=== PATIENT | female | born 1995 ===

== ENCOUNTER 2021-01-05 08:29 | Outpatient (REF) | payer OTHER, SELFPAY ==
[2021-01-05 10:42] LABS: MANUAL DIFF FLAG NO
[2021-01-05 10:43] LABS: Basophils Percent Auto 0.4 % (0-2); Eosinophils Absolute Auto 0.1 X10*3/uL (0.0-0.4); Eosinophils Percent Auto 0.8 % (0-4); Hematocrit 40.5 % (37-47); Hemoglobin 13.1 g/dl (12.0-16.0); Imm Gran Abs Auto 0.03 X10*3/uL (0.00-0.03); Imm Gran Pct Auto 0.3 % (0.0-0.4); Lymphocytes Percent Auto 33.4 % (20-40); Mean Corpuscular HGB Conc 32.3 g/dl (31.0-35.0); Mean Corpuscular Hemoglobin 28.7 pg (27.0-33.0); Mean Corpuscular Volume 88.6 fL (80-98); Mean Platelet Volume 10.1 fL (9.4-12.3); Monocytes Absolute Auto 0.6 X10*3/uL (0.1-1.2); Monocytes Percent Auto 6.2 % (2-11); Neutrophils Absolute Auto 5.3 X10*3/uL (2.0-8.3); Neutrophils Percent Auto 58.9 % (45-73); Platelet Count 266 X10*3/uL (160-400); Red Blood Count 4.57 X10*6/uL (4.20-5.50); Red Cell Distribution Width 13.1 % (11.0-16.0)
[2021-01-05 10:58] LABS: Alanine Aminotransferase 20 U/L (0-31); Albumin Level 4.2 g/dL (3.5-5.0); Alkaline Phosphatase 63 U/L (39-117); Anion Gap 14 (12-20); Aspartate Amino Transferase 17 U/L (5-31); Bilirubin Total 0.5 mg/dL (0.0-1.0); Blood Urea Nitrogen 13 mg/dL (9-16); Calcium 8.8 mg/dL (8.4-10.2); Carbon Dioxide 21 mmol/L (22-29); Chloride 111 mmol/L (96-108); Cholesterol 234 mg/dL; Estimated Glomerular Filt Rate > 60; Glucose Fasting 110 mg/dL (60-99); HDL Cholesterol 40 mg/dL; Iron 54 mcg/dL (30-160); LDL Cholesterol Calculated 130 mg/dl; Percent Iron Saturation 17 % (15-50); Potassium 3.9 mmol/L (3.3-5.1); Sodium 142 mmol/L (135-145); Total Iron Binding Capacity 315 mcg/dL (228-428); Total Protein 6.8 g/dL (6.5-8.0); Triglycerides 322 mg/dL; Unsaturated Iron Binding 261 ug/dL
[2021-01-05 11:00] LABS: Appearance Urine HAZY; Color Urine YELLOW; Glucose Urine UA NEG (NEG); Leukocyte Esterase Urine NEG (NEG); Nitrite Urine NEG (NEG); Specific Gravity - Urine 1.025 (1.005-1.025); Urine Blood TRACE (NEG); Urine Ketones NEG (NEG); Urine Protein NEG (NEG-TRACE)
[2021-01-05 11:13] LABS: RBC Urine 0-2 /HPF (0); WBC Urine 0-2 /HPF (0-4)
[2021-01-05 11:14] LABS: Squamous Epithelial Cell Urine 2+ /LPF
[2021-01-05 11:18] LABS: Ferritin 114 ng/mL (10-122); TSH reflex Free T4 4.04 uIU/mL (0.32-4.0)
[2021-01-05 11:51] LABS: Folate 11.8 ng/mL (> or = 4.0); Vitamin B12 341 pg/mL (200-900)
[2021-01-05 11:53] LABS: Free T4 (Free Thyroxine) 0.81 ng/dL (0.71-1.85)
== END 2021-01-05 08:30 | disposition home or self-care (01) ==
LOC: HO.WFDLDS 08:29
PROVIDERS: Visit Provider Family Medicine
DX: Z00.00 Encounter for general adult medical examination without abnormal findings (principal); R53.83 Other fatigue; E53.8 Deficiency of other specified B group vitamins
CPT/HCPCS: 36415; 80053; 80061; 81001; 81003; 82607; 82728; 82746; 83540; 84439; 84443; 85025

== ENCOUNTER 2021-10-08 10:26 | Outpatient (REF) | payer OTHER, SELFPAY ==
[2021-10-08 10:45] LABS: MANUAL DIFF FLAG NO
[2021-10-08 10:56] LABS: Basophils Percent Auto 0.7 % (0-2); Eosinophils Percent Auto 0.9 % (0-4); Hematocrit 41.5 % (37.0-47.0); Hemoglobin 13.8 g/dl (12.0-16.0); Imm Gran Abs Auto 0.01 X10*3/uL (0.00-0.03); Imm Gran Pct Auto 0.2 % (0.0-0.4); Lymphocytes Absolute Auto 1.3 X10*3/uL (1.2-4.9); Lymphocytes Percent Auto 29.1 % (20-40); Mean Corpuscular HGB Conc 33.3 g/dl (31.0-35.0); Mean Corpuscular Hemoglobin 28.9 pg (27.0-33.0); Mean Platelet Volume 9.3 fL (9.4-12.3); Monocytes Absolute Auto 0.5 X10*3/uL (0.1-1.2); Monocytes Percent Auto 9.8 % (2-11); Neutrophils Absolute Auto 2.7 x10*3/uL (2.0-8.3); Neutrophils Percent Auto 59.3 % (45-73); Platelet Count 253 X10*3/uL (160-400); Red Blood Count 4.77 X10*6/uL (4.20-5.50); Red Cell Distribution Width 12.7 % (11.0-16.0); White Blood Count 4.6 X10*3/uL (4.8-10.8)
[2021-10-08 11:04] LABS: Estimated Average Glucose 126 mg/dL
[2021-10-08 11:30] LABS: Alanine Aminotransferase 34 U/L (0-31); Albumin Level 4.4 g/dL (3.5-5.0); Alkaline Phosphatase 74 U/L (39-117); Anion Gap 12 (12-20); Aspartate Amino Transferase 31 U/L (5-31); Bilirubin Total 0.6 mg/dL (0.0-1.0); Blood Urea Nitrogen 12 mg/dL (9-16); Calcium 9.2 mg/dL (8.4-10.2); Carbon Dioxide 22 mmol/L (22-29); Chloride 107 mmol/L (96-108); Cholesterol 262 mg/dL; Estimated Glomerular Filt Rate > 60; Glucose Fasting 120 mg/dL (60-99); HDL Cholesterol 43 mg/dL; LDL Cholesterol Calculated 164 mg/dl; Potassium 4.3 mmol/L (3.3-5.1); Sodium 137 mmol/L (135-145); Total Protein 7.3 g/dL (6.5-8.0); Triglycerides 278 mg/dL
[2021-10-08 11:45] LABS: TSH reflex Free T4 2.74 uIU/mL (0.32-4.0)
[2021-10-08 11:59] LABS: Free T4 (Free Thyroxine) 0.89 ng/dL (0.71-1.85); Thyroid Stimulating Hormone 2.83 uIU/mL (0.32-4.0); Vitamin D 25-OH Total 15.9 ng/mL (>30)
[2021-10-10 06:21] LABS: Triiodothyronine T3 Total 104 ng/dL (76-181)
== END 2021-10-08 10:27 | disposition home or self-care (01) ==
LOC: HO.LAB 10:26
PROVIDERS: PCP Family Medicine; Visit Provider Family Medicine
DX: Z00.00 Encounter for general adult medical examination without abnormal findings (principal); E03.9 Hypothyroidism, unspecified; R79.89 Other specified abnormal findings of blood chemistry; E78.1 Pure hyperglyceridemia; R73.01 Impaired fasting glucose; E55.9 Vitamin D deficiency, unspecified; R53.83 Other fatigue
CPT/HCPCS: 36415; 80053; 80061; 82306; 83036; 84439; 84443; 84480; 85025

== ENCOUNTER 2022-01-31 08:25 | Outpatient (REF) | payer OTHER, SELFPAY ==
[2022-01-31 09:51] LABS: Estimated Average Glucose 126 mg/dL
[2022-01-31 10:12] LABS: Alanine Aminotransferase 29 U/L (0-31); Albumin Level 4.3 g/dL (3.5-5.0); Alkaline Phosphatase 85 U/L (39-117); Anion Gap 17 (12-20); Aspartate Amino Transferase 19 U/L (5-31); Bilirubin Total 0.4 mg/dL (0.0-1.0); Blood Urea Nitrogen 10 mg/dL (9-16); Calcium 9.4 mg/dL (8.4-10.2); Carbon Dioxide 22 mmol/L (22-29); Chloride 105 mmol/L (96-108); Cholesterol 256 mg/dL; Estimated Glomerular Filt Rate > 60; Glucose Fasting 119 mg/dL (60-99); HDL Cholesterol 42 mg/dL; LDL Cholesterol Calculated 140 mg/dl; Potassium 4.3 mmol/L (3.3-5.1); Sodium 140 mmol/L (135-145); Total Protein 7.1 g/dL (6.5-8.0); Triglycerides 370 mg/dL
[2022-01-31 10:34] LABS: Vitamin D 25-OH Total 12.4 ng/mL (>30)
[2022-02-02 11:17] LABS: TS Negative Control Passed; TS Panel A 0; TS Panel B 0; TS Positive Control Passed; TSpotTB Negative (Negative)
== END 2022-01-31 08:26 | disposition home or self-care (01) ==
LOC: HO.LAB 08:25
PROVIDERS: PCP Family Medicine; Visit Provider Family Medicine
DX: Z00.00 Encounter for general adult medical examination without abnormal findings (principal); E55.9 Vitamin D deficiency, unspecified; R73.01 Impaired fasting glucose; Z71.85 Encounter for immunization safety counseling
CPT/HCPCS: 36415; 80053; 80061; 82306; 83036; 86481

== ENCOUNTER → 2022-07-25 09:36 | Outpatient (BNVA) | payer OTHER, SELFPAY | PROVIDERS: PCP Family Medicine; Visit Provider Internal Medicine Endocrinology, Diabetes & Metabolism | DX: E28.2 Polycystic ovarian syndrome (principal) | CPT/HCPCS: 99202 ==

== ENCOUNTER 2022-11-25 14:59 | Outpatient (AMB) | payer OTHER, SELFPAY ==
[2022-11-25 15:01] VITALS: BP 128/82; PULSE 75; RESP 13; TEMP 36.1; O2SAT 95; BMI 61.6
--- NOTE | 2022-11-25 15:01 | MHC.PC.OV ---
Vital Signs 11/25/22 15:01 Height 5 ft 1 in Weight 326 lb BMI 61.6 BP 128/82 Blood Pressure Location Rt brachial Position Sitting Respiration 13 Pulse 75 Pulse Source Pulse Oximeter Temp 96.9 F Temp Source Temporal Artery Scan Pulse Oximetry (%) 95 Oxygen Delivery Method Room Air Intake Visit Reasons: Difficulty Breathing Intake Note: Patient states she has has a worsening cough for ~14 days. Patient states she does not recall a history of asthma. Patient reports sore throat and vomiting accompanies the cough and difficulty breathing. Patient tested at home for covid with a negative result this morning. Patient reports tryingn nyquil, ricola cough drops, and an old inhaler and these things helped but only short term. Patient reports she does not have any more inhallations left on the inhaler. Patient reports needing refills on her medications. Pump Runner Required: No Accompanied by: Self / Same As Patient Allergies bee pollen [BEE STINGS] Allergy (Unknown, Verified 11/25/22 15:17) ANAPHYLAXIS bee sting Allergy (Unknown, Uncoded 11/25/22 15:17) anaphylaxis Medication List - Last Reconciled 11/25/22 by Bella Pepper CNP clonidine HCl 0.1 mg PO BEDTIME ibuprofen 600 mg PO Q8H 10 days sertraline 50 mg PO DAILY Tobacco use date assessed: 11/25/22 Dental Screening Dental Screen Date: 11/25/22 Did you have a dental visit in the last 12 months?: No Did you have a dental problem in the last 6 months where you did not have access to dental care?: No Was dental information given to patient?: Patient has dentist HPI HPI Comments History of Present Illness Details 27 y/o female presents with c/o nonproductive cough for the past 14 days. She reports associated difficulty breathing, headache, and sore throat. She notes she vomited pale green secretion this morning. She notes brief relief with OTC remedies and an old albuterol inhaler. She notes she had a negative home covid test this morning. Denies fever, chills, body aches, fatigue, or weakness. She notes history of asthma and states her last episode was a year ago. She reports history of smoking cigarette occasionally for 2 years. She has not smoked in the past 1 year. 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 Cognitive needs: No Hearing needs: No Vision needs: No Questionnaire Thrive Questionnaire Date Thrive assessed: 05/28/22 ALIA-7 AMB Questionnaire ALIA-7 Date ALIA - 7 assessed: 05/28/22 Source: Developed by Drs. Mauro Callaway, Justine Krishnan, Christiaon June and colleagues, with an educational emelia from [employer]. Review of Systems Const Details: Const Denies chills, Denies fatigue, Denies fever(s), Denies headache(s) and Denies weakness ENT Denies dizziness and Denies headache(s) Card Denies chest pain, Denies lightheadedness, Denies dyspnea and Denies other (Palpitations) Resp Denies cough, Denies dyspnea, Denies wheezing and Denies other ( shortness of breath) GI Denies abdominal pain, Denies melena, Denies hematochezia, Denies change in bowel habits, Denies dyspepsia and Denies nausea Denies hematuria and Denies dysuria Musc Denies abnormal gait, Denies myalgias, Denies arthralgias, Denies numbness and Denies tingling Skin/Breast Denies rash, Denies unusual bruising and Denies wounds Neuro Denies abnormal gait, Denies dizziness, Denies headache(s), Denies memory loss, Denies numbness, Denies Sensory deficit (Neuro), Denies tingling and Denies weakness Psych Denies anxiety, Denies depression, Denies memory loss Endo Denies cold intolerance, Denies fatigue, Denies heat intolerance, Denies polydipsia and Denies polyuria Aller/Immun Denies wheezing Physical exam (Primary Care) Vital Signs: Last Vital Signs Temp 96.9 F 11/25/22 15:01 Pulse 75 11/25/22 15:01 Resp 13 11/25/22 15:01 BP 128/82 11/25/22 15:01 Pulse Ox 95 11/25/22 15:01 Oxygen Delivery Method Room Air 11/25/22 15:01 BMI result Body Mass Index 61.6 Tobacco/Smoking Status: Tobacco use Status Tobacco use date assessed 11/25/22 11/25/22 15:13 Patient Tobacco Use Status Former Tobacco user 11/25/22 15:03 e-Cigarette/Vaping Use Never Used 11/25/22 15:03 Thrive Assessment: Date of Thrive Assessment Date Thrive assessed 05/28/22 11/25/22 15:03 Const Other: General: no acute distress and well developed Nutritional Appearance: well nourished Orientation/consciousness: patient oriented x3 HENMT Head is normocephalic Bilateral ear canal and TM are normal Nasal turbinates and oropharynx are pink and moist Sinuses are nontender with palpation No auricular or cervical lymphadenopathy Eyes General: appearance normal, both eyes and all related structures Pupils: Equal, round and reactive pupils present EOM: EOMs intact bilaterally Resp Effort & Inspection: normal respiratory effort Auscultation: clear to auscultation bilaterally Cardio Rate: regular rate Rhythm: regular rhythm Heart sounds: S1 normal heart sound present, S2 normal heart sound present, no gallops, no murmurs and no rubs GI Palpation (GI): No Abdominal aortic bruit present, Soft to palpation, nontender, No hepatosplenomegaly present and No Rebound tenderness present Auscultation: normal bowel sounds General: Yes no CVA tenderness Back/Spine/Pelvis Back: no CVA tenderness Cervical Spine: cervical ROM normal and No Cervical spine tenderness Thoracic/Lumbar Spine: thoraco-lumbar ROM normal, No pain with thoraco-lumbar ROM, No thoracic spinal tenderness and No lumbar spinal tenderness Extrem General: Yes normal to inspection, No edema and No calf tenderness Skin General: warm and dry. Normal skin color. Normal skin turgor Lesions: no lesions Rashes: no rashes Trauma: no lacerations or abrasions Wounds: no wounds Nails: normal Neuro General: patient oriented x3, gait normal and no focal neuro deficit Cranial nerves: Yes Equal, round and reactive pupils present Cognition (Neuro): normal cognition Gait exam (Neuro): Normal gait present Sensory Exam: No Sensory deficit (Neuro) Psych Appearance: grossly normal Affect: normal affect Attitude: cooperative Thought process: Normal thought process present Assessment and Plan Assessment & Plan (1) Cough: Code(s): R05.9 - Cough, unspecified Plan: 27 y/o female presents with c/o nonproductive cough for the past 14 days. She reports associated difficulty breathing, headache, and sore throat. She notes brief relief with OTC remedies and an old albuterol inhaler. Lungs sounds clear bilaterally Likely allergy, although possible viral Benzonatate and albuterol inhaler ordered. Take as prescribed May take Tylenol ibuprofen for pain or discomfort Chest x-ray ordered Adequate hydration encouraged Cannot rule out COVID-19/RSV/Flu infection Nasal swab acquired and will be sent to the lab Return with worsening or new symptoms Verbalized understanding and agreed with treatment plan (2) Sore throat: Code(s): J02.9 - Acute pharyngitis, unspecified Plan: As above (3) Headache: Code(s): R51.9 - Headache, unspecified Plan: As above (4) Difficulty breathing: Code(s): R06.89 - Other abnormalities of breathing Plan: As above Orders: Orders XR chest 2V Today R05.9 - Cough, unspecified SARS-CoV2/FLU/RSV Today R05.9 - Cough, unspecified Medications: New benzonatate 200 mg PO BID PRN 20 caps 0RF cough albuterol sulfate 90 mcg/actuation 2 puffs inhalation Q4-6H PRN 8.5 grams 3RF shortness of breath or wheezing Changed From ibuprofen 600 mg PO Q8H 10 days 30 tabs 0RF To ibuprofen 600 mg PO Q8H 30 tabs 0RF From sertraline 50 mg PO DAILY To sertraline 50 mg PO DAILY 30 tabs 0RF 30 days From clonidine HCl 0.1 mg PO BEDTIME To clonidine HCl 0.1 mg PO BEDTIME 30 tabs 0RF 30 days Coding Level of Care Code Est Pt Level 3 (45561) Diagnoses Cough R05.9 Sore throat J02.9 Headache R51.9 Difficulty breathing R06.89
== END 2022-11-25 15:36 | disposition home or self-care (01) ==
PROVIDERS: PCP Family Medicine; Visit Provider Nurse Practitioner Family
DX: R05.9 Cough, unspecified (principal); J02.9 Acute pharyngitis, unspecified; R51.9 Headache, unspecified; R06.89 Other abnormalities of breathing
CPT/HCPCS: 99213

== ENCOUNTER 2022-11-25 15:55 | Outpatient (REF) | payer OTHER, SELFPAY ==
[2022-11-26 14:48] LABS: Influenza A PCR NEGATIVE (Negative); Influenza B PCR NEGATIVE (Negative); Resp Syncy Virus RNA Qual PCR NEGATIVE (Negative); SARS COV2 PCR INHOUSE NEGATIVE (Negative)
== END 2022-11-25 15:56 | disposition home or self-care (01) ==
LOC: HO.LAB 15:55
PROVIDERS: Visit Provider Nurse Practitioner Family
DX: R05.9 Cough, unspecified (principal); Z20.822 Contact with and (suspected) exposure to COVID-19
CPT/HCPCS: 0241U

== ENCOUNTER 2022-11-25 16:12 | Outpatient (REF) | payer OTHER, SELFPAY ==
--- NOTE | ~2022-11-25 | XR_ITS ---
EXAMINATION: XR CHEST CLINICAL INFORMATION: Cough. COMPARISON: Chest radiograph 08/11/2019. TECHNIQUE: 2 views of the chest were obtained. FINDINGS: No significant abnormality is noted involving the heart, lungs, mediastinum, bony thorax or soft tissues. XR/XR chest 2V IMPRESSION: Unremarkable examination.
== END 2022-11-25 16:13 | disposition home or self-care (01) ==
LOC: HO.XRAY 16:12
PROVIDERS: PCP Family Medicine; Visit Provider Nurse Practitioner Family
DX: R05.9 Cough, unspecified (principal)
CPT/HCPCS: 71046

== ENCOUNTER 2022-12-19 14:38 | Outpatient (AMB) | payer OTHER, SELFPAY ==
[2022-12-19 14:48] VITALS: BP 120/84; BMI 60.3
--- NOTE | 2022-12-19 14:48 | MHC.OFFVIS ---
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 Annual Research And Development Tester Required: No Information Interpreted: non-clinical & clinical Sustainability Officer: Sustainability Officer Present (Gopiyn) Allergies bee pollen [BEE STINGS] Allergy (Unknown, Verified 12/19/22 14:51) ANAPHYLAXIS bee sting Allergy (Unknown, Uncoded 12/19/22 14:51) anaphylaxis Medication List - Last Reconciled 12/19/22 by Anna Salmon CNM albuterol sulfate 90 mcg/actuation 2 puffs inhalation Q4-6H PRN benzonatate 200 mg PO BID PRN clonidine HCl 0.1 mg PO BEDTIME 30 days ibuprofen 600 mg PO Q8H sertraline 50 mg PO DAILY 30 days Is last menstrual period known: No (2 yrs without menses) Post menopausal: No HPI SAW FILER Annual HPI Details 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 She does not remember much about it. She had sex once when she was 17 years old but not since. She remembers being given a medicine that tasted like metal after the last visit and exam. She reports that she has always been overweight and ever since she went through puberty at age 11 or 12 she has been diagnosed with PCOS. 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 She says the manager editorial told her he was not sure that because she just had pre diabetes that the medication to help with weight loss would be okay for her. She said that she has been referred to the weight management program and they did call her but she is always busy at work and can not call and then by the time she gets out of work their office is closed she thinks she has an appointment with her primary care provider next week on the . She lives in [place] she says she lives with her parents and they are big people as well as well as her grandfather she says pretty much everybody has diabetes. She would like to lose weight and is really kind of working on it and she thinks she is dropped from 375-319 and she is very happy about that she does know that they might be different scales that she is comparing. She said she was given the referral for the weight management program already. She says she is motivated to lose the weight at this time and is doing her best She says she has trouble driving at night because she can not see very well and she says the eye doctor that she saw on [place] told her that he was concerned that she had diabetes and it could be related to that. She uses either powder/baby powder or deodorant under her breast and pannus to prevent irritation and both work for her Depending on the site she says she can not tell if she has an odor or not but she says her mother says she does. Did ask her if she has trouble sleeping, enquiring as to whether not she had sleep apnea and she says that at night she has to the world and she would know if she had it or not. Though it is noted in her chart under problem lists. [facility] Medical History PCOS (polycystic ovarian syndrome) Surgical History No pertinent past surgical history Family History (Updated 12/19/22 @ 14:52 by OLIVIA Burnett) Mother Scarlet fever Maternal Uncle Substance use disorder Maternal Grandmother Ovarian cancer Other Diabetes Social History (Updated 12/19/22 @ 14:53 by OLIVIA Burnett) Housing: Apartment Alcohol intake: current Alcohol intake frequency: holidays/special occasions only Patient Tobacco Use Status: Former Tobacco user e-Cigarette/Vaping Use: Never Used Second Hand Smoke Exposure: No service: No Current occupational status: employed 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 Cognitive needs: No Hearing needs: No Vision needs: No Female Reproductive History Menstrual Age of Menarche: 9 Duration of menses: other (irregular) control method: none Total pregnancies: 0 Date of last pap smear: 01/07/19 (negative) History of abnormal pap smear: No Physical Exam Vital Signs: Last Vital Signs BP 120/84 12/19/22 14:48 BMI result Body Mass Index 60.3 Const Nutritional Appearance: obese Chest Breast/axilla inspection: normal inspection of the breasts and normal inspection of the axillae Breast/axilla palpation: normal palpation of the breasts and normal palpation of the axillae Speculum Exam - Vagina: normal appearance of the vagina and other Speculum Exam - Cervix: normal appearance of the cervix and Other cervical findings present (limited views) Bimanual exam- vagina & uterus: other (uterus difficult to assess 2' habitus) Bimanual Exam- Adnexa, other: Other (palpation of adnexae limited 2' habitus) Results Reviewed Results Reviewed: Name: Velma Ordonez Age/Sex: /F : 1995 Unit#: [id number] Attend Dr: Vazquez Montilla MD Re01/31/22 Status: DEP REF Location: [facility] Disch: SPEC : [id number] BEAU: 01/31/22 STATUS: COMP REQ : [id number] RECD: 01/31/[address]: Vazquez Montilla MD COMP: 01/31/22 ENTERED: 01/31/[address]: ORDERED: CMP Fast, Lipid Panel, Vitamin D 25-OH Test Result Flag Reference Site Sodium 140 135-145 mmol/L Potassium 4.3 3.3-5.1 mmol/L CL 105 96-108 mmol/L CO2 22 22-29 mmol/L Gap 17 12-20 BUN 10 9-16 mg/dL Creat 0.77 0.5-1.4 mg/dL EGFR > 60 NOTE: For -Micronesian individuals, multiply the result by 1.210. Chronic Kidney Disease: Estimated GFR < 60 mL/min/1.73m2 Severe Kidney Disease: Estimated GFR < 15 mL/min/1.73m2 FBS 119 H 60-99 mg/dL A fasting glucose from 100-125 mg/dl is considered impaired (pre-diabetes). CA 9.4 8.4-10.2 mg/dL Total Bili 0.4 0.0-1.0 mg/dL AST (GOT) 19 5-31 U/L ALT (GPT) 29 0-31 U/L Protein, Total 7.1 6.5-8.0 g/dL Alb 4.3 3.5-5.0 g/dL Triglyceride 370 mg/dL Desirable Triglyceride: less than 150 mg/dL Borderline High Triglyceride 150-199 mg/dL High Triglyceride: 200-499 mg/dL Very High Triglyceride: greater than or equal to 5OO mg/dL Chol 256 mg/dL Desirable Cholesterol: less than 200 mg/dL Borderline High Cholesterol: 200-239 mg/dL High Cholesterol: greater than 239 mg/dL LDL Calculated 140 mg/dl Desirable LDL: less than 100 mg/dL Near Optimal/Above Optimal LDL: 110-129 mg/dL Borderline High LDL: 130-159 mg/dL High LDL: 160-189 mg/dL Very High LDL: greater than or equal to 190 mg/dL HDL 42 mg/dL Desirable HDL: greater than 40 mg/dL Note: This HDL assay may give artificially low results in patients with liver disease. Alk Phos 85 39-117 U/L Vit D 25-OH Tot 12.4 >30 ng/mL Health Based Reference Values* < 20 ng/mL Deficient 20-30 ng/mL Insufficient > 30 ng/mL Sufficient *Enoch MARROQUIN. N Engl J Med. 2007;357:266-280 Care must be taken in interpreting Vitamin D results from different laboratories and methodologies. Published data demonstrated that results from patients undergoing hemodialysis may show a negative bias when tested with various automated 25-OH vitamin D assays when compared to LC-MS/MS. When testing samples from patients whose predominant form of Vitamin D is Vitamin D2, such as patients receiving Vitamin D2 supplementation, results that are subtherapeutic should be confirmed with another method such as LC-MS/MS. Assessment & Plan Assessment & Plan (1) Pap smear for cervical cancer screening: Code(s): Z12.4 - Encounter for screening for malignant neoplasm of cervix (2) Pre-diabetes: Code(s): R73.03 - Prediabetes (3) PCOS (polycystic ovarian syndrome): Code(s): E28.2 - Polycystic ovarian syndrome (4) Morbid obesity with BMI of 60.0-69.9, adult: Code(s): E66.01 - Morbid (severe) obesity due to excess calories; Z68.44 - Body mass index [BMI] 60.0-69.9, adult (5) Anovulatory amenorrhea: Comment: Discussed concerns for hyperplasia etc. may very well need endometrial biopsy. Discussed possible EMB and future Mirena use for endometrial protection. Also possibly physically challenging it was who is difficult to fully visualize her cervix today. 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 She does not remember much about it. She had sex once when she was 17 years old but not since. She remembers being given a medicine that tasted like metal after the last visit and exam. She reports that she has always been overweight and ever since she went through puberty at age 11 or 12 she has been diagnosed with PCOS. 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 She says the manager editorial told her he was not sure that because she just had pre diabetes that the medication to help with weight loss would be okay for her. She said that she has been referred to the weight management program and they did call her but she is always busy at work and can not call and then by the time she gets out of work their office is closed she thinks she has an appointment with her primary care provider next week on the . She lives in [place] she says she lives with her parents and they are big people as well as well as her grandfather she says pretty much everybody has diabetes. She would like to lose weight and is really kind of working on it and she thinks she is dropped from 375-319 and she is very happy about that she does know that they might be different scales that she is comparing. She said she was given the referral for the weight management program already. She says she is motivated to lose the weight at this time and is doing her best She says she has trouble driving at night because she can not see very well and she says the eye doctor that she saw on [place] told her that he was concerned that she had diabetes and it could be related to that. She uses either powder/baby powder or deodorant under her breast and pannus to prevent irritation and both work for her Depending on the site she says she can not tell if she has an odor or not but she says her mother says she does. Did ask her if she has trouble sleeping, enquiring as to whether not she had sleep apnea and she says that at night she has to the world and she would know if she had it or not. Though it is noted in her chart under problem lists. Discussed her long-term history of her PCOS and the obesity and also now many years with no periods when she was getting periods they would be heavy for about 3 days or if they were light they might last five or 6 days-- she honestly can not remember how long it has been since she is had one. Discussed that aside from the weight and the PCOS that just the fact of the amenorrhea alone is a challenge and worries some because there can be buildup of abnormal cells in the lining of her uterus and this can lead to cancer and would need to be investigated as well. I also discussed that there were some long-term methods of control that her often used if somebody is actually considering bariatric surgery though if she is not sexually active she might not need them. However the Nexplanon has with it the side effect of weight gain increased appetite and so it is not necessarily the 1st choice either. Additionally placement of a Mirena would be physically very challenging as I could not guarantee that I actually was able to even visualize her cervix today Pap smear may would been done on Pap a cervix or a round protrusion of vaginal wall tissue appearing to be cervix. We she will have to wait and see how the results is. If she loses the weight we would be able to investigate further and she might very well need to have an endometrial biopsy in order to make sure that she does not have any cancerous or precancerous cells growing inside. For now we will start with a pelvic ultrasound to see if the lining of the uterus has thickened up we will have a visit after that. In addition I encouraged her to really work at making her health her priority because now is the time to try to lose weight because pre diabetes only heads in 1 direction if the factors that contribute to it do not change. She is planning on keeping her primary care appointment next week and I encouraged her to do so and I also encouraged her to consider calling the bariatric program now since she is not working today and the office might still be open. Since were talking about it and she is motivated this might be a good time. She says she has been encouraged by her father in mother showing some will power to so they are all helping each other out.(I also discussed that at a certain point when the obesity becomes so overwhelming and there is PCOS and prediabetes there are also chemical factors that make it even harder to lose weight despite what one does but still she should continue her best efforts) Orders: Orders CT NG by PCR Today Z01.419 - Encounter for gynecological examination (general) (routine) without abnormal findings Bacterial Vaginosis Panel Today Z01.419 - Encounter for gynecological examination (general) (routine) without abnormal findings Pap Smear Today Z01.419 - Encounter for gynecological examination (general) (routine) without abnormal findings US pelvic and transvaginal Today E28.2 - Polycystic ovarian syndrome, E66.01 - Morbid (severe) obesity due to excess calories, L68.0 - Hirsutism, N91.2 - Amenorrhea, unspecified, R73.03 - Prediabetes, Z12.4 - Encounter for screening for malignant neoplasm of cervix, Z68.44 - Body mass index [BMI] 60.0-69.9, adult Coding Level of Care Code New Pt Prev Care 18-39yr(45238 Diagnoses Pap smear for cervical cancer screening Z12.4 Pre-diabetes R73.03 PCOS (polycystic ovarian syndrome) E28.2 Morbid obesity with BMI of 60.0-69.9, adult E66.01; Z68.44 Anovulatory amenorrhea N91.2 Hirsutism L68.0
== END 2022-12-19 16:01 | disposition home or self-care (01) ==
PROVIDERS: PCP Family Medicine; Visit Provider Advanced Practice Midwife
DX: Z01.419 Encounter for gynecological examination (general) (routine) without abnormal findings (principal); E28.2 Polycystic ovarian syndrome; L68.0 Hirsutism; R73.03 Prediabetes; E66.01 Morbid (severe) obesity due to excess calories; Z68.44 Body mass index [BMI] 60.0-69.9, adult; N91.2 Amenorrhea, unspecified
CPT/HCPCS: 99385

== ENCOUNTER 2022-12-19 14:38 | Outpatient (REF) | payer OTHER, SELFPAY ==
[2022-12-19 18:36] LABS: CT PCR NOT DETECTED (Not Detect.); NG PCR NOT DETECTED (Not Detect.)
[2022-12-20 14:16] LABS: BV Int Neg Control Negative (Negative); BV Int Pos Control Positive (Positive)
[2022-12-24 21:08] LABS: HPV mRNA E6/E7 rflx Not Detected (Not Detected)
== END 2022-12-19 14:39 | disposition home or self-care (01) ==
LOC: HO.LNP 14:38
PROVIDERS: PCP Family Medicine; Visit Provider Advanced Practice Midwife
DX: Z01.419 Encounter for gynecological examination (general) (routine) without abnormal findings (principal); E65 Localized adiposity; R73.03 Prediabetes; E28.2 Polycystic ovarian syndrome; E66.01 Morbid (severe) obesity due to excess calories; L68.0 Hirsutism; Z68.44 Body mass index [BMI] 60.0-69.9, adult; Z79.899 Other long term (current) drug therapy
CPT/HCPCS: 0353U; 87480; 87510; 87624; 87660; 88142; 99385

== ENCOUNTER 2022-12-25 13:38 | Outpatient (AMB) | payer OTHER, SELFPAY ==
[2022-12-25 13:44] VITALS: BP 118/76; PULSE 102; BMI 60.8
--- NOTE | 2022-12-25 13:44 | MHC.OFFVIS ---
Intake Vital Signs 12/25/22 13:44 Height 5 ft 1 in Weight 321 lb 13.998 oz BMI 60.8 BP 118/76 Blood Pressure Location Lt brachial Position Sitting Pulse 102 H Pulse Source Pulse Oximeter Intake Visit Reasons: f/u PCOS/Confirmed Intake Note: Patient present for PCOS follow up visit. Director Strategic Account Management Required: No Accompanied by: Self / Same As Patient Allergies bee pollen [BEE STINGS] Allergy (Unknown, Verified 12/25/22 13:48) ANAPHYLAXIS bee sting Allergy (Unknown, Uncoded 12/19/22 14:51) anaphylaxis HPI HPI Comments History of Present Illness Details 26 YO Female with PMHx PCOS who is seen in consultation at the request of her PCP for PCOS. Dxed at age 12. Menarche was age 10. Menses have been irregula since age 12 . Has 1 menses /yr. Took BCP for 1 yr age13 off 7 yrs OCP use: as above . Seeing signal tester September 06 Metformin use: cannot tolerate due to GI Weight gain: No . but difficulty losing wt Hirsutism/hyperandrogenism: under chin -shaves has acne on face Not Trying to conceive/ No - does not have children Ovarian U/S: yes T2DM or acanthosis: No Lipids: [] BP: [] Labs: Prior workup showed normal testosterone, DHEA-S, 17 hydroxy progesterone Could not tolerate metformin PFSH Medical History PCOS (polycystic ovarian syndrome) Surgical History No pertinent past surgical history Family History Mother Scarlet fever Maternal Uncle Substance use disorder Maternal Grandmother Ovarian cancer Other Diabetes Social History Housing: Apartment Alcohol intake: current Alcohol intake frequency: holidays/special occasions only Patient Tobacco Use Status: Former Tobacco user e-Cigarette/Vaping Use: Never Used Second Hand Smoke Exposure: No service: No Current occupational status: employed 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 Cognitive needs: No Hearing needs: No Vision needs: No Female Reproductive History Menstrual Age of Menarche: 9 Physical Exam Vital Signs: Last Vital Signs Pulse 102 H 12/25/22 13:44 BP 118/76 12/25/22 13:44 BMI result Body Mass Index 60.8 Assessment & Plan Assessment & Plan (1) PCOS (polycystic ovarian syndrome): Code(s): E28.2 - Polycystic ovarian syndrome Plan: This is a 27-year-old female with history of PCOS. An adrenal and ovarian tumor have been ruled out as have been congenital adrenal hyperplasia. Plan is to continue weight loss attempts. Stressed the patient to make appointment with dedicated driver. She also has a follow-up with oven unloader. Also told her to get a sleep study to rule out sleep apnea. Will also start Ozempic for type 2 diabetes (2) Type 2 diabetes mellitus: Code(s): E11.9 - Type 2 diabetes mellitus without complications Plan: Will start Ozempic 0.25 mg Qwkly and titrate as tolerated . Went over side effects of Ozempic including but not limited to nausea, vomiting and rare risk of pancreatitis Ozempic 0.25 mg samples given the patient. Lot number [id number] expiration 04/30/2024 Medications: New semaglutide (Ozempic) 0.5 mg (0.736 mL) subcut QWEEK 3 mL 0RF Coding Level of Care Code Est Pt Level 3 (85270) Diagnoses PCOS (polycystic ovarian syndrome) E28.2 Type 2 diabetes mellitus E11.9
--- NOTE | 2022-12-25 14:15 | AM.OFFVISNUR ---
Intake Vital Signs 12/25/22 13:44 Height 5 ft 1 in Weight 321 lb 13.998 oz BMI 60.8 BP 118/76 Blood Pressure Location Lt brachial Position Sitting Pulse 102 H Pulse Source Pulse Oximeter Intake Visit Reasons: f/u PCOS/Confirmed Allergies bee pollen [BEE STINGS] Allergy (Unknown, Verified 12/25/22 13:48) ANAPHYLAXIS bee sting Allergy (Unknown, Uncoded 12/19/22 14:51) anaphylaxis Nursing Note Provided patient teaching for the use of Ozempic pen injections. We discussed cleansing of the skin and proper injection technique. We also discussed proper disposal of pen needles in a sharps container or puncture proof container. Patient provided verbal teach-back and agrees to call with further questions. Coding Diagnoses PCOS (polycystic ovarian syndrome) E28.2 Type 2 diabetes mellitus E11.9 Assessment & Plan Assessment & Plan (1) PCOS (polycystic ovarian syndrome): Code(s): E28.2 - Polycystic ovarian syndrome (2) Type 2 diabetes mellitus: Code(s): E11.9 - Type 2 diabetes mellitus without complications Medications: New semaglutide (Ozempic) 0.5 mg (0.736 mL) subcut QWEEK 3 mL 0RF
== END 2022-12-25 14:15 | disposition home or self-care (01) ==
PROVIDERS: PCP Family Medicine; Visit Provider Internal Medicine Endocrinology, Diabetes & Metabolism
DX: E28.2 Polycystic ovarian syndrome (principal); E11.9 Type 2 diabetes mellitus without complications
CPT/HCPCS: 99213

== ENCOUNTER → 2022-12-25 13:38 | Outpatient (BNVA) | payer OTHER, SELFPAY | PROVIDERS: Visit Provider Internal Medicine Endocrinology, Diabetes & Metabolism | DX: E28.2 Polycystic ovarian syndrome (principal); E11.9 Type 2 diabetes mellitus without complications | CPT/HCPCS: 99212 ==

== ENCOUNTER 2023-01-09 15:55 | Outpatient (REF) | payer OTHER, SELFPAY ==
--- NOTE | ~2023-01-09 | US_ITS ---
EXAMINATION: US PELVIS CLINICAL INFORMATION: Encounter for screening for malignant neoplasm of cervix. Unknown last menstrual period. COMPARISON: 02/01/2019 TECHNIQUE: Ultrasound of the pelvis was performed using both transabdominal and transvaginal transducers along with Doppler. Transvaginal imaging was performed due to inadequate visualization transabdominally. FINDINGS: The uterus is anteverted, heterogeneous and measures 8.0 x 3.2 x 3.8 cm. No discrete fibroids identified. Limited visualization of endometrium. Imaged segment of endometrium with thickness of 0.5 cm. Multiple cystic areas in the cervix are characteristic of nabothian cysts. There is no significant free fluid. Right ovary measures 2.8 x 2.7 x 1.7 cm, volume 6.7 mL and left ovary 1.8 x 2.2 x 1.8 cm, volume 3.7 mL. Both ovaries are grossly unremarkable; however, visualization limited due to bowel gas. US/US pelvic and transvaginal IMPRESSION: 1. No discrete fibroids. 2. Limited visualization of endometrium. Imaged segment of endometrium with thickness of 0.5 cm. 3. Bilateral ovaries are grossly unremarkable; however, limited visualization.
== END 2023-01-09 15:56 | disposition home or self-care (01) ==
LOC: HO.US 15:55
PROVIDERS: PCP Family Medicine; Visit Provider Advanced Practice Midwife
DX: E28.2 Polycystic ovarian syndrome (principal); E66.01 Morbid (severe) obesity due to excess calories; Z68.44 Body mass index [BMI] 60.0-69.9, adult; L68.0 Hirsutism
CPT/HCPCS: 76830; 76856

== ENCOUNTER 2023-04-28 15:30 | Outpatient (AMB) | payer OTHER, SELFPAY ==
--- NOTE | 2023-04-28 15:34 | MHC.OFFVIS ---
Intake Vital Signs 04/28/23 15:35 Height 5 ft 1 in Weight 324 lb 11.854 oz BMI 61.4 BP 118/90 H Blood Pressure Location Lt brachial Position Sitting Pulse 112 H Pulse Source Pulse Oximeter Intake Visit Reasons: PCOS-confirmed Intake Note: Patient presents today for PCOS follow up visit. Medical Lab Director Required: No Accompanied by: Self / Same As Patient Allergies bee pollen [BEE STINGS] Allergy (Unknown, Verified 04/28/23 15:41) ANAPHYLAXIS bee sting Allergy (Unknown, Uncoded 12/19/22 14:51) anaphylaxis HPI HPI Comments History of Present Illness Details 27 YO Female with PMHx PCOS who is seen in consultation at the request of her PCP for PCOS. Dxed at age 12. Menarche was age 10. Menses have been irregula since age 12 . Has 1 menses /yr. Took BCP for 1 yr age13 off 7 yrs OCP use: as above . Seeing wood cutter September 06 Metformin use: cannot tolerate due to GI Weight gain: No . but difficulty losing wt Hirsutism/hyperandrogenism: under chin -shaves has acne on face Not Trying to conceive/ No - does not have children Ovarian U/S: yes T2DM or acanthosis: No Lipids: [] BP: [] Labs: Prior workup showed normal testosterone, DHEA-S, 17 hydroxy progesterone Could not tolerate metformin . On Trulicity 0.75 mg Q weekly. 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 Cognitive needs: No Hearing needs: No Vision needs: No Female Reproductive History Menstrual Age of Menarche: 9 Physical Exam Vital Signs: Last Vital Signs Pulse 112 H 04/28/23 15:35 BP 118/90 H 04/28/23 15:35 BMI result Body Mass Index 61.4 Assessment & Plan Assessment & Plan (1) PCOS (polycystic ovarian syndrome): Code(s): E28.2 - Polycystic ovarian syndrome Plan: This is a 27-year-old female with history of PCOS. An adrenal and ovarian tumor have been ruled out as have been congenital adrenal hyperplasia. Plan is to continue weight loss attempts. She also has a follow-up with brick pitcher to discuss possible control or Mirena . Also told her to get a sleep study to rule out sleep apnea. Continue Trulicity. May consider use of spironolactone in future once control started (2) Type 2 diabetes mellitus: Code(s): E11.9 - Type 2 diabetes mellitus without complications Plan: Continue Trulicity Coding Level of Care Code Est Pt Level 3 (19481) Diagnoses PCOS (polycystic ovarian syndrome) E28.2 Type 2 diabetes mellitus E11.9
[2023-04-28 15:35] VITALS: BP 118/90; PULSE 112; BMI 61.4
== END 2023-04-28 15:53 | disposition home or self-care (01) ==
PROVIDERS: PCP Family Medicine; Visit Provider Internal Medicine Endocrinology, Diabetes & Metabolism
DX: E28.2 Polycystic ovarian syndrome (principal); E11.9 Type 2 diabetes mellitus without complications
CPT/HCPCS: 99213

== ENCOUNTER → 2023-04-28 15:30 | Outpatient (BNVA) | payer OTHER, SELFPAY | PROVIDERS: PCP Family Medicine; Visit Provider Internal Medicine Endocrinology, Diabetes & Metabolism | DX: E28.2 Polycystic ovarian syndrome (principal); E11.9 Type 2 diabetes mellitus without complications | CPT/HCPCS: 99212 ==

== ENCOUNTER 2023-05-09 13:05 | Outpatient (AMB) | payer OTHER, SELFPAY ==
[2023-05-09 13:13] VITALS: BP 120/80; BMI 56.3
--- NOTE | 2023-05-09 13:13 | MHC.OFFVIS ---
Intake Vital Signs 05/09/23 13:13 Height 5 ft 4 in Weight 328 lb BMI 56.3 BP 120/80 Intake Visit Reasons: Ultrasound results Manager Sap Required: No Allergies bee pollen [BEE STINGS] Allergy (Unknown, Verified 05/09/23 13:16) ANAPHYLAXIS bee sting Allergy (Unknown, Uncoded 05/09/23 13:16) anaphylaxis Medication List - Last Reconciled 05/09/23 by Anna Salmon CNM albuterol sulfate 90 mcg/actuation 2 puffs inhalation Q4-6H PRN benzonatate 200 mg PO BID PRN clonidine HCl 0.1 mg PO BEDTIME 30 days cyclobenzaprine 10 mg PO BEDTIME dulaglutide (Trulicity) 0.75 mg (0.5 mL) subcut QWEEK ibuprofen 600 mg PO Q8H sertraline 50 mg PO DAILY 30 days Is last menstrual period known: No Post menopausal: No HPI Ultrasound results HPI Details Patient is scheduled today for ultrasound results she has PCOS type 1 versus type 2 diabetes. She has started on Trulicity which she thinks is helping her though in terms of diet recall she told me she had pizza for dinner both of the last 2 days. She does feel it is helping suppress her appetite. She works in [place] and her primary doctors in [place] she lives in [place] so traveling to appointments is challenging she has been out of work because of a lower back issue for the last 2 weeks so she will be returning to work next week. She has not had a period in 2 years the ultrasound was done to be part of that evaluation. She said she does have a referral to bariatric surgery but has been very busy and has not been able to call them back but plans to I encouraged her to make that call right after leaving this office. I reviewed her essentially normal ultrasound though it was somewhat limited by limited visualization secondary to overlying bowel gas. Discussed all of the issues involved with her medical history as previously discussed in terms of the PCOS amenorrhea and management thereof. I am prescribing a course of Provera for her for to have a withdrawal bleed and I warned her of what to expect with a very heavy.. Additionally she wants to be on control to have more regular periods she did have a high blood pressure 2 weeks ago at her endocrinology visit but her blood pressure today is within normal range. I will trial her on control pills to start as the withdrawal bleed begins to wane, and we will see her in 3 months and reassess and reassess her blood pressure I told her that if she is seen by any provider where she has a elevated blood pressure that we may need to have her stop the control pills. Additionally discussed that at this point in time it may be a difficult thing to consider insertion of a Mirena IU S which might be more protective of the endometrial lining long-term for her but that at her pelvic exam at the last visit it was extremely difficult to even visualize her cervix so at this moment of time it might be a challenging thing to undertake but it can be considered in the future. We will see her in 3 months. 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 Cognitive needs: No Hearing needs: No Vision needs: No Female Reproductive History Menstrual Age of Menarche: 9 control method: none Physical Exam Vital Signs: Last Vital Signs BP 120/80 05/09/23 13:13 BMI result Body Mass Index 56.3 Results Reviewed Results Reviewed: Patient: Velma Ordonez MR#: [id number] : 1995 Acct:[id number] Age/Sex: 27 / F ADM Date: 01/09/23 Loc: HO.US Attending Dr: Anna Salmon CNM Ordering Physician: Anna Salmon CNM Date of Service: 01/09/23 Procedure(s): US pelvic and transvaginal Accession Number(s): [id number] cc: Vazquez Montilla MD; Anna Salmon~ EXAMINATION: US PELVIS CLINICAL INFORMATION: Encounter for screening for malignant neoplasm of cervix. Unknown last menstrual period. COMPARISON: 02/01/2019 TECHNIQUE: Ultrasound of the pelvis was performed using both transabdominal and transvaginal transducers along with Doppler. Transvaginal imaging was performed due to inadequate visualization transabdominally. FINDINGS: The uterus is anteverted, heterogeneous and measures 8.0 x 3.2 x 3.8 cm. No discrete fibroids identified. Limited visualization of endometrium. Imaged segment of endometrium with thickness of 0.5 cm. Multiple cystic areas in the cervix are characteristic of nabothian cysts. There is no significant free fluid. Right ovary measures 2.8 x 2.7 x 1.7 cm, volume 6.7 mL and left ovary 1.8 x 2.2 x 1.8 cm, volume 3.7 mL. Both ovaries are grossly unremarkable; however, visualization limited due to bowel gas. US/US pelvic and transvaginal IMPRESSION: 1. No discrete fibroids. 2. Limited visualization of endometrium. Imaged segment of endometrium with thickness of 0.5 cm. 3. Bilateral ovaries are grossly unremarkable; however, limited visualization. Dictated By: Juana Chapman MD Signed By: <Electronically signed by Juana Chapman MD in OV> 01/13/23 1350 DD/ 1611 Assessment & Plan Assessment & Plan (1) Anovulatory amenorrhea: Comment: Discussed concerns for hyperplasia etc. may very well need endometrial biopsy. Discussed possible EMB and future Mirena use for endometrial protection. Also possibly physically challenging it was who is difficult to fully visualize her cervix today. 05/09/2023 see note... Code(s): N91.2 - Amenorrhea, unspecified (2) Morbid obesity with BMI of 60.0-69.9, adult: Code(s): E66.01 - Morbid (severe) obesity due to excess calories; Z68.44 - Body mass index [BMI] 60.0-69.9, adult (3) Hirsutism: Code(s): L68.0 - Hirsutism Plan Patient is scheduled today for ultrasound results she has PCOS type 1 versus type 2 diabetes. She has started on Trulicity which she thinks is helping her though in terms of diet recall she told me she had pizza for dinner both of the last 2 days. She does feel it is helping suppress her appetite. She works in [place] and her primary doctors in [place] she lives in [place] so traveling to appointments is challenging she has been out of work because of a lower back issue for the last 2 weeks so she will be returning to work next week. She has not had a period in 2 years the ultrasound was done to be part of that evaluation. She said she does have a referral to bariatric surgery but has been very busy and has not been able to call them back but plans to I encouraged her to make that call right after leaving this office. I reviewed her essentially normal ultrasound though it was somewhat limited by limited visualization secondary to overlying bowel gas. Discussed all of the issues involved with her medical history as previously discussed in terms of the PCOS amenorrhea and management thereof. I am prescribing a course of Provera for her for to have a withdrawal bleed and I warned her of what to expect with a very heavy.. Additionally she wants to be on control to have more regular periods she did have a high blood pressure 2 weeks ago at her endocrinology visit but her blood pressure today is within normal range. I will trial her on control pills to start as the withdrawal bleed begins to wane, and we will see her in 3 months and reassess and reassess her blood pressure I told her that if she is seen by any provider where she has a elevated blood pressure that we may need to have her stop the control pills. Additionally discussed that at this point in time it may be a difficult thing to consider insertion of a Mirena IU S which might be more protective of the endometrial lining long-term for her but that at her pelvic exam at the last visit it was extremely difficult to even visualize her cervix so at this moment of time it might be a challenging thing to undertake but it can be considered in the future. We will see her in 3 months. Medications: New medroxyprogesterone (Provera) 10 mg PO DAILY 10 tabs 0RF desog-e.estradiol/e.estradiol 0.15-0.02 mgx21 /0.01 mg x 5 start when withdrawal bleed from provera is slowing down 1 tab PO DAILY 84 tabs 1RF Coding Level of Care Code Est Pt Level 3 (90047) Diagnoses Anovulatory amenorrhea N91.2 Morbid obesity with BMI of 60.0-69.9, adult E66.01; Z68.44 Hirsutism L68.0
== END 2023-05-09 14:43 | disposition home or self-care (01) ==
LOC: HO.HWSM 13:05
PROVIDERS: PCP Family Medicine; Visit Provider Advanced Practice Midwife
DX: N91.2 Amenorrhea, unspecified (principal); E66.01 Morbid (severe) obesity due to excess calories; Z68.44 Body mass index [BMI] 60.0-69.9, adult; L68.0 Hirsutism
CPT/HCPCS: 99213

== ENCOUNTER → 2023-05-09 13:05 | Outpatient (BNVA) | payer OTHER, SELFPAY | PROVIDERS: PCP Family Medicine; Visit Provider Advanced Practice Midwife | DX: N91.2 Amenorrhea, unspecified (principal); L68.0 Hirsutism; E66.01 Morbid (severe) obesity due to excess calories; Z68.43 Body mass index [BMI] 50.0-59.9, adult | CPT/HCPCS: 99212 ==

== ENCOUNTER 2023-06-19 09:28 | Outpatient (AMB) | payer OTHER, SELFPAY ==
--- NOTE | 2023-06-19 09:07 | MHC.PC.OV ---
Vital Signs 06/19/23 09:38 06/19/23 09:59 Height 5 ft 4 in Weight 328 lb BMI 56.3 BP 138/91 H 140/90 H Blood Pressure Location Lt radial Lt radial Position Sitting Sitting Respiration 13 Pulse 106 H 88 Pulse Source Pulse Oximeter Pulse Oximeter Temp 97.7 F Temp Source Temporal Artery Scan Pulse Oximetry (%) 99 Oxygen Delivery Method Room Air Intake Visit Reasons: headache near taoism Intake Note: Patient is here for a headache near her left taoism. Patient denies any other symptoms. Patient recalls she needs to get back on Sertraline. 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: No Accompanied by: Self / Same As Patient Allergies bee pollen [BEE STINGS] Allergy (Unknown, Verified 06/19/23 09:54) ANAPHYLAXIS bee sting Allergy (Unknown, Uncoded 06/19/23 09:44) anaphylaxis Medication List - Last Reconciled 06/19/23 by Carmen Clement, [facility]- albuterol sulfate 90 mcg/actuation 2 puffs inhalation Q4-6H PRN desog-e.estradiol/e.estradiol 0.15-0.02 mgx21 /0.01 mg x 5 1 tab PO DAILY dulaglutide (Trulicity) 0.75 mg (0.5 mL) subcut QWEEK ibuprofen 600 mg PO Q8H sertraline 50 mg PO DAILY 30 days Tobacco use date assessed: 06/19/23 Dental Screening Dental Screen Date: 06/19/23 Did you have a dental visit in the last 12 months?: No Did you have a dental problem in the last 6 months where you did not have access to dental care?: No Was dental information given to patient?: Patient has dentist HPI HPI Comments History of Present Illness Details Here today w/ headache. Reports hx of headaches, not active w/ neuro. Headache started 2 days ago while she was at home lying on her belly doing homework. She went to get up and strained and felt extreme pressure in her head mainly in the left temporal area and lost vision in the left eye for 1-2 minutes. Reports her taoism was sore to touch. Her vision returned to normal after the 1-2 minutes. The soreness to her taoism remained for the last 2 days. She did take ibuprofen 800 mg to help. She denies a thunderclap sensation. Further denies fever, chills, trauma to the head. Her blood pressure is elevated today. Reports that she has not on medications and is not seeing a long distance billing operator. Elevated again on recheck She is on oral contraceptives. Reports she has been on these for years. [facility] Medical History PCOS (polycystic ovarian syndrome) Surgical History No pertinent past surgical history Family History Mother Scarlet fever Maternal Uncle Substance use disorder Maternal Grandmother Ovarian cancer Other Diabetes Social History (Updated 06/19/23 @ 09:46 by Jailene Frye CMA) Household Members: Family Both parents involved: Yes Caregiver staying overnight: No Housing: Apartment Are you a primary career law clerk to a significant other at home: No Do you presently have visiting nurse or other home services: No 75 years or older and lives alone: No Alcohol intake: current Alcohol intake frequency: holidays/special occasions only Patient Tobacco Use Status: Former Tobacco user e-Cigarette/Vaping Use: Never Used Second Hand Smoke Exposure: No Use of substances other than those prescribed or required for medical reasons: No Have you been hit, kicked, punched, or otherwise hurt by someone within the past year? 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 Cognitive needs: No Hearing needs: No Vision needs: No Female Reproductive History Menstrual Age of Menarche: 9 Questionnaire PHQ-9 Over the last 2 weeks, how often have you been bothered by any of the following problems? 1. Little interest or pleasure in doing things: more than half the days 2. Feeling down, depressed, or hopeless: several days 3. Trouble falling or staying asleep, or sleeping too much: several days 4. Feeling tired or having little energy: several days 5. Poor appetite or overeating: several days 6. Feeling bad about yourself - or that you are a failure or have let yourself or your family down: not at all 7. Trouble concentrating on things, such as reading the newspaper or watching television: not at all 8. Moving or speaking so slowly that other people could have noticed. Or the opposite - being so fidgety or restless that you have been moving around a lot more than usual: not at all 9. Thoughts that you would be better off or of hurting yourself in some way: not at all Total score: 6 Depression Screening Interpretation: Positive Depression Screening Done: Yes 41248 - PHQ-9 Billing: Yes Source: Developed by Drs. Mauro Callaway, Justine Krishnan, Christiano June and colleagues, with an educational emelia from [employer]. Thrive Questionnaire Date Thrive assessed: 06/19/23 I am a: Patient What is your living situation today?: I have a steady place to live Within the past 12 months, did the food you bought not last and you didn't have the money to get more?: Never true Within the past 12 months, did you worry whether your food would run out before you got money to buy more?: Never true Do you have trouble paying for medicines?: No Do you have trouble getting transportation to medical appointments?: No Do you have trouble paying your heating and electricity bill?: No Do you have trouble taking care of your child, family member or friend?: No Do you have trouble with day-to-day activities such as bathing, preparing meals, shopping, managing finances, etc.?: No Are you currently unemployed and looking for a job?: No Are you interested in more education?: No Currently or been in a relationship where the following occur: no concerns reported THRIVE Score: 0 AUDIT C Alcohol Use Questionnaire (AUDIT-C) 1. How often do you have a drink containing alcohol?: Monthly or less 3. How often do you have six or more drinks on one occasion?: Never Total Score: 1 ALIA-7 AMB Questionnaire ALIA-7 Date ALIA - 7 assessed: 06/19/23 Feeling nervous, anxious, or on edge: 3 = Nearly every day Not being able to stop or control worryin = Several days Worrying too much about different things: 1 = Several days Trouble relaxin = Not at all Being so restless that it is hard to sit still: 1 = Several days Becoming easily annoyed or irritable: 2 = More than half the days Feeling afraid as if something awful might happen: 3 = Nearly every day Total ALIA-7 score (0-4 normal; 5-9 mild; 10-14 moderate; 15-21 severe): 11 Source: Developed by Drs. Mauro Callaway, Justine Krishnan, Christiano June and colleagues, with an educational emelia from [employer]. ALIA-7 Assessment Billing ALIA-7 Assessment Tool: ALIA-7 Assessment 33866 Review of Systems Const All systems reviewed & are unremarkable except as noted in HPI and below Physical exam (Primary Care) Vital Signs: Last Vital Signs Temp 97.7 F 06/19/23 09:38 Pulse 106 H 06/19/23 09:38 Resp 13 06/19/23 09:38 BP 138/91 H 06/19/23 09:38 Pulse Ox 99 06/19/23 09:38 Oxygen Delivery Method Room Air 06/19/23 09:38 BMI result Body Mass Index 56.3 BMI Assessment/Plan discussion: High BMI High, discussed plan: lifestyle Tobacco/Smoking Status: Tobacco use Status Tobacco use date assessed 06/19/23 06/19/23 09:48 Patient Tobacco Use Status Former Tobacco user 06/19/23 09:46 e-Cigarette/Vaping Use Never Used 06/19/23 09:46 PHQ-9: PHQ-9 Score PHQ-9: Total score 6 06/19/23 09:55 Depression Screening Interpretation: Positive Thrive Assessment: Date of Thrive Assessment Date Thrive assessed 06/19/23 06/19/23 09:48 Currently or been in a relationship where the following occur: no concerns reported Const Other: Awake alert oriented no acute distress Head is atraumatic, normocephalic No pain over temporal area today PERRLA, EOMI Neck full range of motion Regular rate and rhythm Lung sounds clear to auscultation bilat Moves all extremities x4 No focal neuro deficits noted on exam Assessment and Plan Assessment & Plan (1) Sudden visual loss of left eye: Code(s): H53.132 - Sudden visual loss, left eye (2) Headache: Code(s): R51.9 - Headache, unspecified (3) Elevated blood pressure reading in office without diagnosis of hypertension: Code(s): R03.0 - Elevated blood-pressure reading, without diagnosis of hypertension Plan Seen today with concerning symptoms of a headache with sudden visual loss affecting the left eye. Unfortunately she is not currently active with an eye doctor. I have ordered a stat ophthalmology evaluation. She is aware that this may take some time as she has not active with a group at the current time and her insurance does limit some of her access unfortunately. I will order a stat CT scan with and without contrast and check some labs. I have also ordered a stat referral to Neurology for further evaluation and treatment. In regards to her blood pressure is elevated today. Trending looks like her diastolic is usually in the 90s and the systolic blood pressure is variable. She is also on an oral contraceptive which contains estrogen. She may benefit from being on a another contraceptive product given her history. We will have her come back in 1 week to follow up on the testing and consultation reports as well as the labs. And for a recheck of her blood pressure. I do recommend her to follow up with her primary care for these things as this is more of a chronic complaint. Although I will be happy to see her back in 1 week. I did advise her that should she experience see same symptoms again before any of her consultations or CT scan she should immediately report to the emergency room for further evaluation and treatment. Total time spent caring for the patient today was 45 minutes. This includes time spent before the visit reviewing the chart, time spent during the visit, and time spent after the visit on documentation This note is constructed using voice recognition software. While every effort has been made to ensure accuracy in rerolling machine operator, still errors may have been included Sometimes, these errors may affect the content or meaning of the given sentence . Orders: Orders CT head/brain wo/w IV con Today H53.132 - Sudden visual loss, left eye, R51.9 - Headache, unspecified Erythrocyte Sedimentation Rate Today H53.132 - Sudden visual loss, left eye, R51.9 - Headache, unspecified CRP High Sensitivity Today H53.132 - Sudden visual loss, left eye, R51.9 - Headache, unspecified Basic Metabolic Panel Today H53.132 - Sudden visual loss, left eye, R51.9 - Headache, unspecified Referrals Ophthalmology Referral H53.132 - Sudden visual loss, left eye, R51.9 - Headache, unspecified Neurology Referral H53.132 - Sudden visual loss, left eye, R51.9 - Headache, unspecified Coding Level of Care Code Est Pt Level 5 (12956) Diagnoses Sudden visual loss of left eye H53.132 Headache R51.9 Elevated blood pressure reading in office without diagnosis of hypertension R03.0 Additional Codes ALIA-7 Assessment Billing - ALIA-7 Assessment Tool: ALIA-7 Assessment 57665 ([id number])
[2023-06-19 09:38] VITALS: BP 138/91; PULSE 106; RESP 13; TEMP 36.5; O2SAT 99; BMI 56.3
[2023-06-19 09:59] VITALS: BP 140/90; PULSE 88
== END 2023-06-19 10:13 | disposition home or self-care (01) ==
PROVIDERS: PCP Family Medicine; Visit Provider Nurse Practitioner Family
DX: H53.132 Sudden visual loss, left eye (principal); R51.9 Headache, unspecified; R03.0 Elevated blood-pressure reading, without diagnosis of hypertension
CPT/HCPCS: 99215

== ENCOUNTER 2023-06-19 10:25 | Outpatient (REF) | payer OTHER, SELFPAY ==
[2023-06-19 12:15] LABS: Estimated Average Glucose 143 mg/dL; Hemoglobin A1c % 6.6 % (<6.0)
[2023-06-19 12:30] LABS: Anion Gap 14 (12-20); Blood Urea Nitrogen 11 mg/dL (9-16); Calcium 9.3 mg/dL (8.4-10.2); Carbon Dioxide 22 mmol/L (22-29); Chloride 107 mmol/L (96-108); Estimated Glomerular Filt Rate > 60; Glucose Random 128 mg/dL (60-115); Sodium 139 mmol/L (135-145)
[2023-06-19 13:21] LABS: Erythrocyte Sedimentation Rate 14 MM/HR (0-20)
[2023-06-20 13:48] LABS: CRP High Sensitivity >10.0 mg/L
== END 2023-06-19 10:26 | disposition home or self-care (01) ==
LOC: HO.WFDLDS 10:25
PROVIDERS: Referring Provider Internal Medicine Endocrinology, Diabetes & Metabolism; Visit Provider Nurse Practitioner Family
DX: E11.9 Type 2 diabetes mellitus without complications (principal); H53.132 Sudden visual loss, left eye; R51.9 Headache, unspecified
CPT/HCPCS: 36415; 80048; 83036; 85652; 86141

== ENCOUNTER 2023-07-11 15:40 | Outpatient (REF) | payer OTHER, SELFPAY ==
--- NOTE | ~2023-07-11 | CT_ITS ---
EXAMINATION: CT head/brain wo IV con CLINICAL INFORMATION: Reason for Exam H54.62 - Unqualified visual loss, left eye, normal vision right eye COMPARISON: MR brain 02/04/2019 TECHNIQUE: Contiguous axial imaging was performed from the skull base to vertex without intravenous contrast. Sagittal and coronal reformatted images were obtained. This CT examination was performed using dose optimization techniques as appropriate, variously including the following: * Automated exposure control * Adjustment of mA and/or kV according to patient size (this includes techniques or standardized protocols for targeted exams where dose is matched to indication/reason for exam; i.e. extremities or head) Use of iterative reconstruction technique DLP: 856.11 mGy-cm mGy-cm FINDINGS: There is no evidence of acute intracranial hemorrhage. No mass-effect or ventricular shift is noted. No acute, territorial loss of coello-white differentiation. Empty sella turcica. The ventricles and sulci are appropriate in size and configuration for the patient's stated age. No depressed calvarial fracture. Left maxillary sinus mucus retention cyst/polyp with additional trace scattered paranasal sinus mucosal thickening. The mastoid air cells are clear. CT/CT head/brain wo IV con IMPRESSION: No acute intracranial hemorrhage or territorial loss of coello-white differentiation. Empty sella turcica. Clinical correlation for signs of idiopathic intracranial hypertension is suggested.
== END 2023-07-11 15:41 | disposition home or self-care (01) ==
LOC: HO.CT 15:40
PROVIDERS: PCP Family Medicine; Visit Provider Nurse Practitioner Family
DX: H54.62 Unqualified visual loss, left eye, normal vision right eye (principal); H53.132 Sudden visual loss, left eye; R51.9 Headache, unspecified
CPT/HCPCS: 70450

== ENCOUNTER 2023-08-07 11:25 | Outpatient (AMB) | payer OTHER, SELFPAY ==
--- NOTE | 2023-08-07 11:31 | A.OFFPC_ITS ---
Vital Signs 08/07/23 11:33 Height 5 ft 1 in Weight 323 lb BMI 61.0 BP 120/60 Blood Pressure Location Rt radial Position Sitting Pulse 89 Pulse Source Pulse Oximeter Pulse Oximetry (%) 98 Oxygen Delivery Method Room Air Intake Visit Reasons: discuss CT of head findings Allergies bee pollen [BEE STINGS] Allergy (Unknown, Verified 08/07/23 11:36) ANAPHYLAXIS bee sting Allergy (Unknown, Uncoded 06/19/23 09:44) anaphylaxis Medication List - Last Reconciled 08/07/23 by Carmen Clement, [facility]- albuterol sulfate 90 mcg/actuation 2 puffs inhalation Q4-6H PRN desog-e.estradiol/e.estradiol 0.15-0.02 mgx21 /0.01 mg x 5 1 tab PO DAILY dulaglutide (Trulicity) 0.75 mg (0.5 mL) subcut QWEEK ibuprofen 600 mg PO Q8H sertraline 50 mg PO DAILY 30 days Tobacco use date assessed: 06/19/23 Dental Screening Dental Screen Date: 06/19/23 HPI HPI Comments History of Present Illness Details At previous visit: Here today w/ he adache. Reports hx of headaches, not active w/ neuro. Headache started 2 days ago while margy benítez was at home rosita dede on her belly doi ng homework. She went to get up and strained and felt extreme pressure in her head mainly in the left tempo ral area and lost vision in the left eye for 1-2 minut es. Reports her t emple was sore to touch. Her vision returned to major l after the 1-2 mi nutes. The sorene ss to her caodaism r emained for the la st 2 days. She di d take ibuprofen 8 00 mg to help. She denies a thunderc lap sensation. Fu rther denies fever , chills, trauma t o the head. Her b lood pressure is e levated today. 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 Elevated again on recheck She is o n oral contracepti ves. Reports she has been on these for years. Here today to fu on res ults: CT scan shoaib ws No acute intrac ranial hemorrhage or territorial los s of coello-white di fferentiation. E mpty sella turcica . Clinical correla tion for signs of idiopathic intracr anial hypertension is suggested. Sh e cont to have donn lly bad, pounding headaches, unrelie domenica with medicatio ns. No visual los s this time. Was not able to get ap pt w/ the eye doct or. Insurance iss ues. Will refer t o NN to help acces s care. has brandi t scheduled w/ [facility] y[facility] to discuss OCP. [facility] Medical History PCOS (polycystic ovarian syndrome) Surgical History No pertinent past surgical history Family History Mother Scarlet fever Maternal Uncle Substance use disorder Maternal Grandmother Ovarian cancer Other Diabetes Social History (Updated 06/19/23 @ 09:46 by Jailene Frye CMA) Household Members: Family Both parents involved: Yes Caregiver staying overnight: No Housing: Apartment Are you a primary skin care therapist to a significant other at home: No Do you presently have visiting nurse or other home services: No 75 years or older and lives alone: No Alcohol intake: current Alcohol intake frequency: holidays/special occasions only Patient Tobacco Use Status: Former Tobacco user e-Cigarette/Vaping Use: Never Used Second Hand Smoke Exposure: No service: No Current occupational status: employed 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 Cognitive needs: No Hearing needs: No Vision needs: No Female Reproductive History Menstrual Age of Menarche: 9 Questionnaire Thrive Questionnaire Date Thrive assessed: 06/19/23 ALIA-7 AMB Questionnaire ALIA-7 Date ALIA - 7 assessed: 06/19/23 Source: Developed by Drs. Mauro Callaway, Justine Krishnan, Christiano June and colleagues, with an educational emelia from [employer]. Review of Systems Const All systems reviewed & are unremarkable except as noted in HPI and below Physical exam (Primary Care) BMI Assessment/Plan discussion: High BMI High, discussed plan: lifestyle Tobacco/Smoking Status: Tobacco use Status Tobacco use date assessed 06/19/23 06/19/23 09:48 Patient Tobacco Use Status Former Tobacco user 06/19/23 09:46 e-Cigarette/Vaping Use Never Used 06/19/23 09:46 Thrive Assessment: Date of Thrive Assessment Date Thrive assessed 06/19/23 06/19/23 09:48 Const Other: Awake alert oriented no acute distress Head is atraumatic, normocephalic No pain over temporal area today PERRLA, EOMI Neck full range of motion Regular rate and rhythm Lung sounds clear to auscultation bilat Moves all extremities x4 No focal neuro deficits noted on exam Assessment and Plan Assessment & Plan (1) Encounter for screening involving social determinants of health (SDoH): Comment: Referral placed to nurse navigation team to help her access resources to an backpackers manager who works with her health insurance. Code(s): Z13.9 - Encounter for screening, unspecified (2) Empty sella turcica: Comment: CT SCAN 06/2023 Empty sella turcica. Clinical correlation for signs of idiopathic intracranial hypertension is suggested. Referred to [facility] Code(s): E23.6 - Other disorders of pituitary gland (3) Elevated blood pressure reading in office without diagnosis of hypertension: Comment: Blood pressure today is within normal limits. No further treatment is necessary. Code(s): R03.0 - Elevated blood-pressure reading, without diagnosis of hypertension Plan This note is constructed using voice recognition software. While every effort has been made to ensure accuracy in sign erector and repairer, still errors may have been included Sometimes, these errors may affect the content or meaning of the given sentence . Total time spent caring for the patient today was 30 minutes. This includes time spent before the visit reviewing the chart, time spent during the visit, and time spent after the visit on documentation Orders: Referrals Nurse Navigator Referral Z13.9 - Encounter for screening, unspecified Medications: New epinephrine (EpiPen) 0.3 mg (0.3 mL) IM Q4H PRN 2 ea 0RF anaphylaxis Patient Instructions: Return to office in 6 weeks to follow up on your consults and treatment plan. Sooner if you need something. Coding Level of Care Code Est Pt Level 4 (45765) Diagnoses Encounter for screening involving social determinants of health (SDoH) Z13.9 Empty sella turcica E23.6 Elevated blood pressure reading in office without diagnosis of hypertension R03.0
[2023-08-07 11:33] VITALS: BP 120/60; PULSE 89; O2SAT 98; BMI 61.0
== END 2023-08-07 11:58 | disposition home or self-care (01) ==
PROVIDERS: PCP Family Medicine; Visit Provider Nurse Practitioner Family
DX: E23.6 Other disorders of pituitary gland (principal); R03.0 Elevated blood-pressure reading, without diagnosis of hypertension
CPT/HCPCS: 99214

== ENCOUNTER 2023-08-12 13:36 | Outpatient (AMB) | payer OTHER, SELFPAY ==
--- NOTE | 2023-08-12 14:45 | A.OFFVIS_ITS ---
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 Present Allergies bee pollen [BEE STINGS] Allergy (Unknown, Verified 08/12/23 14:49) ANAPHYLAXIS bee sting Allergy (Unknown, Uncoded 08/12/23 14:49) anaphylaxis Medication List - Last Reconciled 08/12/23 by Anna Salmon CNM albuterol sulfate 90 mcg/actuation 2 puffs inhalation Q4-6H PRN desog-e.estradiol/e.estradiol 0.15-0.02 mgx21 /0.01 mg x 5 1 tab PO DAILY dulaglutide (Trulicity) 0.75 mg (0.5 mL) subcut QWEEK epinephrine (EpiPen) 0.3 mg (0.3 mL) IM Q4H PRN ibuprofen 600 mg PO Q8H sertraline 50 mg PO DAILY 30 days Is last menstrual period known: Yes Last menstrual period: 07/21/23 Do you need a note to return to daycare/school/sports/work: No HPI HPI 3 month follow up abnormal bleeding: Details: Patient is here for follow-up of her abnormal bleeding pattern and use of control pill. She got her period after the Provera and felt much better. She started the pills just as the bleeding was slowing down and has been getting a period regulary and on time, and has been right on target with her pills. She has been doing her very best to try and lose weight and watch carbs and eat more salads and she has appointment coming up with endocrinology and primary care follow-up as well and she was just recently seen there as well. Of note in her history it appeared that she had lost 5 lb recently but had a resultant elevated BMI from 56-61 and it is noted that previously her height had been noted as 5 ft 4 where as today and last 2 visits was 5 1, I did measure the patient and confirmed her gary today which is 5ft 2 inches giving her a BMI of 59. She denies any negative side effects from the OCPs. [facility] Medical History PCOS (polycystic ovarian syndrome) Surgical History No pertinent past surgical history Family History Mother Scarlet fever Maternal Uncle Substance use disorder Maternal Grandmother Ovarian cancer Other Diabetes Social History Household Members: Family Both parents involved: Yes Caregiver staying overnight: No Housing: Apartment Are you a primary lawn care professional to a significant other at home: No Do you presently have visiting nurse or other home services: No 75 years or older and lives alone: No Alcohol intake: current Alcohol intake frequency: holidays/special occasions only Patient Tobacco Use Status: Former Tobacco user e-Cigarette/Vaping Use: Never Used Second Hand Smoke Exposure: No service: No Current occupational status: employed 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 Cognitive needs: No Hearing needs: No Vision needs: No Female Reproductive History Menstrual Age of Menarche: 9 Duration of menses: 3-5 days Date of last menstrual period: 07/21/23 control method: pills Total pregnancies: 0 Date of last pap smear: 12/20/22 (negative,previous pap ,2019 ,wnl) History of abnormal pap smear: No Physical Exam Vital Signs: Last Vital Signs BP 122/74 08/12/23 14:50 BMI result Body Mass Index 61.0 Results Reviewed Results Reviewed: Name: Velma Ordonez Age/Sex: 27/F Attending: Anna Salmon CNM : 1995 Submitted by: Anna Salmon CNM Copies to: Vazquez Montilla MD MR #: [id number] Status: DEP REF Collected: 12/19/22 Location: [facility] Received: 12/20/22 Interpretation Satisfactory for evaluation. Mild inflammation. Negative for intraepithelial lesion or malignancy. HPV mRNA E6/E7: NOT DETECTED This assay detects E6/E7 viral messenger RNA (mRNA) from 14 high-risk HPV types (16, 18, 31, 33, 35, 39, 45, 51, 52, 56, 58, 59, 66, 68) HPV testing performed by [facility], [place], [place]. See reference laboratory pion of the EMR for entire report. Clinical Information LMP: 2 years ago Previous PAP test: 2019, WNL Material Received ThinPrep-Cervical Copies To Vazquez Montilla MD [address] [facility]. [place], [place] [id number] Anna Salmon [address] Lee [address] [place] [address] [phone] Electronically Signed By: APPLE Blankenship (ASCP) 12/30/22 1333 The Pap Test is a screening procedure with the inherent possibility of both false negative and false positive results. Results should be interpreted in the context of historic and current clinical findings. Reliability of the Pap Test is enhanced by performing the test on a regular repetitive basis. Patient: Velma Ordonez Age/Sex: 27/F MR#: [id number] Page 1 of 1 Assessment & Plan Assessment & Plan (1) Type 2 diabetes mellitus: Code(s): E11.9 - Type 2 diabetes mellitus without complications Category: Medical (2) Hirsutism: Code(s): L68.0 - Hirsutism Category: Medical (3) Anovulatory amenorrhea: Comment: Discussed concerns for hyperplasia etc. may very well need endometrial biopsy. Discussed possible EMB and future Mirena use for endometrial protection. Also possibly physically challenging it was who is difficult to fully visualize her cervix today. 05/09/2023 see note... Code(s): N91.2 - Amenorrhea, unspecified Category: Medical (4) Pap smear for cervical cancer screening: Comment: 12/19/2022 Pap is negative with negative HPV. Code(s): Z12.4 - Encounter for screening for malignant neoplasm of cervix Category: Medical (5) PCOS (polycystic ovarian syndrome): Code(s): E28.2 - Polycystic ovarian syndrome Category: Medical Plan Addressed all of the previous issues and how she is doing with her health overall addressed the OCPs. She is happy and feeling good getting her. On a regular basis and well the Provera bleed was long and heavy and lasted 2 weeks she now feels better getting a regula period, And wants to continue on the OCPs and as she has not getting any negative side effects we will continue them for now she did have some elevated blood pressures recently but she is within normal limits today here so we will continue I did tell her that at any point if she continued with high blood pressure that would be reason to discontinue the pills and another plan would need to be considered. She is happy that she lost the 5 lb that she did lose of interest she appeared to have gained from 56-61 in BMI of note her height had been changed from 5 ft 4 ,to -5 foot 1 in the chart. I remeasured the patient today to ascertain where she is and height so as to better calculate her BMI she is infact 5 ft 2, yielding a BMI of 59. 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 In the meantime she does have appointments coming up with endocrinology and she is right on top of that as well as primary care appointments. I applauded her for all of her efforts and did review dietary challenges that can negate her good efforts and encouraged her as much as possible to focus on protein and vegetables and avoid carbs when possible she is still working on improving all of these but is feeling good about her progress she said she has not had soda in a month. Encouraged her to be open to bariatric surgery as sometimes when the weight becomes this much it can be a challenge to use it without extra methodologies in the meantime she is really working on her own program proud of it. At the end of the visit she did show me a rash that was under her pannus that she is seen improvements with and she is managing it with keeping it very clean and dry and using deodorant there as well. I am continuing her OCP prescription for the next year. I did tell her that any time a high blood pressure would be noted that might be an indication to stop the control pills and other methodologies might need to be considered. RTC 1 year. Medications: Changed From desog-e.estradiol/e.estradiol 0.15-0.02 mgx21 /0.01 mg x 5 start when withdrawal bleed from provera is slowing down 1 tab PO DAILY 84 tabs 1RF To desog-e.estradiol/e.estradiol 0.15-0.02 mgx21 /0.01 mg x 5 1 tab PO DAILY 84 tabs 3RF Coding Level of Care Code Est Pt Level 3 (56057) Diagnoses Type 2 diabetes mellitus E11.9 Hirsutism L68.0 Anovulatory amenorrhea N91.2 Pap smear for cervical cancer screening Z12.4 PCOS (polycystic ovarian syndrome) E28.2
[2023-08-12 14:50] VITALS: BMI 59.1
== END 2023-08-12 15:45 | disposition home or self-care (01) ==
PROVIDERS: PCP Family Medicine; Visit Provider Advanced Practice Midwife
DX: N91.2 Amenorrhea, unspecified (principal); L68.0 Hirsutism; E28.2 Polycystic ovarian syndrome; E11.9 Type 2 diabetes mellitus without complications
CPT/HCPCS: 99213

== ENCOUNTER → 2023-08-12 13:36 | Outpatient (BNVA) | payer OTHER, SELFPAY | PROVIDERS: PCP Family Medicine; Visit Provider Advanced Practice Midwife | DX: N91.2 Amenorrhea, unspecified (principal); L68.0 Hirsutism; E28.2 Polycystic ovarian syndrome; E11.9 Type 2 diabetes mellitus without complications | CPT/HCPCS: 99212 ==

== ENCOUNTER 2023-08-19 14:16 | Outpatient (AMB) | payer OTHER, SELFPAY ==
--- NOTE | 2023-08-19 14:17 | A.OFFVIS_ITS ---
Vital Signs 08/19/23 14:22 Height 5 ft 2 in Weight 324 lb 8.327 oz BMI 59.3 BP 102/80 Blood Pressure Location Lt brachial Position Sitting Pulse 62 Pulse Source Pulse Oximeter Intake Visit Reasons: Other disorders of pituitary gland-lvm Intake Note: Patient present today for disorders of pituitary gland follow up visit Drying Room Supervisor Required: No Accompanied by: Self / Same As Patient Allergies bee pollen [BEE STINGS] Allergy (Unknown, Verified 08/19/23 14:24) ANAPHYLAXIS bee sting Allergy (Unknown, Uncoded 08/19/23 14:24) anaphylaxis Medication List - Last Reconciled 08/19/23 by Mauro Champion MD albuterol sulfate 90 mcg/actuation 2 puffs inhalation Q4-6H PRN desog-e.estradiol/e.estradiol 0.15-0.02 mgx21 /0.01 mg x 5 1 tab PO DAILY dulaglutide (Trulicity) 0.75 mg (0.5 mL) subcut QWEEK epinephrine (EpiPen) 0.3 mg (0.3 mL) IM Q4H PRN ibuprofen 600 mg PO Q8H sertraline 50 mg PO DAILY 30 days HPI Comments Details: 27 YO Female with PMHx PCOS who is seen in consultation at the request of her PCP for PCOS. Dxed at age 12. Menarche was age 10. Menses have been irregula since age 12 . Has 1 menses /yr. Took BCP for 1 yr age13 off 7 yrs OCP use: as above . Seeing transport aircrewman September 06 Metformin use: cannot tolerate due to GI Weight gain: No . but difficulty losing wt Hirsutism/hyperandrogenism: under chin -shaves has acne on face Not Trying to conceive/ No - does not have children Ovarian U/S: yes T2DM or acanthosis: No Lipids: [] BP: [] Labs: Prior workup showed normal testosterone, DHEA-S, 17 hydroxy progesterone Could not tolerate metformin . On Trulicity 0.75 mg Q weekly. More recently found to have empty sella syndrome on CT scan of the head. Menses are nl on BCP PFSH Medical History PCOS (polycystic ovarian syndrome) Surgical History No pertinent past surgical history Family History Mother Scarlet fever Maternal Uncle Substance use disorder Maternal Grandmother Ovarian cancer Other Diabetes Social History Household Members: Family Both parents involved: Yes Caregiver staying overnight: No Housing: Apartment Are you a primary date night caregiver to a significant other at home: No Do you presently have visiting nurse or other home services: No 75 years or older and lives alone: No Alcohol intake: current Alcohol intake frequency: holidays/special occasions on ly Patient Tobacco Use Status: Former Tobacco user e-Cigarette/Vaping Use: Never Used Second Hand Smoke Exposure: No service: No Current occupational status: employed Current occupation: [employer] at [employer]. Cognitive needs: No Hearing needs: No Vision needs: No Female Reproductive History Menstrual Age of Menarche: 9 Assessment & Plan Assessment & Plan (1) Empty sella turcica: Comment: CT SCAN 06/2023 Empty sella turcica. Clinical correlation for signs of idiopathic intracranial hypertension is suggested. Referred to [facility] [place]o Code(s): E23.6 - Other disorders of pituitary gland Category: Medical Plan: This is a 27-year-old female with a history of polycystic ovarian syndrome found to have empty sella syndrome on CT scan. Most cases of empty sella syndrome are incidental findings without any biochemically significance. Rule out adrenal insufficiency and hypothyroidism as well as hyperprolactinemia Will check a.m. cortisol, TSH, free T4 and prolactin as well as IGF-1 a basic metabolic panel. Will also obtain MRI of the pituitary with dedicated look at the pituitary to rule out pituitary mass. (2) PCOS (polycystic ovarian syndrome): Code(s): E28.2 - Polycystic ovarian syndrome Category: Medical Plan: Currently on control pill and having normal menses but hirsutism still bothersome Will start spironolactone 75 mg q.d. and recheck basic metabolic panel in 10 days' time. Patient was told to take the spironolactone with food until not to get on the spironolactone and dangers to the fetus of getting on the spironolactone Orders: Orders Prolactin 10 Days E23.6 - Other disorders of pituitary gland Basic Metabolic Panel 10 Days E23.6 - Other disorders of pituitary gland MR head/brain wo/w con Today E23.6 - Other disorders of pituitary gland Cortisol Random 10 Days E23.6 - Other disorders of pituitary gland Free T4 (Free Thyroxine) 10 Days E23.6 - Other disorders of pituitary gland Thyroid Stimulating Hormone 10 Days E23.6 - Other disorders of pituitary gland IGF-1 (Somatomedin C) 10 Days E23.6 - Other disorders of pituitary gland Medications: New spironolactone (Aldactone) 75 mg (1.5 x 50 mg) PO QAM 45 tabs 5RF Refilled dulaglutide (Trulicity) 0.75 mg (0.5 mL) subcut QWEEK 2 mL 4RF Coding Level of Care Code Est Pt Level 3 (98136) Diagnoses Empty sella turcica E23.6 PCOS (polycystic ovarian syndrome) E28.2
[2023-08-19 14:22] VITALS: BP 102/80; PULSE 62; BMI 59.3
== END 2023-08-19 14:42 | disposition home or self-care (01) ==
PROVIDERS: PCP Family Medicine; Visit Provider Internal Medicine Endocrinology, Diabetes & Metabolism
DX: E23.6 Other disorders of pituitary gland (principal); E28.2 Polycystic ovarian syndrome
CPT/HCPCS: 99213

== ENCOUNTER → 2023-08-19 14:16 | Outpatient (BNVA) | payer OTHER, SELFPAY | PROVIDERS: PCP Family Medicine; Visit Provider Internal Medicine Endocrinology, Diabetes & Metabolism | DX: E23.6 Other disorders of pituitary gland (principal); E28.2 Polycystic ovarian syndrome | CPT/HCPCS: 99212 ==

== ENCOUNTER 2023-11-03 16:44 | Outpatient (AMB) | payer OTHER, SELFPAY ==
--- NOTE | 2023-11-03 16:45 | A.OFFVIS_ITS ---
Vital Signs 11/03/23 16:46 Height 5 ft 2 in Weight 319 lb 10.724 oz BMI 58.5 BP 122/84 Blood Pressure Location Rt brachial Position Sitting Pulse 109 H Pulse Source Pulse Oximeter Intake Visit Reasons: PCOS-no answer Intake Note: Patient present today for PCOS follow up visit. Allergies bee pollen [BEE STINGS] Allergy (Unknown, Verified 08/19/23 14:24) ANAPHYLAXIS bee sting Allergy (Unknown, Uncoded 08/19/23 14:24) anaphylaxis Medication List - Last Reconciled 11/03/23 by Mauro Champion MD albuterol sulfate 90 mcg/actuation 2 puffs inhalation Q4-6H PRN desog-e.estradiol/e.estradiol 0.15-0.02 mgx21 /0.01 mg x 5 1 tab PO DAILY dulaglutide (Trulicity) 0.75 mg (0.5 mL) subcut QWEEK epinephrine (EpiPen) 0.3 mg (0.3 mL) IM Q4H PRN ibuprofen 600 mg PO Q8H sertraline 50 mg PO DAILY 30 days spironolactone (Aldactone) 75 mg (1.5 x 50 mg) PO QAM HPI Comments Details: 27 YO Female with PMHx PCOS who is seen in consultation at the request of her PCP for PCOS. Dxed at age 12. Menarche was age 10. Menses have been irregula since age 12 . Has 1 menses /yr. Took BCP for 1 yr age13 off 7 yrs OCP use: as above . Seeing reinspector September 06 Metformin use: cannot tolerate due to GI Weight gain: No . but difficulty losing wt Hirsutism/hyperandrogenism: under chin -shaves has acne on face Not Trying to conceive/ No - does not have children Ovarian U/S: yes T2DM or acanthosis: No Lipids: [] BP: [] Labs: Prior workup showed normal testosterone, DHEA-S, 17 hydroxy progesterone Could not tolerate metformin . On Trulicity 0.75 mg Q weekly. More recently found to have empty sella syndrome on CT scan of the head. Menses are nl on BCP PFSH Medical History PCOS (polycystic ovarian syndrome) Surgical History No pertinent past surgical history Family History Mother Scarlet fever Maternal Uncle Substance use disorder Maternal Grandmother Ovarian cancer Other Diabetes Social History Household Members: Family Both parents involved: Yes Caregiver staying overnight: No Housing: Apartment Are you a primary skin care instructor to a significant other at home: No Do you presently have visiting nurse or other home services: No 75 years or older and lives alone: No Alcohol intake: current Alcohol intake frequency: holidays/special occasions only Patient Tobacco Use Status: Former Tobacco user e-Cigarette/Vaping Use: Never Used Second Hand Smoke Exposure: No service: No Current occupational status: employed 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 Cognitive needs: No Hearing needs: No Vision needs: No Female Reproductive History Menstrual Age of Menarche: 9 Physical Exam Vital Signs: Last Vital Signs Pulse 109 H 11/03/23 16:46 BP 122/84 11/03/23 16:46 BMI result Body Mass Index 58.5 Assessment & Plan Assessment & Plan (1) Empty sella turcica: Comment: CT SCAN 06/2023 Empty sella turcica. Clinical correlation for signs of idiopathic intracranial hypertension is suggested. Referred to [facility] [place] Endo Code(s): E23.6 - Other disorders of pituitary gland Category: Medical Plan: This is a 27-year-old female with a history of polycystic ovarian syndrome found to have empty sella syndrome on CT scan. Most cases of empty sella syndrome are incidental findings without any biochemically significance. Rule out adrenal insufficiency and hypothyroidism as well as hyperprolactinemia. Lab orders were placed with patient did not do blood work as of yet Will check a.m. cortisol, TSH, free T4 and prolactin as well as IGF-1 a basic metabolic panel. Will also obtain MRI of the pituitary report with dedicated look at the pituitary to rule out pituitary mass done at [facility] . (2) PCOS (polycystic ovarian syndrome): Code(s): E28.2 - Polycystic ovarian syndrome Category: Medical Plan: Currently on control pill and having normal menses but hirsutism much better Will continue spironolactone 75 mg q.d. and recheck basic metabolic panel Patient was told to take the spironolactone with food until not to get on the spironolactone and dangers to the fetus of getting on the spironolactone Coding Level of Care Code Est Pt Level 3 (34302) Diagnoses Empty sella turcica E23.6 PCOS (polycystic ovarian syndrome) E28.2
[2023-11-03 16:46] VITALS: BP 122/84; PULSE 109; BMI 58.5
== END 2023-11-03 17:02 | disposition home or self-care (01) ==
PROVIDERS: PCP Family Medicine; Visit Provider Internal Medicine Endocrinology, Diabetes & Metabolism
DX: E23.6 Other disorders of pituitary gland (principal); E28.2 Polycystic ovarian syndrome
CPT/HCPCS: 99213

== ENCOUNTER → 2023-11-03 16:44 | Outpatient (BNVA) | payer OTHER, SELFPAY | PROVIDERS: PCP Family Medicine; Visit Provider Internal Medicine Endocrinology, Diabetes & Metabolism | DX: E23.6 Other disorders of pituitary gland (principal); E28.2 Polycystic ovarian syndrome | CPT/HCPCS: 99212 ==

== ENCOUNTER 2023-12-25 09:02 | Outpatient (REF) | payer OTHER, SELFPAY ==
[2023-12-25 13:56] LABS: Anion Gap 14 (12-20); Blood Urea Nitrogen 9 mg/dL (9-16); Calcium 9.3 mg/dL (8.4-10.2); Carbon Dioxide 18 mmol/L (22-29); Chloride 107 mmol/L (96-108); Estimated Glomerular Filt Rate > 60; Glucose Random 340 mg/dL (60-115); Sodium 135 mmol/L (135-145)
[2023-12-25 14:01] LABS: Free T4 (Free Thyroxine) 0.88 ng/dL (0.71-1.85); Thyroid Stimulating Hormone 1.23 uIU/mL (0.32-4.0)
[2023-12-25 14:03] LABS: Cortisol Random 11.7 ug/dL
[2023-12-28 05:39] LABS: TS Negative Control Passed; TS Panel A 0; TS Panel B 0; TS Positive Control Passed; TSpotTB Negative (Negative)
[2023-12-30 15:24] LABS: IGF-1 (Somatomedin C) 76 ng/mL (63-373); IGF-1 Z Score (Female) -1.5 SD (-2.0 - +2.0)
== END 2023-12-25 09:03 | disposition home or self-care (01) ==
LOC: HO.HMGCLDS 09:02
PROVIDERS: Internal Medicine Endocrinology, Diabetes & Metabolism; PCP Family Medicine; Visit Provider Family Medicine
DX: E23.6 Other disorders of pituitary gland (principal); Z11.1 Encounter for screening for respiratory tuberculosis
CPT/HCPCS: 36415; 80048; 82533; 84146; 84305; 84439; 84443; 86481

== ENCOUNTER 2024-01-13 16:13 | Outpatient (AMB) | payer OTHER, SELFPAY ==
--- NOTE | 2024-01-13 16:14 | A.OFFVIS_ITS ---
Vital Signs 01/13/24 16:17 Height 5 ft 2 in Weight 317 lb 7.45 oz BMI 58.1 BP 110/70 Blood Pressure Location Rt brachial Position Sitting Pulse 119 H Pulse Source Pulse Oximeter Intake Visit Reasons: PCOS-lvm Intake Note: Patient present today for PCOS follow up visit. Consulting It Architect Required: No Accompanied by: Self / Same As Patient Allergies bee pollen [BEE STINGS] Allergy (Unknown, Verified 01/13/24 16:15) ANAPHYLAXIS bee sting Allergy (Unknown, Uncoded 01/13/24 16:15) anaphylaxis Medication List - Last Reconciled 01/13/24 by Mauro Champion MD albuterol sulfate 90 mcg/actuation 2 puffs inhalation Q4-6H PRN desog-e.estradiol/e.estradiol 0.15-0.02 mgx21 /0.01 mg x 5 1 tab PO DAILY dulaglutide (Trulicity) 0.75 mg (0.5 mL) subcut QWEEK epinephrine (EpiPen) 0.3 mg (0.3 mL) IM Q4H PRN ibuprofen 600 mg PO Q8H sertraline 50 mg PO DAILY 30 days spironolactone (Aldactone) 75 mg (1.5 x 50 mg) PO QAM HPI Comments Details: 27 YO Female with PMHx PCOS who is seen in consultation at the request of her PCP for PCOS. Dxed at age 12. Menarche was age 10. Menses have been irregula since age 12 . Has 1 menses /yr. Took BCP for 1 yr age13 off 7 yrs OCP use: as above . Seeing cell room supervisor September 06 Metformin use: cannot tolerate due to GI Weight gain: No . but difficulty losing wt Hirsutism/hyperandrogenism: under chin -shaves has acne on face Not Trying to conceive/ No - does not have children Ovarian U/S: yes T2DM or acanthosis: No Lipids: [] BP: [] Labs: Prior workup showed normal testosterone, DHEA-S, 17 hydroxy progesterone Could not tolerate metformin . On Trulicity 0.75 mg Q weekly. More recently found to have empty sella syndrome on CT scan of the head. Menses are nl on BCP . Workup was negative for pituitary abnormalities. No plans for PFSH Medical History PCOS (polycystic ovarian syndrome) Surgical History No pertinent past surgical history Family History Mother Scarlet fever Maternal Uncle Substance use disorder Maternal Grandmother Ovarian cancer Other Diabetes Social History Household Members: Family Both parents involved: Yes Caregiver staying overnight: No Housing: Apartment Are you a primary direct care specialist to a significant other at home: No Do you presently have visiting nurse or other home services: No 75 years or older and lives alone: No Alcohol intake: current Alcohol intake frequency: holidays/special occasions only Patient Tobacco Use Status: Former Tobacco user e-Cigarette/Vaping Use: Never Used Second Hand Smoke Exposure: No service: No Current occupational status: employed 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 Cognitive needs: No Hearing needs: No Vision needs: No Female Reproductive History Menstrual Age of Menarche: 9 Physical Exam Vital Signs: Last Vital Signs Pulse 119 H 01/13/24 16:17 BP 110/70 01/13/24 16:17 BMI result Body Mass Index 58.1 Assessment & Plan Assessment & Plan (1) Empty sella turcica: Comment: CT SCAN 06/2023 Empty sella turcica. Clinical correlation for signs of idiopathic intracranial hypertension is suggested. [place] [facility] [place] Code(s): E23.6 - Other disorders of pituitary gland Category: Medical Plan: This is a 27-year-old female with a history of polycystic ovarian syndrome found to have empty sella syndrome on CT scan. Most cases of empty sella syndrome are incidental findings without any biochemically significance. No pituitary will hormonal abnormalities were found There is no need for any further endocrine workup regarding the empty sella. Patient returned to the care of her primary care provider (2) PCOS (polycystic ovarian syndrome): Code(s): E28.2 - Polycystic ovarian syndrome Category: Medical Plan: Currently on control pill and having normal menses but hirsutism much better Will continue spironolactone 75 mg q.d. and recheck basic metabolic panel Patient was told to take the spironolactone with food until not to get on the spironolactone and dangers to the fetus of getting on the spironolactone. At this point, patient returned to the care of her primary care provider and back to endocrinology as needed Coding Level of Care Code Est Pt Level 3 (73758) Diagnoses Empty sella turcica E23.6 PCOS (polycystic ovarian syndrome) E28.2
[2024-01-13 16:17] VITALS: BP 110/70; PULSE 119; BMI 58.1
== END 2024-01-13 16:30 | disposition home or self-care (01) ==
PROVIDERS: PCP Family Medicine; Visit Provider Internal Medicine Endocrinology, Diabetes & Metabolism
DX: E23.6 Other disorders of pituitary gland (principal); E28.2 Polycystic ovarian syndrome
CPT/HCPCS: 99213

== ENCOUNTER → 2024-01-13 16:13 | Outpatient (BNVA) | payer OTHER, SELFPAY | PROVIDERS: PCP Family Medicine; Visit Provider Internal Medicine Endocrinology, Diabetes & Metabolism | DX: E23.6 Other disorders of pituitary gland (principal); E28.2 Polycystic ovarian syndrome | CPT/HCPCS: 99212 ==

== ENCOUNTER 2024-02-05 14:26 | Outpatient (AMB) | payer OTHER, SELFPAY ==
[2024-02-05 14:47] VITALS: BP 130/80; PULSE 105; RESP 16; TEMP 37; O2SAT 98; BMI 58.6
--- NOTE | 2024-02-05 14:47 | A.OFFPC_ITS ---
Vital Signs 02/05/24 14:47 Height 5 ft 2 in Weight 320 lb 8 oz BMI 58.6 BP 130/80 Blood Pressure Location Rt brachial Position Sitting Respiration 16 Pulse 105 H Pulse Source Pulse Oximeter Temp 98.6 F Temp Source Oral Pulse Oximetry (%) 98 Oxygen Delivery Method Room Air Intake Visit Reasons: Constant headaches follow up Intake Note: abd rash and odor Allergies bee pollen [BEE STINGS] Allergy (Unknown, Verified 02/05/24 14:53) ANAPHYLAXIS bee sting Allergy (Unknown, Uncoded 01/13/24 16:15) anaphylaxis Tobacco use date assessed: 06/19/23 Dental Screening Dental Screen Date: 06/19/23 HPI Constant headaches follow up HPI Details 28 y/o female presents to f/u chronic co nditions. Has complaints of an ongoing headache. MRI?acquired?but?not?read?yet. Patient?has?complaint?of?rash?on?abdomen Also?followed?by?endocrinology?and?they?have?started?her?on?Trulicity. BS was greater than 300 when she checked last [facility] Medical History PCOS (polycystic ovarian syndrome) Surgical History No pertinent past surgical history Family History Mother Scarlet fever Maternal Uncle Substance use disorder Maternal Grandmother Ovarian cancer Other Diabetes Social History Household Members: Family Both parents involved: Yes Caregiver staying overnight: No Housing: Apartment Are you a primary home health care case manager to a significant other at home: No Do you presently have visiting nurse or other home services: No 75 years or older and lives alone: No Alcohol intake: current Alcohol intake frequency: holidays/special occasions only Patient Tobacco Use Status: Former Tobacco user e-Cigarette/Vaping Use: Never Used Second Hand Smoke Exposure: No service: No Current occupational status: employed 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 Cognitive needs: No Hearing needs: No Vision needs: No Female Reproductive History Menstrual Age of Menarche: 9 Questionnaire PHQ-9 Over the last 2 weeks, how often have you been bothered by any of the following problems? 1. Little interest or pleasure in doing things: more than half the days 2. Feeling down, depressed, or hopeless: not at all 3. Trouble falling or staying asleep, or sleeping too much: more than half the days 4. Feeling tired or having little energy: more than half the days 5. Poor appetite or overeating: several days 6. Feeling bad about yourself - or that you are a failure or have let yourself or your family down: not at all 7. Trouble concentrating on things, such as reading the newspaper or watching television: not at all 8. Moving or speaking so slowly that other people could have noticed. Or the opposite - being so fidgety or restless that you have been moving around a lot more than usual: not at all 9. Thoughts that you would be better off or of hurting yourself in some way: not at all Total score: 7 Source: Developed by Drs. Mauro Callaway, Justine Krishnan, Christiano June and colleagues, with an educational emelia from [employer]. Thrive Questionnaire Date Thrive assessed: 06/19/23 I am a: Patient What is your living situation today?: I have a steady place to live Within the past 12 months, did the food you bought not last and you didn't have the money to get more?: I choose not to answer this question Within the past 12 months, did you worry whether your food would run out before you got money to buy more?: I choose not to answer this question Do you have trouble paying for medicines?: I choose not to answer this question Do you have trouble getting transportation to medical appointments?: No Do you have trouble paying your heating and electricity bill?: I choose not to answer this question Do you have trouble taking care of your child, family member or friend?: No Do you have trouble with day-to-day activities such as bathing, preparing meals, shopping, managing finances, etc.?: No Are you currently unemployed and looking for a job?: Yes Are you interested in more education?: No Please select the resources that you would like help with: None Currently or been in a relationship where the following occur: No concerns reported THRIVE Score: 0 AUDIT C Alcohol Use Questionnaire (AUDIT-C) 1. How often do you have a drink containing alcohol?: Never Total Score: 0 ALIA-7 AMB Questionnaire ALIA-7 Date ALIA - 7 assessed: 06/19/23 Feeling nervous, anxious, or on edge: 1 = Several days Not being able to stop or control worryin = Not at all Worrying too much about different things: 0 = Not at all Trouble relaxin = Several days Being so restless that it is hard to sit still: 1 = Several days Becoming easily annoyed or irritable: 1 = Several days Feeling afraid as if something awful might happen: 0 = Not at all Total ALIA-7 score (0-4 normal; 5-9 mild; 10-14 moderate; 15-21 severe): 4 Source: Developed by Drs. Mauro Callaway, Justine Krishnan, Christiano June and colleagues, with an educational emelia from [employer]. Review of Systems Const Denies chills, Denies fatigue, Denies fever(s), Denies headache(s) and Denies weakness ENT Denies dizziness and Denies headache(s) Card Denies dyspnea Resp Denies cough, Denies dyspnea, Denies wheezing and Denies other (shortness of breath) Musc Denies numbness and Denies tingling Skin/Breast Reports rash Neuro Denies dizziness, Denies headache(s), Denies numbness, Denies tingling and Denies weakness Psych Denies anxiety and Denies depression Endo Denies fatigue Aller/Immun Denies wheezing Physical exam (Primary Care) Vital Signs: Last Vital Signs Temp 98.6 F 02/05/24 14:47 Pulse 105 H 02/05/24 14:47 Resp 16 02/05/24 14:47 BP 130/80 02/05/24 14:47 Pulse Ox 98 02/05/24 14:47 Oxygen Delivery Method Room Air 02/05/24 14:47 BMI result Body Mass Index 58.6 Tobacco/Smoking Status: Tobacco use Status Tobacco use date assessed 06/19/23 02/05/24 14:53 Patient Tobacco Use Status Former Tobacco user 02/05/24 14:53 e-Cigarette/Vaping Use Never Used 02/05/24 14:53 PHQ-9: PHQ-9 Score PHQ-9: Total score 7 02/05/24 14:53 Thrive Assessment: Date of Thrive Assessment Date Thrive assessed 06/19/23 02/05/24 14:53 Currently or been in a relationship where the following occur: No concerns reported Const General: well developed; No acute distress Nutritional Appearance: well nourished Orientation/consciousness: patient oriented x3 HENCT Head: Yes normocephalic and Yes atraumatic Eyes General: appearance normal, both eyes and all related structures Pupils: Equal, round and reactive pupils present EOM: EOMs intact bilaterally Resp Effort & Inspection: normal respiratory effort Neuro General: patient oriented x3 and gait normal Cranial nerves: Yes Equal, round and reactive pupils present Psych Affect: normal affect Coding Level of Care Code Est Pt Level 3 (38550) Diagnoses Headache R51.9 Rash R21 Assessment & Plan Assessment & Plan (1) Headache: Code(s): R51.9 - Headache, unspecified Category: Medical Plan: MRI?is?still?pending.??Asked?office?to?check?on?status?and?expedite?reading Will?follow-up?on?this?in?about?3?weeks?or?sooner?if?indicated?by?results Patient?notes?however?that?headaches?have?improved?and?are?less?frequent. (2) Rash: Code(s): R21 - Rash and other nonspecific skin eruption Category: Medical Plan: Patient?has?a?yeast?infection?under?pannus?of?abdomen Advise?she?avoid?excess?moisture?and?wash?and?change?clothes?twice?a?day Will?give?her?a?script?for?clotrimazole?cream Also?increasing?dulaglutide?to?help?improve?her?blood?sugars?which?are?still?hig h. Medications: New clotrimazole 1% 1 appl topical BID 2 weeks 60 grams 1RF Changed From dulaglutide (Trulicity) 0.75 mg (0.5 mL) subcut QWEEK 2 mL 4RF To dulaglutide 1.5 mg (0.5 mL) subcut QWEEK 28 days 2 mL 4RF From spironolactone (Aldactone) 75 mg (1.5 x 50 mg) PO QAM 45 tabs 5RF To spironolactone (Aldactone) 75 mg (1.5 x 50 mg) PO QAM 30 days 45 tabs 5RF
== END 2024-02-05 15:04 | disposition home or self-care (01) ==
LOC: HO.HMCFM 14:26
PROVIDERS: PCP Family Medicine; Visit Provider Family Medicine
DX: R51.9 Headache, unspecified (principal); R21 Rash and other nonspecific skin eruption

== ENCOUNTER → 2024-02-05 14:26 | Outpatient (BNVA) | payer OTHER, SELFPAY | PROVIDERS: PCP Family Medicine; Visit Provider Family Medicine | DX: R51.9 Headache, unspecified (principal); R21 Rash and other nonspecific skin eruption | CPT/HCPCS: 99212 ==

== ENCOUNTER → 2024-02-20 11:05 | Outpatient (AMB) | payer OTHER, SELFPAY ==
--- NOTE | 2024-02-20 11:02 | MHC.PC.OV ---
Intake Visit Reasons: f/u headache Allergies bee pollen [BEE STINGS] Allergy (Unknown, Verified 02/20/24 11:02) ANAPHYLAXIS bee sting Allergy (Unknown, Uncoded 01/13/24 16:15) anaphylaxis Tobacco use date assessed: 06/19/23 Dental Screening Dental Screen Date: 06/19/23 HPI f/u headache HPI Details 28 y/o female presents to f/u headaches. Following up on MRI. CT scan showed empty sella turcica. MRI showed no tumor, but pt did note vision changes L eye. She had lost her vision for a minute or two but had gotten back to normal. Has not happened since. She notes her mother had an aneurysm a couple weeks ago. [facility] Medical History PCOS (polycystic ovarian syndrome) Surgical History No pertinent past surgical history Family History Mother Scarlet fever Maternal Uncle Substance use disorder Maternal Grandmother Ovarian cancer Other Diabetes Social History Household Members: Family Both parents involved: Yes Caregiver staying overnight: No Housing: Apartment Are you a primary hospice care consultant to a significant other at home: No Do you presently have visiting nurse or other home services: No 75 years or older and lives alone: No Alcohol intake: current Alcohol intake frequency: holidays/special occasions only Patient Tobacco Use Status: Former Tobacco user e-Cigarette/Vaping Use: Never Used Second Hand Smoke Exposure: No service: No Current occupational status: employed 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 Cognitive needs: No Hearing needs: No Vision needs: No Female Reproductive History Menstrual Age of Menarche: 9 Questionnaire Thrive Questionnaire Date Thrive assessed: 02/05/24 I am a: Patient What is your living situation today?: I have a steady place to live Within the past 12 months, did the food you bought not last and you didn't have the money to get more?: I choose not to answer this question Within the past 12 months, did you worry whether your food would run out before you got money to buy more?: I choose not to answer this question Do you have trouble paying for medicines?: I choose not to answer this question Do you have trouble getting transportation to medical appointments?: No Do you have trouble paying your heating and electricity bill?: I choose not to answer this question Do you have trouble taking care of your child, family member or friend?: No Do you have trouble with day-to-day activities such as bathing, preparing meals, shopping, managing finances, etc.?: No Are you currently unemployed and looking for a job?: Yes Are you interested in more education?: No Please select the resources that you would like help with: None Currently or been in a relationship where the following occur: No concerns reported THRIVE Score: 0 ALIA-7 AMB Questionnaire ALIA-7 Date ALIA - 7 assessed: 06/19/23 Source: Developed by Drs. Mauro Callaway, Justine Krishnan, Christiano June and colleagues, with an educational emelia from [employer]. Review of Systems Const Denies chills, Denies fatigue, Denies fever(s), Denies headache(s) and Denies weakness ENT Denies dizziness and Denies headache(s) Card Denies dyspnea Resp Denies cough, Denies dyspnea, Denies wheezing and Denies other (shortness of breath) Musc Denies numbness and Denies tingling Neuro Denies dizziness, Denies headache(s), Denies numbness, Denies tingling and Denies weakness Psych Denies anxiety and Denies depression Endo Denies fatigue Aller/Immun Denies wheezing Physical exam (Primary Care) Tobacco/Smoking Status: Tobacco use Status Tobacco use date assessed 06/19/23 02/20/24 11:04 Patient Tobacco Use Status Former Tobacco user 02/20/24 11:04 e-Cigarette/Vaping Use Never Used 02/20/24 11:04 Thrive Assessment: Date of Thrive Assessment Date Thrive assessed 02/05/24 02/20/24 11:04 Currently or been in a relationship where the following occur: No concerns reported Telehealth Telehealth Telehealth Platform: Telephone Location of provider rendering services: practice address Location of patient: address on file Patient Identification confirmed using: Name, : Yes Telehealth method: voice only Patient verbally consented to treatment: Yes Patient verbally consented to billing insurance company: Yes Patient informed of any privacy concerns related to visit: Yes Minutes spent on Phone/Video with Pt.: 6 Coding Level of Care Code Tele Est Pt Level 2 (19307) Diagnoses Empty sella turcica E23.6 Headache R51.9 Vision changes H53.9 Assessment & Plan Assessment & Plan (1) Empty sella turcica: Comment: CT SCAN 06/2023 Empty sella turcica. Clinical correlation for signs of idiopathic intracranial hypertension is suggested. Referred to [facility] Endo Code(s): E23.6 - Other disorders of pituitary gland Category: Medical Plan: MRI?shows?partially?empty?sella?turcica Patient?has?also?headaches?and?vision?changes Concern?for?increased?intracranial?pressure?and?pseudotumor?cerebri Referred?to?neurology Referred?to?ophthalmology (2) Headache: Code(s): R51.9 - Headache, unspecified Category: Medical Plan: As?above (3) Vision changes: Code(s): H53.9 - Unspecified visual disturbance Category: Medical Plan: Patient?had?ophthalmology?appointment?after?her?CT?scan?in?June?but?she?does?not?recall?when.??Will?request?most?recent?note Referring?her?back?Neurology Orders: Referrals Neurology Referral E23.6 - Other disorders of pituitary gland, H53.9 - Unspecified visual disturbance, R51.9 - Headache, unspecified Ophthalmology Referral E23.6 - Other disorders of pituitary gland, H53.9 - Unspecified visual disturbance, R51.9 - Headache, unspecified
== END ==
LOC: HO.HMCFM 11:05
PROVIDERS: PCP Family Medicine; Visit Provider Family Medicine
DX: E23.6 Other disorders of pituitary gland (principal); R51.9 Headache, unspecified; H53.9 Unspecified visual disturbance

== ENCOUNTER 2024-05-10 09:04 | Outpatient (AMB) | payer OTHER, SELFPAY ==
[2024-05-10 09:31] VITALS: BP 126/80; PULSE 112; TEMP 37; O2SAT 98
--- NOTE | 2024-05-10 09:31 | MHC.OFFWIV ---
Intake Vital Signs 05/10/24 09:31 Weight 307 lb BP 126/80 Blood Pressure Location Lt brachial Position Sitting Pulse 112 H Pulse Source Pulse Oximeter Temp 98.6 F Temp Source Oral Pulse Oximetry (%) 98 Oxygen Delivery Method Room Air Intake Visit Reasons: EP cough, vomiting, sore throat, chest pain, SOB Intake Note: Patient here for cough, vomiting, chest tightness and SOB that has been present for 4 days. Patient Tobacco Use Status: Former Tobacco user Allergies bee pollen [BEE STINGS] Allergy (Unknown, Verified 05/10/24 09:32) ANAPHYLAXIS bee sting Allergy (Unknown, Uncoded 05/10/24 09:32) anaphylaxis Do you need a note to return to daycare/school/sports/work: No HPI HPI Comments History of Present Illness Details History - The patient is a 28-year-old female presenting with symptoms of an upper respiratory tract infection suggestive of influenza. - Onset of symptoms was approximately four days prior with notable escalation in severity today. - Major symptoms included a sore throat, predominantly right-sided nasal congestion, and a cough severe enough to induce vomiting. - The patient denies fever, nausea, or diarrhea. - Asthma history noted with minor wheezing; the patient possesses and utilizes an inhaler. - Family history includes mother's similar illness and aunt diagnosed with the flu. - COVID-19 testing was self-conducted and resulted negative. - Patient had to leave work early to manage symptoms. Physical Exam General: Cooperative, healthy appearing, comfortable and no acute distress Orientation/consciousness: Patient oriented x3 Limitations: No limitations Head: Normal to inspection Ears: Hearing grossly normal bilaterally, external ears normal and TM's normal bilaterally Nose: Normal external nose present, Normal nares present and No nasal discharge present Face and sinus: Normal facial exam and Yes sinuses nontender Mouth: Normal oral and palatal mucosa present and moist mucous membranes Throat: Yes tonsils normal, Yes uvula midline. Posterior oropharynx erythema Eyes: Appearance normal, both eyes and all related structures Neck: Normal visual inspection Respiratory: Clear to auscultation bilaterally. Normal respiratory effort, able to speak in complete sentences, Actively coughing, no respiratory distress, not tachypneic, no tripod positioning and no use of accessory muscles Cardiovascular: Regular rate and rhythm. Heart rate elevated at 112 bpm. Normal S1 and S2 Skin: No rashes or lesions noted Neuro: Patient oriented x3 Extremities: Normal to inspection and Yes no clubbing, cyanosis or edema PFSH Medical History PCOS (polycystic ovarian syndrome) Surgical History No pertinent past surgical history Family History Mother Scarlet fever Maternal Uncle Substance use disorder Maternal Grandmother Ovarian cancer Other Diabetes Social History Household Members: Family Both parents involved: Yes Caregiver staying overnight: No Housing: Apartment Are you a primary home care and home health aides teacher to a significant other at home: No Do you presently have visiting nurse or other home services: No 75 years or older and lives alone: No Alcohol intake: current Alcohol intake frequency: holidays/special occasions only Patient Tobacco Use Status: Former Tobacco user e-Cigarette/Vaping Use: Never Used Second Hand Smoke Exposure: No service: No Current occupational status: employed 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 Cognitive needs: No Hearing needs: No Vision needs: No Female Reproductive History Menstrual Age of Menarche: 9 Review of Systems Const All systems reviewed & are unremarkable except as noted in HPI and below Physical Exam Vital Signs: Last Vital Signs Temp 98.6 F 05/10/24 09:31 Pulse 116 H 05/10/24 09:31 BP 126/80 05/10/24 09:31 Pulse Ox 98 05/10/24 09:31 Oxygen Delivery Method Room Air 05/10/24 09:31 Assessment & Plan Assessment & Plan (1) Viral lower respiratory tract infection: Code(s): J22 - Unspecified acute lower respiratory infection; B97.89 - Other viral agents as the cause of diseases classified elsewhere Plan: The patient is likely experiencing influenza, with the primary strategy centered on symptomatic management and supportive care. Prednisone is prescribed to manage respiratory symptoms, particularly due to underlying asthma. Tessalon Perles should be taken before bed for cough management, along with optional Benadryl to reduce symptoms further. The patient is advised on the importance of staying hydrated and using Tylenol to manage any fevers. It's essential for her to avoid using cough suppressants during the day to reduce the risk of pneumonia. For work, she should stay out until symptoms free and fever free for 24 hours and once she returns, she should wear a mask initially to prevent potential transmission of the virus. Patient was informed and verbally consented to the use of an ambient scribe for clinic note documentation during this visit Orders: Orders SARS-CoV2/FLU/RSV Today B97.89 - Other viral agents as the cause of diseases classified elsewhere, J22 - Unspecified acute lower respiratory infection Medications: New prednisone 20 mg PO DAILY 5 tabs 0RF benzonatate 200 mg PO TID PRN 14 caps 0RF cough Coding Level of Care Code Est Pt Level 3 (32699) Diagnoses Viral lower respiratory tract infection J22; B97.89
== END 2024-05-10 10:05 | disposition home or self-care (01) ==
PROVIDERS: PCP Family Medicine; Visit Provider Physician Assistant
DX: J22 Unspecified acute lower respiratory infection (principal); B97.89 Other viral agents as the cause of diseases classified elsewhere

== ENCOUNTER 2024-05-10 09:04 | Outpatient (REF) | payer OTHER, SELFPAY ==
[2024-05-10 15:39] LABS: Influenza A PCR NEGATIVE (Negative); Influenza B PCR NEGATIVE (Negative); Resp Syncy Virus RNA Qual PCR POSITIVE (Negative); SARS COV2 PCR INHOUSE NEGATIVE (Negative)
== END 2024-05-10 09:05 | disposition home or self-care (01) ==
LOC: HO.LAB 09:04
PROVIDERS: PCP Family Medicine; Visit Provider Physician Assistant
DX: J22 Unspecified acute lower respiratory infection (principal); B97.89 Other viral agents as the cause of diseases classified elsewhere
CPT/HCPCS: 0241U; 99212

== ENCOUNTER 2024-06-24 15:20 | Outpatient (AMB) | payer OTHER, SELFPAY ==
--- NOTE | 2024-06-24 15:31 | A.OFFPC_ITS ---
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 Required: No Allergies bee pollen [BEE STINGS] Allergy (Unknown, Verified 06/24/24 15:33) ANAPHYLAXIS bee sting Allergy (Unknown, Uncoded 06/24/24 15:33) anaphylaxis Medication List - Last Reconciled 06/24/24 by Elena Roth PA-C albuterol sulfate 90 mcg/actuation 2 puffs inhalation Q4-6H PRN desog-e.estradiol/e.estradiol 0.15-0.02 mgx21 /0.01 mg x 5 1 tab PO DAILY dulaglutide 1.5 mg (0.5 mL) subcut QWEEK 28 days epinephrine (EpiPen) 0.3 mg (0.3 mL) IM Q4H PRN spironolactone (Aldactone) 75 mg (1.5 x 50 mg) PO QAM 30 days topiramate XR 50 mg PO DAILY Tobacco use date assessed: 06/24/24 Dental Screening Dental Screen Date: 06/19/23 HPI Annual Pe HPI Details Patient is a 28-year-old female with a significant past medical history of anxiety with depression, PCOS, obesity, type 2 diabetes, empty sella turcica, hyperlipidemia and sleep apnea presenting today for a physical exam. She normally follows with Dr. Montilla. Endo: She has a history of type 2 diabetes and was followed by endocrinology for this and started on Trulicity. She states that she was always told that she was just a borderline diabetic. Her A1c from a year ago was 6.6. Her blood sugar in the fall was 320. Her A1c today is 7.4. She is on Trulicity 1.5 mg we ekly. She does not check her blood sugars or have testing supplies. She has never had diabetic Education. She does have a family history of type 2 diabetes. -metformin causes severe GI distress and nausea She was also followed by endocrinology for her empty sella turcica and last saw Dr. Champion in the fall. CV: Blood pressure today in the office is 122/75. She is on spironolactone 75 mg daily but states that this is more for the PCOS. She has been off of this for the last few months because she has been unable to get her old business developer to fill this. She is not on any other antihypertensives. She is not on any medication to control her cholesterol. 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 used to follow with [facility] facility planner but has not been seen in awhile and states that she needs help with managing pcos. Breasts: States that she has been having bilateral breast pain specifically around the nipples. It started mostly on the right about a month ago but now it is also on the left and persistent. It is tender to touch but she has not noticed any masses or nipple drainage. No skin changes. Fam hx: found out recently that her maternal aunt has BRCA gene (does not know which one) and her maternal grandmother from ovarain ca and thinks possible fam hx of breast ca on maternal side [facility] Medical History PCOS (polycystic ovarian syndrome) Surgical History No pertinent past surgical history Family History Mother Scarlet fever Maternal Uncle Substance use disorder Maternal Grandmother Ovarian cancer Other Diabetes Social History Household Members: Family Both parents involved: Yes Caregiver staying overnight: No Housing: Apartment Are you a primary home care physical therapist to a significant other at home: No Do you presently have visiting nurse or other home services: No 75 years or older and lives alone: No Alcohol intake: current Alcohol intake frequency: holidays/special occasions only Patient Tobacco Use Status: Current someday Tobacco user (Once a month vaping) e-Cigarette/Vaping Use: Currently Using Second Hand Smoke Exposure: No service: No Current occupational status: employed 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 Cognitive needs: No Hearing needs: No Vision needs: No Female Reproductive History Menstrual Age of Menarche: 9 Questionnaire PHQ-9 Over the last 2 weeks, how often have you been bothered by any of the following problems? 1. Little interest or pleasure in doing things: not at all 2. Feeling down, depressed, or hopeless: not at all 3. Trouble falling or staying asleep, or sleeping too much: not at all 4. Feeling tired or having little energy: not at all 5. Poor appetite or overeating: not at all 6. Feeling bad about yourself - or that you are a failure or have let yourself or your family down: not at all 7. Trouble concentrating on things, such as reading the newspaper or watching television: not at all 8. Moving or speaking so slowly that other people could have noticed. Or the opposite - being so fidgety or restless that you have been moving around a lot more than usual: not at all 9. Thoughts that you would be better off or of hurting yourself in some way: not at all Total score: 0 Depression Screening Interpretation: Negative Depression Screening Done: Yes [id number] - PHQ-9 Billing: Yes Source: Developed by Drs. Mauro Callaway, Justine Krishnan, Christiano June and colleagues, with an educational emelia from [employer]. Thrive Questionnaire Date Thrive assessed: 02/05/24 I am a: Patient What is your living situation today?: I have a steady place to live Within the past 12 months, did the food you bought not last and you didn't have the money to get more?: I choose not to answer this question Within the past 12 months, did you worry whether your food would run out before you got money to buy more?: I choose not to answer this question Do you have trouble paying for medicines?: I choose not to answer this question Do you have trouble getting transportation to medical appointments?: I choose not to answer this question Do you have trouble paying your heating and electricity bill?: I choose not to answer this question Do you have trouble taking care of your child, family member or friend?: I choose not to answer this question Do you have trouble with day-to-day activities such as bathing, preparing meals, shopping, managing finances, etc.?: I choose not to answer this question Are you currently unemployed and looking for a job?: I choose not to answer this question Are you interested in more education?: I choose not to answer this question Please select the resources that you would like help with: None Currently or been in a relationship where the following occur: No concerns reported THRIVE Score: 0 AUDIT C Alcohol Use Questionnaire (AUDIT-C) 1. How often do you have a drink containing alcohol?: Never Total Score: 0 Score Reviewed/Action Taken: Yes ALIA-7 AMB Questionnaire ALIA-7 Date ALIA - 7 assessed: 06/19/23 Feeling nervous, anxious, or on edge: 0 = Not at all Not being able to stop or control worryin = Not at all Worrying too much about different things: 0 = Not at all Trouble relaxin = Not at all Being so restless that it is hard to sit still: 0 = Not at all Becoming easily annoyed or irritable: 0 = Not at all Feeling afraid as if something awful might happen: 0 = Not at all Total ALIA-7 score (0-4 normal; 5-9 mild; 10-14 moderate; 15-21 severe): 0 Source: Developed by Drs. Mauro Callaway, Justine Krishnan, Christiano June and colleagues, with an educational emelia from [employer]. ALIA-7 Assessment Billing ALIA-7 Assessment Tool: ALIA-7 Assessment 78786 Physical exam (Primary Care) Tobacco/Smoking Status: Tobacco use Status Tobacco use date assessed 06/19/23 06/24/24 15:32 Patient Tobacco Use Status Former Tobacco user 06/24/24 15:32 e-Cigarette/Vaping Use Never Used 06/24/24 15:32 Depression Screening Interpretation: Negative Thrive Assessment: Date of Thrive Assessment Date Thrive assessed 02/05/24 06/24/24 15:32 Currently or been in a relationship where the following occur: No concerns reported Const Orientation/consciousness: patient oriented x3 HENMT Ears: hearing grossly normal bilaterally and TM's normal bilaterally General nose exam: No nasal polyps present Face and sinus: Yes sinuses nontender Mouth: Normal oral and palatal mucosa present Eyes Pupils: Equal, round and reactive pupils present EOM: EOMs intact bilaterally Neck Neck: Yes full ROM and Yes no lymphadenopathy Thyroid: Thyroid normal Chest Chest palpation & inspection: normal inspection of the chest Resp Auscultation: clear to auscultation bilaterally Cardio Rate: regular rate Rhythm: regular rhythm Heart sounds: S1 normal heart sound present and S2 normal heart sound present Peripheral pulses: Peripheral pulses 2+ throughout GI Other: Soft, nontender Auscultation: normal bowel sounds Rectal Exam - Female: deferred General: Yes no CVA tenderness Back/Spine/Pelvis Other: Nontender Back: no CVA tenderness Skin General skin exam: no rashes or lesions noted Neuro General: patient oriented x3, gait normal, CN's II-XI intact bilaterally and deep tendon reflexes 2+ bilaterally Cranial nerves: Yes Equal, round and reactive pupils present Motor exam (neuro): 5/5 motor strength present throughout Sensory Exam: double simultaneous stimulation for sensation normal Coordination: vujhhn-dd-culs test normal and Romberg test negative Extrem General: Yes normal to inspection and Yes full ROM Psych Affect: normal affect Attitude: cooperative Thought process: Normal thought process present Thought content: Normal thought content present Insight: Good insight present (Psych) Judgement: Good judgement present (Psych) Coding Level of Care Code Est Pt Level 3 (17149) Complex EM visit Add On G2211 Diagnoses Routine general medical examination at a health care facility Z00.00 Type 2 diabetes mellitus without complication, without long-term current use of insulin E11.9 Diabetes mellitus long-term insulin use: without long-term use Diabetes mellitus complication status: without complication Hyperlipidemia E78.5 Elevated TSH R79.89 Pain of both breasts N64.4 Family history of BRCA gene mutation Z84.81 Additional Codes PHQ-9 - 90623 - PHQ-9 Billing: Yes ([id number]) ALIA-7 Assessment Billing - ALIA-7 Assessment Tool: ALIA-7 Assessment 04077 ([id number]) Assessment & Plan Assessment & Plan (1) Routine general medical examination at a health care facility: Code(s): Z00.00 - Encounter for general adult medical examination without abnormal findings Plan: reviewed referral to facility planner referral to genetics given [facility] hx (2) Type 2 diabetes mellitus: Code(s): E11.9 - Type 2 diabetes mellitus without complications Category: Medical Qualifiers: Diabetes mellitus health insurance agent insulin use: without health insurance agent use Diabetes mellitus complication status: without complication Qualified Code(s): E11.9 - Type 2 diabetes mellitus without complications Plan: testing supplies ordered increase trulicity to 3 mg weekly. referral to dm education We discussed that her A1c is not at goal at 7.4. She is going to work on diet changes. I have advised for a short term follow up to recheck her A1c and blood sugars. She will keep track of her blood sugars. Diabetic labs ordered Reviewed signs and symptoms of hyper and hypoglycemia that would require emergent medical treatment. (3) Hyperlipidemia: Code(s): E78.5 - Hyperlipidemia, unspecified Category: Medical Plan: lipids ordered (4) Elevated TSH: Code(s): R79.89 - Other specified abnormal findings of blood chemistry Category: Medical Plan: tsh ordered (5) Pain of both breasts: Code(s): N64.4 - Mastodynia Category: Medical Plan: mammo and u/s ordered (6) Family history of BRCA gene mutation: Code(s): Z84.81 - Family history of carrier of genetic disease Category: Medical Plan: referral to genetics Orders: Orders Complete Blood Count Auto Diff Today E11.9 - Type 2 diabetes mellitus without complications, E66.01 - Morbid (severe) obesity due to excess calories, E78.5 - Hyperlipidemia, unspecified, R79.89 - Other specified abnormal findings of blood chemistry, Z68.44 - Body mass index [BMI] 60.0-69.9, adult TSH reflex Free T4 Today E11.9 - Type 2 diabetes mellitus without complications, E66.01 - Morbid (severe) obesity due to excess calories, E78.5 - Hyperlipidemia, unspecified, R79.89 - Other specified abnormal findings of blood chemistry, Z68.44 - Body mass index [BMI] 60.0-69.9, adult Microalbumin, Random (w Creat) Today E11.9 - Type 2 diabetes mellitus without complications, E66.01 - Morbid (severe) obesity due to excess calories, E78.5 - Hyperlipidemia, unspecified, R79.89 - Other specified abnormal findings of blood chemistry, Z68.44 - Body mass index [BMI] 60.0-69.9, adult MM diagnostic mammo BI Today N64.4 - Mastodynia US breast RT limited Today N64.4 - Mastodynia Comprehensive [place]. Panel Fast Today E11.9 - Type 2 diabetes mellitus without complications, E66.01 - Morbid (severe) obesity due to excess calories, E78.5 - Hyperlipidemia, unspecified, R79.89 - Other specified abnormal findings of blood chemistry, Z68.44 - Body mass index [BMI] 60.0-69.9, adult Lipid Panel Today E11.9 - Type 2 diabetes mellitus without complications, E66.01 - Morbid (severe) obesity due to excess calories, E78.5 - Hyperlipidemia, unspecified, R79.89 - Other specified abnormal findings of blood chemistry, Z68.44 - Body mass index [BMI] 60.0-69.9, adult US breast LT limited Today N64.4 - Mastodynia Referrals Diabetes Education Referral E11.9 - Type 2 diabetes mellitus without complications COATER ASSOCIATE Referral Z01.419 - Encounter for gynecological examination (general) (routine) without abnormal findings Genetics Referral Z80.3 - Family history of malignant neoplasm of breast, Z80.41 - Family history of malignant neoplasm of ovary, Z84.81 - Family history of carrier of genetic disease Medications: New dulaglutide (Trulicity) 3 mg (0.5 mL) subcut QWEEK 2 mL 3RF blood-glucose meter (FreeStyle Lite Meter kit) Use daily As directed to check blood sugars 1 ea 0RF E11.22 - Type 2 diabetes mellitus with diabetic chronic kidney disease, E11.9 - Type 2 diabetes mellitus without complications, Z79.4 - equal 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
[2024-06-24 15:39] VITALS: BP 122/75; PULSE 111; RESP 16; O2SAT 98; BMI 58.5
== END 2024-06-24 16:06 | disposition home or self-care (01) ==
LOC: HO.HMCFM 15:20
PROVIDERS: PCP Family Medicine; Visit Provider Physician Assistant
DX: Z00.00 Encounter for general adult medical examination without abnormal findings (principal); E11.9 Type 2 diabetes mellitus without complications; E78.5 Hyperlipidemia, unspecified; R79.89 Other specified abnormal findings of blood chemistry; N64.4 Mastodynia; Z84.81 Family history of carrier of genetic disease

== ENCOUNTER → 2024-06-24 15:20 | Outpatient (BNVA) | payer OTHER, SELFPAY | PROVIDERS: PCP Family Medicine; Visit Provider Physician Assistant | DX: Z00.01 Encounter for general adult medical examination with abnormal findings (principal); F41.9 Anxiety disorder, unspecified; F32.A Depression, unspecified; E28.2 Polycystic ovarian syndrome; E11.9 Type 2 diabetes mellitus without complications; E78.5 Hyperlipidemia, unspecified; G47.30 Sleep apnea, unspecified; N64.4 Mastodynia; E66.01 Morbid (severe) obesity due to excess calories; Z84.81 Family history of carrier of genetic disease; Z79.84 Long term (current) use of oral hypoglycemic drugs; R79.89 Other specified abnormal findings of blood chemistry; Z68.43 Body mass index [BMI] 50.0-59.9, adult | CPT/HCPCS: 83036; 96127; 99212 ==

== ENCOUNTER → 2024-07-15 12:34 | Outpatient (BNVA) | payer OTHER, SELFPAY | PROVIDERS: PCP Family Medicine; Visit Provider Registered Nurse Diabetes Educator | DX: E11.9 Type 2 diabetes mellitus without complications (principal); E23.6 Other disorders of pituitary gland; H53.9 Unspecified visual disturbance; G43.909 Migraine, unspecified, not intractable, without status migrainosus; G47.30 Sleep apnea, unspecified; R05.9 Cough, unspecified | CPT/HCPCS: 99211; 99212 ==

== ENCOUNTER 2024-07-15 15:06 | Outpatient (AMB) | payer OTHER, SELFPAY ==
[2024-07-15 15:22] VITALS: BP 138/65; PULSE 113; RESP 16; TEMP 36.6; O2SAT 98; BMI 56.4
--- NOTE | 2024-07-15 15:22 | MHC.PC.OV ---
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: No Is last menstrual period known: Yes Last menstrual period: 07/15/24 Post menopausal: No Patient : No Allergies bee pollen [BEE STINGS] Allergy (Unknown, Verified 07/15/24 15:28) ANAPHYLAXIS bee sting Allergy (Unknown, Uncoded 06/24/24 15:33) anaphylaxis Medication List - Last Reconciled 07/15/24 by Vazquez Montilla MD albuterol sulfate 90 mcg/actuation 2 puffs inhalation Q4-6H PRN blood sugar diagnostic (FreeStyle Lite Strips) Use once daily As directed to check blood glucose blood-glucose meter (FreeStyle Lite Meter kit) Use daily As directed to check blood sugars desog-e.estradiol/e.estradiol 0.15-0.02 mgx21 /0.01 mg x 5 1 tab PO DAILY dulaglutide (Trulicity) 3 mg (0.5 mL) subcut QWEEK epinephrine (EpiPen) 0.3 mg (0.3 mL) IM Q4H PRN famotidine 20 mg PO BEDTIME 30 days lancets (FreeStyle Lancets) use daily as directed to check blood glucose spironolactone (Aldactone) 75 mg (1.5 x 50 mg) PO QAM 90 days topiramate XR 50 mg PO DAILY Tobacco use date assessed: 07/15/24 Dental Screening Dental Screen Date: 07/15/24 Did you have a dental visit in the last 12 months?: No Did you have a dental problem in the last 6 months where you did not have access to dental care?: No Was dental information given to patient?: Patient has dentist HPI work clearance note HPI Details 28 y/o female presents today for a work clearance note. Had been following up with opthalmology for vision changes. Recent MRI showed empty sella but no comments were made on other signs of possible increased intracranial pressure. Pt notes she feels migraines have been getting better but is still reporting symptoms intermittently. She notes migraines/headaches have improved from about daily to to about 3x a month. [facility] Medical History PCOS (polycystic ovarian syndrome) Surgical History No pertinent past surgical history Family History Mother Scarlet fever Maternal Uncle Substance use disorder Maternal Grandmother Ovarian cancer Other Diabetes Social History Household Members: Family Both parents involved: Yes Caregiver staying overnight: No Housing: Apartment Are you a primary career technical supervisor to a significant other at home: No Do you presently have visiting nurse or other home services: No 75 years or older and lives alone: No Alcohol intake: current Alcohol intake frequency: holidays/special occasions only Patient Tobacco Use Status: Current someday Tobacco user e-Cigarette/Vaping Use: Currently Using Second Hand Smoke Exposure: No Patient : No service: No Current occupational status: employed 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 Cognitive needs: No Hearing needs: No Vision needs: No Female Reproductive History Menstrual Age of Menarche: 9 Date of last menstrual period: 07/15/24 Questionnaire Thrive Questionnaire Date Thrive assessed: 06/24/24 I am a: Patient What is your living situation today?: I have a steady place to live Within the past 12 months, did the food you bought not last and you didn't have the money to get more?: I choose not to answer this question Within the past 12 months, did you worry whether your food would run out before you got money to buy more?: I choose not to answer this question Do you have trouble paying for medicines?: I choose not to answer this question Do you have trouble getting transportation to medical appointments?: I choose not to answer this question Do you have trouble paying your heating and electricity bill?: I choose not to answer this question Do you have trouble taking care of your child, family member or friend?: I choose not to answer this question Do you have trouble with day-to-day activities such as bathing, preparing meals, shopping, managing finances, etc.?: I choose not to answer this question Are you currently unemployed and looking for a job?: I choose not to answer this question Are you interested in more education?: I choose not to answer this question Please select the resources that you would like help with: None Currently or been in a relationship where the following occur: No concerns reported THRIVE Score: 0 ALIA-7 AMB Questionnaire ALIA-7 Date ALIA - 7 assessed: 06/19/23 Source: Developed by Drs. Mauro Callaway, Justine Krishnan, Christiano June and colleagues, with an educational emelia from [employer]. Review of Systems Const Denies chills, Denies fatigue, Denies fever(s), Denies headache(s) and Denies weakness ENT Denies dizziness and Denies headache(s) Card Denies dyspnea Resp Denies cough, Denies dyspnea, Denies wheezing and Denies other (shortness of breath) Musc Denies numbness and Denies tingling Neuro Denies dizziness, Denies headache(s), Denies numbness, Denies tingling and Denies weakness Psych Denies anxiety and Denies depression Endo Denies fatigue Aller/Immun Denies wheezing Physical exam (Primary Care) Vital Signs: Last Vital Signs Temp 97.8 F 07/15/24 15:22 Pulse 113 H 07/15/24 15:22 Resp 16 07/15/24 15:22 BP 138/65 07/15/24 15:22 Pulse Ox 98 07/15/24 15:22 Oxygen Delivery Method Room Air 07/15/24 15:22 BMI result Body Mass Index 56.4 Tobacco/Smoking Status: Tobacco use Status Tobacco use date assessed 07/15/24 07/15/24 15:29 Patient Tobacco Use Status Current someday Tobacco 07/15/24 15:24 e-Cigarette/Vaping Use Currently Using 07/15/24 15:24 Thrive Assessment: Date of Thrive Assessment Date Thrive assessed 06/24/24 07/15/24 15:24 Currently or been in a relationship where the following occur: No concerns reported Const General: well developed; No acute distress Nutritional Appearance: well nourished and obese morbidly obese Orientation/consciousness: patient oriented x3 HENMT Head: Yes normocephalic and Yes atraumatic Eyes General: appearance normal, both eyes and all related structures Pupils: Equal, round and reactive pupils present EOM: EOMs intact bilaterally Resp Effort & Inspection: normal respiratory effort Neuro General: patient oriented x3 and gait normal Cranial nerves: Yes Equal, round and reactive pupils present Psych Affect: normal affect Coding Level of Care Code Est Pt Level 4 (84718) Diagnoses Empty sella turcica E23.6 Vision changes H53.9 Migraine G43.909 Sleep apnea G47.30 Cough R05.9 Assessment & Plan Assessment & Plan (1) Empty sella turcica: Comment: CT SCAN 06/2023 Empty sella turcica. Clinical correlation for signs of idiopathic intracranial hypertension is suggested. Referred to [facility] Endo Code(s): E23.6 - Other disorders of pituitary gland Category: Medical (2) Vision changes: Code(s): H53.9 - Unspecified visual disturbance Category: Medical (3) Migraine: Code(s): G43.909 - Migraine, unspecified, not intractable, without status migrainosus Category: Medical (4) Sleep apnea: Code(s): G47.30 - Sleep apnea, unspecified Category: Medical (5) Cough: Code(s): R05.9 - Cough, unspecified Category: Medical Plan History?of?migraines?and?vision?changes?with?MRI?showing?partially?empty?sella?and?there?was?some?concern?for?increased?intracranial?pressure. Certified Pharmacy Technician?did?not?see?any?evidence?of?this?with?funduscopic?examination. She?is?followed?by?Neurology?and?they?are?working?on?headaches?with?topiramate?and migraine?abortive?medications. Also?morbidly?obese?and?awakens?gasping/choking?while?sleeping?sometimes.??May?have?sleep?apnea?and?I?am?referring?her?to?Sleep?Medicine?for?evaluation?and?treatment. 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 Will?trial famotidine Check?chest?x-ray Otherwise?patient?is?feeling?well?and?would?like?to?return?to?work.??Will?send?letter?stating?that?she?is?able?to?form?the?duties?of?her?job. Orders: Orders XR chest 2V Today R05.9 - Cough, unspecified Referrals Sleep Medicine Referral G47.30 - Sleep apnea, unspecified Medications: New famotidine 20 mg PO BEDTIME 30 days 30 tabs 2RF
== END 2024-07-15 17:02 | disposition home or self-care (01) ==
LOC: HO.HMCFM 15:06
PROVIDERS: PCP Family Medicine; Visit Provider Family Medicine
DX: E23.6 Other disorders of pituitary gland (principal); H53.9 Unspecified visual disturbance; G43.909 Migraine, unspecified, not intractable, without status migrainosus; G47.30 Sleep apnea, unspecified; R05.9 Cough, unspecified

== ENCOUNTER 2024-08-03 08:23 | Outpatient (REF) | payer OTHER, SELFPAY ==
--- NOTE | ~2024-08-03 | US_ITS ---
EXAMINATION: US DIAGNOSTIC ULTRASOUND BREAST, LEFT CLINICAL INFORMATION: Left breast retroareolar pain.. COMPARISON: Comparison is made with relevant prior imaging. TECHNIQUE: Ultrasound of the breast is performed with real-time coello scale imaging and color Doppler. FINDINGS: Targeted color Doppler ultrasound scanning in the retroareolar region area of patient's pain demonstrates normal fibronodular breast tissue. There is no focal suspicious finding. There is no solid mass, architectural abnormality, duct ectasia, or edema in the soft tissue planes. Results are discussed with the patient at time of visit. US/US breast BI limited mamm only IMPRESSION: No sonographic abnormality to account for the patient's retroareolar pain. Recommend clinical evaluation and follow-up. ASSESSMENT: BI-RADS 1: Negative RECOMMENDATION: 1. Patient should be managed based on the clinical impression. Decision to proceed with biopsy should be based on clinical grounds and degree of clinical concern. 2. Otherwise, routine annual screening mammography age 39 Electronically signed by: Raegan Thompson DO 08/03/2024 09:28 AM EDT
== END 2024-08-03 08:24 | disposition home or self-care (01) ==
LOC: HO.MAMMO 08:23
PROVIDERS: PCP Family Medicine; Visit Provider Physician Assistant
DX: N64.4 Mastodynia (principal); N60.22 Fibroadenosis of left breast
CPT/HCPCS: 76642

== ENCOUNTER → 2024-08-03 08:30 | Outpatient (BNV) | payer OTHER, SELFPAY | PROVIDERS: PCP Family Medicine; Visit Provider Internal Medicine | DX: N64.4 Mastodynia (principal) | CPT/HCPCS: 76642 ==

== ENCOUNTER 2024-08-11 13:29 | Outpatient (REF) | payer OTHER, SELFPAY ==
[2024-08-11 19:00] LABS: Influenza A PCR NEGATIVE (Negative); Influenza B PCR NEGATIVE (Negative); Resp Syncy Virus RNA Qual PCR NEGATIVE (Negative); SARS COV2 PCR INHOUSE NEGATIVE (Negative)
== END 2024-08-11 13:30 | disposition home or self-care (01) ==
LOC: HO.LNP 13:29
PROVIDERS: PCP Family Medicine; Visit Provider Physician Assistant
DX: R06.2 Wheezing (principal); J06.9 Acute upper respiratory infection, unspecified; R09.89 Other specified symptoms and signs involving the circulatory and respiratory systems
CPT/HCPCS: 0241U; 99212

== ENCOUNTER 2024-08-11 13:29 | Outpatient (AMB) | payer OTHER, SELFPAY ==
--- NOTE | 2024-08-11 13:44 | MHC.PC.OV ---
Vital Signs 08/11/24 13:49 Height 5 ft 2 in Weight 310 lb 2 oz BMI 56.7 BP 116/81 Blood Pressure Location Rt brachial Position Sitting Respiration 16 Pulse 100 Pulse Source Pulse Oximeter Temp 98.6 F Pulse Oximetry (%) 97 Oxygen Delivery Method Room Air Intake Visit Reasons: cough Intake Note: Cough for 2-3 days. Had RSV in May. Tested for covid on 08/05/24 and was negative. Worked around pts that were positive for covid. Last exposure date was 08/05/24. Installment Account Checker Required: No Allergies bee pollen [BEE STINGS] Allergy (Unknown, Verified 08/11/24 13:45) ANAPHYLAXIS bee sting Allergy (Unknown, Uncoded 08/11/24 13:45) anaphylaxis Medication List - Last Reconciled 08/11/24 by Elena Roth PA-C albuterol sulfate 90 mcg/actuation 2 puffs inhalation Q4-6H PRN blood sugar diagnostic (FreeStyle Lite Strips) Use once daily As directed to check blood glucose blood-glucose meter (FreeStyle Lite Meter kit) Use daily As directed to check blood sugars desog-e.estradiol/e.estradiol 0.15-0.02 mgx21 /0.01 mg x 5 1 tab PO DAILY dulaglutide (Trulicity) 3 mg (0.5 mL) subcut QWEEK epinephrine (EpiPen) 0.3 mg (0.3 mL) IM Q4H PRN famotidine 20 mg PO BEDTIME 30 days lancets (FreeStyle Lancets) use daily as directed to check blood glucose spironolactone (Aldactone) 75 mg (1.5 x 50 mg) PO QAM 90 days sumatriptan succinate mg PO topiramate XR 50 mg PO DAILY Tobacco use date assessed: 07/15/24 Dental Screening Dental Screen Date: 07/15/24 HPI cough HPI Details Patient is a 28-year-old female who presents today with complaints of a Cough x 3 days. She states the cough is dry and she is wheezing a bit. She has not needed her albuterol. She does report a stuffy, runny nose, and sore throat. No ear pain, sinus pain or pressure. No fever or chills. Mother is sick with similar sx. [facility] Medical History PCOS (polycystic ovarian syndrome) Surgical History No pertinent past surgical history Family History Mother Scarlet fever Maternal Uncle Substance use disorder Maternal Grandmother Ovarian cancer Other Diabetes Social History Household Members: Family Both parents involved: Yes Caregiver staying overnight: No Housing: Apartment Are you a primary healthcare translator to a significant other at home: No Do you presently have visiting nurse or other home services: No 75 years or older and lives alone: No Alcohol intake: current Alcohol intake frequency: holidays/special occasions only Patient Tobacco Use Status: Former Tobacco user Years Smoked: 2 months in college e-Cigarette/Vaping Use: Currently Using (less then a year. 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 Current occupational exposures/hazards: No Cognitive needs: No Hearing needs: No Vision needs: No Female Reproductive History Menstrual Age of Menarche: 9 Questionnaire Thrive Questionnaire Date Thrive assessed: 06/24/24 I am a: Patient What is your living situation today?: I have a steady place to live Within the past 12 months, did the food you bought not last and you didn't have the money to get more?: I choose not to answer this question Within the past 12 months, did you worry whether your food would run out before you got money to buy more?: I choose not to answer this question Do you have trouble paying for medicines?: I choose not to answer this question Do you have trouble getting transportation to medical appointments?: I choose not to answer this question Do you have trouble paying your heating and electricity bill?: I choose not to answer this question Do you have trouble taking care of your child, family member or friend?: I choose not to answer this question Do you have trouble with day-to-day activities such as bathing, preparing meals, shopping, managing finances, etc.?: I choose not to answer this question Are you currently unemployed and looking for a job?: I choose not to answer this question Are you interested in more education?: I choose not to answer this question Please select the resources that you would like help with: None Currently or been in a relationship where the following occur: No concerns reported THRIVE Score: 0 ALIA-7 AMB Questionnaire ALIA-7 Date ALIA - 7 assessed: 06/19/23 Source: Developed by Drs. Mauro Callaway, Justine Krishnan, Christiano June and colleagues, with an educational emelia from [employer]. Physical exam (Primary Care) Vital Signs: Last Vital Signs Temp 98.6 F 08/11/24 13:49 Pulse 100 08/11/24 13:49 Resp 16 08/11/24 13:49 BP 116/81 08/11/24 13:49 Pulse Ox 97 08/11/24 13:49 Oxygen Delivery Method Room Air 08/11/24 13:49 BMI result Body Mass Index 56.7 Tobacco/Smoking Status: Tobacco use Status Tobacco use date assessed 07/15/24 08/11/24 13:55 Patient Tobacco Use Status Former Tobacco user 08/11/24 13:55 e-Cigarette/Vaping Use Currently Using (less then a 08/11/24 13:55 year. ) Thrive Assessment: Date of Thrive Assessment Date Thrive assessed 06/24/24 08/11/24 13:55 Currently or been in a relationship where the following occur: No concerns reported Const Orientation/consciousness: patient oriented x3 HENMT Other: TMs are dome-shaped with small air-fluid levels. Nasal mucosa erythematous. No sinus tenderness present. Oral mucosa WNL Ears: hearing grossly normal bilaterally Neck Thyroid: Thyroid normal Lymphatic: no lymphadenopathy noted Resp Effort & Inspection: normal respiratory effort and able to speak in complete sentences Auscultation: wheezes scattered wheezes and throughout Cardio Rate: regular rate Rhythm: regular rhythm Heart sounds: S1 normal heart sound present and S2 normal heart sound present GI Inspection: Yes normal to inspection Palpation (GI): Soft to palpation and Other GI palpation findings present (nontender, no cva tenderness) Auscultation: normoactive bowel sounds Rectal Exam - Female: deferred Skin General skin exam: no rashes or lesions noted Neuro General: patient oriented x3, gait normal and no focal motor deficits Coding Level of Care Code Est Pt Level 3 (16062) Complex EM visit Add On G2211 Diagnoses Wheezing R06.2 Viral URI with cough J06.9 Assessment & Plan Assessment & Plan (1) Wheezing: Code(s): R06.2 - Wheezing Category: Medical Plan: pred taper given discussed risks and benefits and adverse effects use albuterol prn (2) Viral URI with cough: Code(s): J06.9 - Acute upper respiratory infection, unspecified Category: Medical Plan: discussed supportive measures will start flonase and zyrtec. Orders: Orders SARS-CoV2/FLU/RSV Today J06.9 - Acute upper respiratory infection, unspecified, R06.2 - Wheezing, R09.89 - Other specified symptoms and signs involving the circulatory and respiratory systems Medications: New cetirizine (Zyrtec) 10 mg PO DAILY 30 tabs 1RF prednisone take 3 tab po x 3 days, take 2 tab po x 3 days, 1 tab po x 3 days 18 tabs 0RF fluticasone propionate 50 mcg/actuation (Flonase Allergy Relief) administer into each nostril 2 sprays intranasal DAILY 16 grams 0RF
[2024-08-11 13:49] VITALS: BP 116/81; PULSE 100; RESP 16; TEMP 37; O2SAT 97; BMI 56.7
== END 2024-08-11 14:06 | disposition home or self-care (01) ==
LOC: HO.HMCFM 13:30
PROVIDERS: PCP Family Medicine; Visit Provider Physician Assistant
DX: R06.2 Wheezing (principal); J06.9 Acute upper respiratory infection, unspecified

== ENCOUNTER 2024-08-17 14:53 | Outpatient (AMB) | payer OTHER, SELFPAY ==
--- NOTE | 2024-08-17 15:24 | A.OFFVIS_ITS ---
Intake Intake Visit Reasons: CGM trial System Administration Advisor Required: No Accompanied by: Self / Same As Patient Allergies bee pollen [BEE STINGS] Allergy (Unknown, Verified 08/11/24 13:45) ANAPHYLAXIS bee sting Allergy (Unknown, Uncoded 08/11/24 13:45) anaphylaxis HPI Comprehensive Diabetes Asmnt Most Recent Diabetes Results: Hemoglobin A1c 5.2 % 01/07/19 Cholesterol 256 mg/dL 01/31/22 HDL Cholesterol 42 mg/dL 01/31/22 Triglycerides 370 mg/dL 01/31/22 Creatinine 0.90 mg/dL (0.5-1.4) 12/25/23 Blood Urea Nitrogen 9 mg/dL (9-16) 12/25/23 Sodium 135 mmol/L (135-145) 12/25/23 Potassium 4.0 mmol/L (3.3-5.1) 12/25/23 Chloride 107 mmol/L (96-108) 12/25/23 Carbon Dioxide 18 mmol/L (22-29) L 12/25/23 Calcium 9.3 mg/dL (8.4-10.2) 12/25/23 AST 19 U/L (5-31) 01/31/22 ALT 29 U/L (0-31) 01/31/22 Total Protein 7.1 g/dL (6.5-8.0) 01/31/22 Albumin 4.3 g/dL (3.5-5.0) 01/31/22 [facility] Medical History PCOS (polycystic ovarian syndrome) Surgical History No pertinent past surgical history Family History Mother Scarlet fever Maternal Uncle Substance use disorder Maternal Grandmother Ovarian cancer Other Diabetes Social History Household Members: Family Both parents involved: Yes Caregiver staying overnight: No Housing: Apartment Are you a primary home health care coordinator to a significant other at home: No Do you presently have visiting nurse or other home services: No 75 years or older and lives alone: No Alcohol intake: current Alcohol intake frequency: holidays/special occasions only Patient Tobacco Use Status: Former Tobacco user Years Smoked: 2 months in college e-Cigarette/Vaping Use: Currently Using (less then a year. 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 Current occupational exposures/hazards: No Cognitive needs: No Hearing needs: No Vision needs: No Female Reproductive History Menstrual Age of Menarche: 9 Assessment & Plan Assessment & Plan (1) Type 2 diabetes mellitus: Code(s): E11.9 - Type 2 diabetes mellitus without complications Qualifiers: Diabetes mellitus ad terminal makeup operator insulin use: without intermediate use Diabetes mellitus complication status: without complication Qualified Code(s): E11.9 - Type 2 diabetes mellitus without complications Plan: Diabetes self-management education and support participation record Assessment/scale: 1= needs instructed? 2= needs review? 3= comprehend keep point? 4= demonstrates understanding/ competent? NC= Not Covered Topics Learning Objective: Initial visit Initial or post srvc Initial or post srvc Initial or post srvc Initial or post srvc Initial or post srvc Post srvc Comments Pre Edu-assessment/plan Outcome or reassess Outcome or reassess Outcome or reassess Outcome or reassess Outcome or reassess Outcome or reassess Diabetes pathophysiology 1 3 Healthy eating 1 3 Being active 1 3 Taking medication 1 2 Monitoring glucose 1 3 Acute complication 1 3 Chronic complicated 1 Lifestyle and healthy coping 1 Diabetes distress in support 1 ?Diabetes pathophysiology: ?Defined diabetes med identify own type of diabetes; list 3 options for treating diabetes Healthy eating: ?Described effect of type, amount and ?timing of food on blood glucose; list 3 methods for planning meal Being active: ?State effect of exercise on blood glucose level Taking medication: ?State effect of diabetes medications on diabetes; name diabetes medications taking, action and side effects Monitoring glucose: ?Identify recommended blood glucose targets and personal target Acute complication: ?List symptoms and treatment of hyper and hypoglycemia, DKA, sick day guidelines and guidelines for severe weather or situations of crisis and diabetes supply manage Chronic complication: ?To find the relationship of blood glucose levels to long- term complications of diabetes in screening and preventative measures Lifestyle and healthy coping: ?Described lifestyle and healthy coping strategies to rule out diabetes self-management Diabetes to stress and support: ?Recognize Diabetes to stress and be able to identified support options Learning objectives: The patient was provided with verbal and written education on the following topics as outlined below. Assess patient education level/literacy/barriers, patient was put on prednisone taper approximately 1 week ago for URI symptoms. Because of elevated glucose due to prednisone we will not set up sensor trial at this visit. Reviewed with patient the effects that prednisone can have on glucose levels. Patient's fasting glucose since starting prednisone has ranged from 321 mg/dL to 415 mg/dL Patient has been testing glucose once a day Prior to prednisone use fasting glucose ranged from 149 mg/dL to 218 mg/dL The patient met all learning objectives and was able to verbalize understanding and provide teach back of education topics discussed . The patient was provided with the opportunity to ask questions and all questions were answered. Topics covered in today?s session included: Medications (If applicable) * Name of medication? * Dosing/administration instructions? * Mechanism of action? * Potential side effects? * Potential adverse reaction and appropriate treatment? * Review onset, peak, duration Assess for concerns re: insurance coverage, cost, barriers to compliance Insulin/Injectables (If applicable) * Storage/care of insulin?? * Injection sites? * Site rotation? * Onset, peak, duration * Drawing up insulin? * Injecting insulin/other injectables? * Sharps disposal Continuous blood glucose monitoring (if applicable) Hypoglycemia and Hyperglycemia * Signs and symptoms? * Causes?? * Treatment? * Preventing hypoglycemia? * When to seek medical attention Target Goals: * Blood glucose targets and how you feel when your blood glucose is in and out of your target ranges. * Monitoring and knowing your A1C. * What can make blood glucose go up and down and preventing high and low blood glucose. * Review of blood sugar targets in expected goal range and outside of expected goal range. * Problem solving and preventing hyper/hypoglycemia. * Sick day management of diabetes. * Using blood sugar results in decision making process in managing diabetes. ?Patient was receptive to information provided and participated in the discussion. Asked?appropriate questions and demonstrated good understanding of the topics discussed.? ? Educational Materials: The patient was provided with the following written educational materials: Target Goal handout Smart Goal Assessment:? Patient will identify foods and current meal plan that contain carbohydrates Pt met goal 75% New Smart Goal: Patient will set up reminder note on the calendar in her kitchen to take Trulicity 3 mg once a week on Mondays Patient Response to instructions: Comprehension of Instructions: good Readiness to make changes:? Contemplation How confident they feel about making changes: Positive Portions of this note were created using voice recognition software, please excuse any words or phrases that may have been misinterpreted. Patient Instructions: Patient will follow-up with tipple oiler in 2 months Coding Level of Care Code Est Pt Level 1 (55590) Diagnoses Type 2 diabetes mellitus without complication, without long-term current use of insulin E11.9 Diabetes mellitus intermediate insulin use: without ad terminal makeup operator use Diabetes mellitus complication status: without complication
== END 2024-08-17 15:29 | disposition home or self-care (01) ==
LOC: HO.ENCR 14:54
PROVIDERS: PCP Family Medicine; Visit Provider Registered Nurse Diabetes Educator
DX: E11.9 Type 2 diabetes mellitus without complications (principal)

== ENCOUNTER → 2024-08-17 14:53 | Outpatient (BNVA) | payer OTHER, SELFPAY | PROVIDERS: PCP Family Medicine; Visit Provider Registered Nurse Diabetes Educator | DX: E11.9 Type 2 diabetes mellitus without complications (principal) | CPT/HCPCS: 99211 ==

== ENCOUNTER 2024-09-14 07:46 | Outpatient (REF) | payer OTHER, SELFPAY ==
[2024-09-14 18:15] LABS: Cholesterol 264 mg/dL (<200); HDL Cholesterol 47 mg/dL (>40); Triglycerides 510 mg/dL (<150)
[2024-09-14 18:23] LABS: Ferritin 125 ng/mL (10-122); Vitamin D 25-OH Total 35.4 ng/mL (>30)
[2024-09-14 18:31] LABS: Folate 7.5 ng/mL (> or = 4.0); Vitamin B12 239 pg/mL (200-900)
[2024-09-14 19:29] LABS: Reflex LDLD? Yes
[2024-09-15 06:05] LABS: Estimated Average Glucose 180 mg/dL; Hemoglobin A1c % 7.9 % (<6.0)
[2024-09-15 18:19] LABS: Homocysteine 7.9 umol/L (< or = 10.9)
[2024-09-16 11:13] LABS: LDL Cholesterol Direct 143 mg/dL (<100)
[2024-09-16 21:29] LABS: Methylmalonic Acid 74 nmol/L (55-335)
== END 2024-09-14 07:47 | disposition home or self-care (01) ==
LOC: HO.HKASLDS 07:46
PROVIDERS: PCP Family Medicine; Visit Provider Physician Assistant Medical
DX: R20.0 Anesthesia of skin (principal); G47.9 Sleep disorder, unspecified; R53.83 Other fatigue; R20.2 Paresthesia of skin; Z86.69 Personal history of other diseases of the nervous system and sense organs; G47.19 Other hypersomnia
CPT/HCPCS: 36415; 80061; 82306; 82607; 82728; 82746; 83036; 83090; 83721; 83921; 84443; 99202

== ENCOUNTER 2024-09-14 07:46 | Outpatient (AMB) | payer OTHER, SELFPAY ==
[2024-09-14 07:52] VITALS: BP 112/74; PULSE 87; O2SAT 98; BMI 57.4
--- NOTE | 2024-09-14 07:52 | MHC.OFFVIS ---
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 Also morbidly obese and awakens gasping/choking while sleeping sometimes. May have sleep apnea. Patient stated she has woken up from sleep gasping for air and could not get air into her lungs. Accompanied by: Self / Same As Patient Allergies bee pollen [BEE STINGS] Allergy (Unknown, Verified 09/14/24 07:55) ANAPHYLAXIS bee sting Allergy (Unknown, Uncoded 08/11/24 13:45) anaphylaxis HPI Comments Details: 28 year old female referred to us for a sleep evaluation by her pcp. She has trouble falling asleep and staying asleep through the night. She snores loudly and her mom witnessed the apneas. She almost fell asleep while driving to work one afternoon. She moves a lot through the night and will be perpendicular to her bed in the mornings. Bedtime is 9pm and will not fall asleep until 1am and will take a sleep aide, sometimes it helps her to fall asleep, but next day she is very groggy. Headaches She has headaches 2-3 days per week, can last all day if she does not take her medications. Starts on her l. side of head, does not migrate, she has cried due to the pain 10/10 at worse. Her vision changes, l. eye vision gets obscured x1, she lays down in a dark room and this helps. She denies photophobia, phonophobia, noise sensitivity, nausea, and vomiting. She denies dizziness, vertigo, losing her balance. RLS She sprained her l. ankle due to a fall, 08/2020 had xrays at [facility] and has numbness in her l. leg to the feet. She has numbness and tingling in hands bilaterally, when she shakes them and or repositions them it feels normal. [facility] Medical History PCOS (polycystic ovarian syndrome) Surgical History No pertinent past surgical history Family History Mother Scarlet fever Maternal Uncle Substance use disorder Maternal Grandmother Ovarian cancer Other Diabetes Social History Household Members: Family Both parents involved: Yes Caregiver staying overnight: No Housing: Apartment Are you a primary home health care social worker to a significant other at home: No Do you presently have visiting nurse or other home services: No 75 years or older and lives alone: No Alcohol intake: current Alcohol intake frequency: holidays/special occasions only Patient Tobacco Use Status: Former Tobacco user Years Smoked: 2 months in college e-Cigarette/Vaping Use: Currently Using (less then a year. 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 Current occupational exposures/hazards: No Cognitive needs: No Hearing needs: No Vision needs: No Female Reproductive History Menstrual Age of Menarche: 9 Physical Exam Vital Signs: Last Vital Signs Pulse 87 09/14/24 07:52 BP 112/74 09/14/24 07:52 Pulse Ox 98 09/14/24 07:52 Oxygen Delivery Method Room Air 09/14/24 07:52 BMI result Body Mass Index 57.4 Const Other: BMI is 57 and 314lbs. General: cooperative, comfortable and no acute distress Nutritional Appearance: obese Orientation/consciousness: patient oriented x3 HEENT Face and sinus: Yes face symmetric Teeth and gingiva: other (Mallmpti score is 4) Eyes Pupils: Equal, round and reactive pupils present Neck Neck: Yes full ROM Resp Effort & Inspection: normal respiratory effort and able to speak in complete sentences Neuro General: patient oriented x3 and moves all extremities Cranial nerves: Yes Facial sensation intact/muscles of mastication intact, Yes Equal, round and reactive pupils present, Yes Normal accommodation reflex present, Yes Normal facial strength present, Yes Midline tongue present, Yes Ability to bilaterally rotate head present and Yes Ability to bilaterally elevate shoulders present Gait exam (Neuro): Normal gait present Motor exam (neuro): 5/5 motor strength present throughout and Normal motor muscle tone present throughout Deep tendon reflexes (DTR's): Right triceps reflex intensity grade: 2+, Left triceps reflex intensity grade: 2+, Rt Biceps (C5, C6): 2+, Left biceps reflex intensity grade: 2+, Right brachioradialis reflex intensity grade: 2+, Left brachioradialis reflex intensity grade: 2+, Right patellar reflex intensity grade: 2+, Left patellar reflex intensity grade: 2+, Right ankle reflex intensity grade: 2+ and Left ankle reflex intensity grade: 2+ Psych Appearance: grossly normal Attitude: cooperative Thought content: Normal thought content present Results Reviewed Results Reviewed: Opthalmology consult notes 05/2024 Normal eye exam r/o ICP, and transititonal monocular vision loss. MRI ESS partial sella turcia, compressed pituitary gland, increased csf. Assessment & Plan Assessment & Plan (1) Excessive daytime sleepiness: Code(s): G47.19 - Other hypersomnia Category: Medical (2) Hx of migraines: Comment: Blood sugars 341, A1c 8.4, monocular vision loss Code(s): Z86.69 - Personal history of other diseases of the nervous system and sense organs Category: Medical (3) Numbness and tingling of lower extremity: Comment: T2DM / PCOS Code(s): R20.0 - Anesthesia of skin; R20.2 - Paresthesia of skin Category: Medical Plan HST r/o desmond Labs r/o deficiencies BMI is elevated 57.5 weight is 314lb. referal to weight management Orders: Orders RT home sleep study Today G47.19 - Other hypersomnia Ferritin Today G47.19 - Other hypersomnia, R20.0 - Anesthesia of skin, R20.2 - Paresthesia of skin, Z86.69 - Personal history of other diseases of the nervous system and sense organs Methylmalonic Acid Today G47.19 - Other hypersomnia, G47.9 - Sleep disorder, unspecified, R20.0 - Anesthesia of skin, R20.2 - Paresthesia of skin, R53.83 - Other fatigue, Z86.69 - Personal history of other diseases of the nervous system and sense organs Vitamin B12 and Folate Today G47.19 - Other hypersomnia, R20.0 - Anesthesia of skin, R20.2 - Paresthesia of skin, Z86.69 - Personal history of other diseases of the nervous system and sense organs Hemoglobin A1c Today G47.19 - Other hypersomnia, R20.0 - Anesthesia of skin, R20.2 - Paresthesia of skin, Z86.69 - Personal history of other diseases of the nervous system and sense organs Lipid Panel with Reflex Today G47.19 - Other hypersomnia, R20.0 - Anesthesia of skin, R20.2 - Paresthesia of skin, Z86.69 - Personal history of other diseases of the nervous system and sense organs Homocysteine Today G47.19 - Other hypersomnia, G47.9 - Sleep disorder, unspecified, R20.0 - Anesthesia of skin, R20.2 - Paresthesia of skin, R53.83 - Other fatigue, Z86.69 - Personal history of other diseases of the nervous system and sense organs Vitamin D 25-OH Total Today G47.19 - Other hypersomnia, R20.0 - Anesthesia of skin, R20.2 - Paresthesia of skin, Z86.69 - Personal history of other diseases of the nervous system and sense organs TSH reflex Free T4 Today G47.19 - Other hypersomnia, R20.0 - Anesthesia of skin, R20.2 - Paresthesia of skin, Z86.69 - Personal history of other diseases of the nervous system and sense organs Referrals Medical Weight Management Referral E66.01 - Morbid (severe) obesity due to excess calories Patient Instructions: Sleep Hygiene provided: set a scheduled bedtime and wake time to help regulate the circadian rhythm and balance the release of pituitary hormones. Sleep in a dark room, temperatures below 68 degrees, and no devices n bed. Limit caffeinated products 6 hours prior to bed, and limit fluids 2-4 hours prior to bed. Gentle night yoga, diffusing essential oils, and playing soft music can be relaxing. Coding Level of Care Code New Pt Level 4 (30613) Diagnoses Excessive daytime sleepiness G47.19 Hx of migraines Z86.69 Numbness and tingling of lower extremity R20.0; R20.2 Time Spent (min) 30 Comment Evaluation Sleep Questionnaire Difficulty falling asleep: Yes Difficulty staying asleep?: Yes Snoring: Yes Witnessed apneas: Yes Gasping arousals: No Nocturia: Yes GERD: No Vivid dreams: Yes Acting out dreams: No Abnormal behavior in sleep: No Abnormal movements in sleep: Yes Morning headaches: Yes Excessive daytime sleepiness: Yes Daytime naps: Yes Restless legs: No Hallucinations: No Sleep paralysis: No Drop attacks: No Sleep Study: No CPAP: No
== END 2024-09-14 08:51 | disposition home or self-care (01) ==
LOC: HO.HSMS 07:47
PROVIDERS: PCP Family Medicine; Visit Provider Physician Assistant Medical
DX: G47.19 Other hypersomnia (principal); Z86.69 Personal history of other diseases of the nervous system and sense organs; R20.0 Anesthesia of skin; R20.2 Paresthesia of skin
CPT/HCPCS: 99204

== ENCOUNTER 2024-09-27 14:03 | Outpatient (AMB) | payer OTHER, SELFPAY ==
--- NOTE | 2024-09-27 14:18 | MHC.PC.OV ---
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: No Allergies bee pollen (BEE STINGS) Allergy (Unknown, Verified 09/27/24 14:22) ANAPHYLAXIS bee sting Allergy (Unknown, Uncoded 08/11/24 13:45) anaphylaxis Medication List - Last Reconciled 09/27/24 by Vazquez Montilla MD albuterol sulfate 90 mcg/actuation 2 puffs inhalation Q4-6H PRN blood sugar diagnostic (FreeStyle Lite Strips) Use once daily As directed to check blood glucose blood-glucose meter (FreeStyle Lite Meter kit) Use daily As directed to check blood sugars cetirizine (Zyrtec) 10 mg PO DAILY desog-e.estradiol/e.estradiol 0.15-0.02 mgx21 /0.01 mg x 5 1 tab PO DAILY dulaglutide (Trulicity) 3 mg (0.5 mL) subcut QWEEK epinephrine (EpiPen) 0.3 mg (0.3 mL) IM Q4H PRN famotidine 20 mg PO BEDTIME 30 days fluticasone propionate 50 mcg/actuation (Flonase Allergy Relief) 2 sprays intranasal DAILY lancets (FreeStyle Lancets) use daily as directed to check blood glucose spironolactone (Aldactone) 75 mg (1.5 x 50 mg) PO QAM 90 days sumatriptan succinate mg PO topiramate XR 50 mg PO DAILY Tobacco use date assessed: 07/15/24 Dental Screening Dental Screen Date: 07/15/24 HPI f/u med check for dm HPI Details 28 y/o female presents to f/u diabetes. Last A1c 09/14/24 7.9%. She is on Trulicity and notes she has been taking this as prescribed. Pt has gained about 10 lbs of weight over the past few months. Has not been controlling her diabetic diet well. Has been working on this and has cut back on her soda use. Blood pressure today 130/60, 107p. Has complaints of a fungal infection of skin. [facility] Medical History PCOS (polycystic ovarian syndrome) Surgical History No pertinent past surgical history Family History Mother Scarlet fever Maternal Uncle Substance use disorder Maternal Grandmother Ovarian cancer Other Diabetes Social History (Updated 09/24/24 @ 09:47 by Marleny Darden [facility]) Household Members: Family Both parents involved: Yes Caregiver staying overnight: No Housing: Apartment Are you a primary animal caregiver to a significant other at home: No Do you presently have visiting nurse or other home services: No 75 years or older and lives alone: No Alcohol intake: current Alcohol intake frequency: holidays/special occasions only Patient Tobacco Use Status: Former Tobacco user Years Smoked: 2 months in college e-Cigarette/Vaping Use: Currently Using Second Hand Smoke Exposure: No service: No Current occupational status: employed 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 Current occupational exposures/hazards: No Cognitive needs: No Hearing needs: No Vision needs: No Female Reproductive History Menstrual Age of Menarche: 9 Questionnaire PHQ-9 Over the last 2 weeks, how often have you been bothered by any of the following problems? 3. Trouble falling or staying asleep, or sleeping too much: several days Source: Developed by Drs. Mauro Callaway, Justine Krishnan, Christiano June and colleagues, with an educational emelia from [employer]. Thrive Questionnaire Date Thrive assessed: 06/24/24 I am a: Patient What is your living situation today?: I have a steady place to live Within the past 12 months, did the food you bought not last and you didn't have the money to get more?: I choose not to answer this question Within the past 12 months, did you worry whether your food would run out before you got money to buy more?: I choose not to answer this question Do you have trouble paying for medicines?: I choose not to answer this question Do you have trouble getting transportation to medical appointments?: I choose not to answer this question Do you have trouble paying your heating and electricity bill?: I choose not to answer this question Do you have trouble taking care of your child, family member or friend?: I choose not to answer this question Do you have trouble with day-to-day activities such as bathing, preparing meals, shopping, managing finances, etc.?: I choose not to answer this question Are you currently unemployed and looking for a job?: I choose not to answer this question Are you interested in more education?: I choose not to answer this question Please select the resources that you would like help with: None Currently or been in a relationship where the following occur: No concerns reported THRIVE Score: 0 AUDIT C Alcohol Use Questionnaire (AUDIT-C) 2. How many drinks containing alcohol do you have on a typical day when you are drinking?: 1 or 2 3. How often do you have six or more drinks on one occasion?: Never Total Score: 0 ALIA-7 AMB Questionnaire ALIA-7 Date ALIA - 7 assessed: 06/19/23 Source: Developed by Drs. Mauro Callaway, Justine Krishnan, Christiano June and colleagues, with an educational emelia from [employer]. Review of Systems Const Denies chills, Denies fatigue, Denies fever(s), Denies headache(s) and Denies weakness ENT Denies dizziness and Denies headache(s) Card Denies dyspnea Resp Denies cough, Denies dyspnea, Denies wheezing and Denies other (shortness of breath) Musc Denies numbness and Denies tingling Neuro Denies dizziness, Denies headache(s), Denies numbness, Denies tingling and Denies weakness Psych Denies anxiety and Denies depression Endo Denies fatigue Aller/Immun Denies wheezing Physical exam (Primary Care) Vital Signs: Last Vital Signs Temp 98.0 F 09/27/24 14:23 Pulse 107 H 09/27/24 14:23 Resp 14 09/27/24 14:23 BP 130/60 09/27/24 14:23 Pulse Ox 97 09/27/24 14:23 Oxygen Delivery Method Room Air 09/27/24 14:23 BMI result Body Mass Index 58.2 Tobacco/Smoking Status: Tobacco use Status Tobacco use date assessed 07/15/24 09/27/24 14:19 Patient Tobacco Use Status Former Tobacco user 09/27/24 14:19 e-Cigarette/Vaping Use Currently Using 09/27/24 14:19 Thrive Assessment: Date of Thrive Assessment Date Thrive assessed 06/24/24 09/27/24 14:19 Currently or been in a relationship where the following occur: No concerns reported Const General: well developed; No acute distress Nutritional Appearance: obese morbidly obese Orientation/consciousness: patient oriented x3 HENMT Head: Yes normocephalic and Yes atraumatic Eyes General: appearance normal, both eyes and all related structures Pupils: Equal, round and reactive pupils present EOM: EOMs intact bilaterally Resp Effort & Inspection: normal respiratory effort Neuro General: patient oriented x3 and gait normal Cranial nerves: Yes Equal, round and reactive pupils present Psych Affect: normal affect Coding Level of Care Code Est Pt Level 4 (66369) Diagnoses Type 2 diabetes mellitus without complication, without long-term current use of insulin E11.9 Diabetes mellitus complication status: without complication 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 Patient?has?gained?about?10?lb?of?weight?over?the?past?few?months?and?notes?that?she?has?not?been?controlling?her?diabetic?diet?well. Continue?Trulicity?and?adding?glipizide?ER?5?mg?daily Work?on?diabetic?diet?and?weight?loss We?discussed?that?if?we?get?her?blood?sugar?under?nelson?control?we?can?also?consider?switching?to?a?different?medication?such?as Zepbound?rather?than?Trulicity?for?better?weight?control. (2) Elevated blood pressure reading in office without diagnosis of hypertension: Code(s): R03.0 - Elevated blood-pressure reading, without diagnosis of hypertension Category: Medical Plan: Blood?pressure?in?prehypertensive?range Encouraged?weight?loss?today Will?continue?monitor (3) Morbid obesity: Code(s): E66.01 - Morbid (severe) obesity due to excess calories Category: Medical Plan: Patient?is?now?followed?by?weight?management?program Encouraged?further?weight?loss As?above,?we?discussed?that?we?could?consider?using?Zepbound?rather?than Trulicity?once?her?blood?sugars?are?under?better?control (4) Fungal infection of skin: Code(s): B36.9 - Superficial mycosis, unspecified Category: Medical Plan: Avoid?excess?moisture Use?clotrimazole Medications: Refilled clotrimazole 1% 1 appl topical BID 60 grams 1RF 2 weeks epinephrine (EpiPen) 0.3 mg (0.3 mL) IM Q4H PRN 2 ea 0RF anaphylaxis
[2024-09-27 14:23] VITALS: BP 130/60; PULSE 107; RESP 14; TEMP 36.7; O2SAT 97; BMI 58.2
== END 2024-09-27 15:15 | disposition home or self-care (01) ==
LOC: HO.HMCFM 14:04
PROVIDERS: PCP Family Medicine; Visit Provider Family Medicine
DX: E11.9 Type 2 diabetes mellitus without complications (principal); E66.01 Morbid (severe) obesity due to excess calories; Z68.43 Body mass index [BMI] 50.0-59.9, adult; R03.0 Elevated blood-pressure reading, without diagnosis of hypertension; B36.9 Superficial mycosis, unspecified

== ENCOUNTER → 2024-09-27 14:03 | Outpatient (BNVA) | payer OTHER, SELFPAY | PROVIDERS: PCP Family Medicine; Visit Provider Family Medicine | DX: E11.9 Type 2 diabetes mellitus without complications (principal); R03.0 Elevated blood-pressure reading, without diagnosis of hypertension; E66.01 Morbid (severe) obesity due to excess calories; B36.9 Superficial mycosis, unspecified | CPT/HCPCS: 99212 ==

== ENCOUNTER 2024-10-19 08:14 | Outpatient (AMB) | payer OTHER, SELFPAY ==
--- NOTE | 2024-10-19 11:26 | MHC.OFFVISWM ---
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 Allergies bee pollen (BEE STINGS) Allergy (Unknown, Verified 10/19/24 11:27) ANAPHYLAXIS bee sting Allergy (Unknown, Uncoded 10/19/24 11:27) anaphylaxis Medication List - Last Reconciled 10/19/24 by Yair Joy MD albuterol sulfate 90 mcg/actuation 2 puffs inhalation Q4-6H PRN blood sugar diagnostic (FreeStyle Lite Strips) Use once daily As directed to check blood glucose blood-glucose meter (FreeStyle Lite Meter kit) Use daily As directed to check blood sugars cetirizine (Zyrtec) 10 mg PO DAILY clotrimazole 1% 1 appl topical BID 2 weeks desog-e.estradiol/e.estradiol 0.15-0.02 mgx21 /0.01 mg x 5 1 tab PO DAILY dulaglutide (Trulicity) 3 mg (0.5 mL) subcut QWEEK epinephrine (EpiPen) 0.3 mg (0.3 mL) IM Q4H PRN famotidine 20 mg PO BEDTIME 30 days fluticasone propionate 50 mcg/actuation (Flonase Allergy Relief) 2 sprays intranasal DAILY lancets (FreeStyle Lancets) use daily as directed to check blood glucose spironolactone (Aldactone) 75 mg (1.5 x 50 mg) PO QAM 90 days sumatriptan succinate mg PO topiramate XR 50 mg PO DAILY HPI 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: Details: Start time: 11.20am, End time: 12pm I spent 35 minutes speaking with the patient on the phone plus an additional 5 minutes reviewing and updating records for a total of 40 minutes HPI Comments Details: Previous weight loss efforts: self diets and exercise Wakes up: 6am, Sleeps: 12am, naps: 20min in afternoon Breakfast: skips Lunch: skips Dinner: 6-7pm (burgers, hot dogs, broccoli) Snacks: snacks twice before dinner (yogurt or granola bars) Exercise: has home treadmill (no incline or calorie tracking) Beverages: Coffee: none, tea: rarely, Soda: Regular Coke: daily, Juice: Cranberry (1/month), ETOH: 2/mth [facility] Medical History (Updated 10/19/24 @ 11:44 by Yair Joy MD) Morbid obesity with BMI of 50.0-59.9, adult Asthma GERD (gastroesophageal reflux disease) PCOS (polycystic ovarian syndrome) Surgical History No pertinent past surgical history Family History Mother Scarlet fever Maternal Uncle Substance use disorder Maternal Grandmother Ovarian cancer Other Diabetes Social History (Updated 09/24/24 @ 09:47 by Marleny Darden CMA) Household Members: Family Both parents involved: Yes Caregiver staying overnight: No Housing: Apartment Are you a primary continuum of care manager to a significant other at home: No Do you presently have visiting nurse or other home services: No 75 years or older and lives alone: No Alcohol intake: current Alcohol intake frequency: holidays/special occasions only Patient Tobacco Use Status: Former Tobacco user Years Smoked: 2 months in college e-Cigarette/Vaping Use: Currently Using Second Hand Smoke Exposure: No service: No Current occupational status: employed 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 Current occupational exposures/hazards: No Cognitive needs: No Hearing needs: No Vision needs: No Female Reproductive History Menstrual Age of Menarche: 9 Telehealth Telehealth Telehealth Platform: Telephone Location of provider rendering services: practice address Location of patient: address on file Patient Identification confirmed using: Name, : Yes Telehealth method: voice only Patient verbally consented to treatment: Yes Patient verbally consented to billing insurance company: Yes Patient informed of any privacy concerns related to visit: Yes Minutes spent on Phone/Video with Pt.: 40 Assessment & Plan Assessment & Plan (1) Morbid obesity with BMI of 50.0-59.9, adult: Code(s): E66.01 - Morbid (severe) obesity due to excess calories; Z68.43 - Body mass index [BMI] 50.0-59.9, adult Category: Medical Plan: 1. Plan for lap sleeve gastrectomy. If diaphragmatic or ventral hernias are present at time of surgery, these will be repaired laparoscopically as well. I emphasized the importance of close follow-up, adherence to instructions and good communication. The surgery does not replace the need to change your lifestlyle which is the cause of the obesity problem. The surgery provides the motivation to try again to change your lifestyle, it reduces the appetite and make the transition to a better lifestyle easier and doubles the amount of weight you would lose compared to doing the lifestyle change without the surgery. You will need to be on a liquid diet with protein shakes for 2 weeks before surgery to maximize weight loss and boost your nutritional status to recover better from surgery and also for the first two weeks after surgery to let the stomach heal before we introduce other foods. After the first 2 weeks we will introduce protein bars and soft foods like scrambled eggs, cottage cheese and yogurt and after the 6th week will introduce meat, fish and cooked vegetables in small amounts. Over time you should be able to eat everything in small amounts. Side effects like nausea, vomiting, heartburn or abdominal pain are not common in the practice unless you are not following in the practice. This operation requires lifetime commitment to following in our practice and communication with me. You will much less weight and experience side effects if you don?t communicate or not following in the practice. Complications are rare and in our practice is about 1/10 of the national average. However, you can develop bleeding that may require transfusion (hasn?t happened for year in the practice), you may from complications (we did not have any deaths in the practice) and infections. Infections are usually a result of breakdown in communication or not understanding or following directions correctly. They are difficult to treat, they can happen during the first 6 weeks, they may require to be in the hospital for weeks or even months, not being able to eat by mouth and you may have drains and surgeries to try and correct the issue. Other risks and complications include possible conversion to an open procedure, leaks, small bowel obstruction, blood clots, cardiac, or pulmonary complications, as alf complications such as ulcers, insufficient weight loss and vitamin deficiencies. 2.Nutritional counseling. Start with one premade PREMIER protein (buy at [employer], or [employer], or [employer]) shake (8oz of PREMIER and NOT the whole bottle) at 7am-9am, 1 protein bar (16gr Fit Crunch protein bars, buy at [employer], [employer] or [employer]) at 10am-12pm, another premade PREMIER protein (buy at [employer], or [employer], or [employer]) shake (8oz of PREMIER and NOT the whole bottle) at 1pm-3pm, another Fit Crunch protein bar at 4pm-6pm, dinner at 7pm (10 forks of protein and 10 forks of salad/vegetables) and one more [employer]unch protein bar after dinner at 9pm-11pm. So you do 2 protein shakes, 3 protein bars and one meal per day. Meal to include lean meat (beef, fish, pork, turkey, chicken), or yi yogurt, or egg whites, or beans with a salad with olive oil and fruits (berries, pears, apples, kiwi). Avoid salt, breads, potatoes, rice, pasta, desserts. 3. Each shake would be drunk slowly, like coffee in a period of 2 hours. 4. Cut each bar in 4 pieces and eat each piece in 30min to make each bar last 2 hours. 5. I emphasized the importance of measuring accurately the food portion and measure it when serving the food in plate 6. The meal portions include 10 full-size forks of meat and 10 full-size forks of salad. You always eat the meat portion but you can replace up to 5 forks for salad/vegetables with rice, potatoes or pasta, or a fruit if you like. The less you do it the better weight loss will be. 7. One full-size fork is what it can be scooped on the fork without falling aside and not what can be bit with the fork. Use regular forks like those you find in a typical restaurant. 8. Please buy the body composition scale we discussed and send me weight measurements as soon as possible and then once a week. Always include your diet and exercise plan. 9. Start treadmill daily. Goal is to burn 2000 calories per week on exercise, which means either 300 calories daily, or 400 calories 5 days per week. 10. The best choice would be to purchase a stationary bike at home that can track calories. Let me know if you do so I can give you an exercise plan. 11. It is important of avoiding and for at least 18 months postoperatively and has been discussed at the infosession. 12. Goal is to lose at least 1.5-2lbs per week 13. Goal to lose 10% of your weight before surgery, which is about 32lbs. Ultimate weight goal: 282lbs before surgery 14. Please follow the diet plan exactly without any change. If you don't like something about the plan or you feel hungry you need to communicate with me so I can help you revise the plan. You should not change the plan yourself 15. To be scheduled for EGD to assess the stomach's anatomy. The possibility of biopsies was discussed. Patient needs to avoid use of NSAIDs and aspirin for 1 week prior to EGD. You must be on liquids only the day before your endoscopy. Risks of perforation and bleeding was discussed with the patient. This will be an outpatient procedure with IV sedation. 16. As of tomorrow, please send me a picture of your meal plate after you measure it, but before you consume it. 17. I ordered a medication to help you with the weight loss which is called Yohan. My office will try to authorize it. Once you get it, please stop the Trulicity and use this instead, once a week. Please let me know when you have one injection left so I can prescribe the next dose. Common side effects include nausea, vomiting, constipation, diarrhea, abdominal pain. Please let me know if you develop any of these symptoms. Orders: Orders Insulin Today E11.9 - Type 2 diabetes mellitus without complications, E28.2 - Polycystic ovarian syndrome, E66.01 - Morbid (severe) obesity due to excess calories, E78.1 - Pure hyperglyceridemia, E78.5 - Hyperlipidemia, unspecified, R03.0 - Elevated blood-pressure reading, without diagnosis of hypertension, Z68.43 - Body mass index [BMI] 50.0-59.9, adult Complete Blood Count Auto Diff Today E11.9 - Type 2 diabetes mellitus without complications, E28.2 - Polycystic ovarian syndrome, E66.01 - Morbid (severe) obesity due to excess calories, E78.1 - Pure hyperglyceridemia, E78.5 - Hyperlipidemia, unspecified, R03.0 - Elevated blood-pressure reading, without diagnosis of hypertension, Z68.43 - Body mass index [BMI] 50.0-59.9, adult IRON PROFILE Today E11.9 - Type 2 diabetes mellitus without complications, E28.2 - Polycystic ovarian syndrome, E66.01 - Morbid (severe) obesity due to excess calories, E78.1 - Pure hyperglyceridemia, E78.5 - Hyperlipidemia, unspecified, R03.0 - Elevated blood-pressure reading, without diagnosis of hypertension, Z68.43 - Body mass index [BMI] 50.0-59.9, adult Vitamin B12 and Folate Today E11.9 - Type 2 diabetes mellitus without complications, E28.2 - Polycystic ovarian syndrome, E66.01 - Morbid (severe) obesity due to excess calories, E78.1 - Pure hyperglyceridemia, E78.5 - Hyperlipidemia, unspecified, R03.0 - Elevated blood-pressure reading, without diagnosis of hypertension, Z68.43 - Body mass index [BMI] 50.0-59.9, adult Zinc Today E11.9 - Type 2 diabetes mellitus without complications, E28.2 - Polycystic ovarian syndrome, E66.01 - Morbid (severe) obesity due to excess calories, E78.1 - Pure hyperglyceridemia, E78.5 - Hyperlipidemia, unspecified, R03.0 - Elevated blood-pressure reading, without diagnosis of hypertension, Z68.43 - Body mass index [BMI] 50.0-59.9, adult C Reactive Protein Today E11.9 - Type 2 diabetes mellitus without complications, E28.2 - Polycystic ovarian syndrome, E66.01 - Morbid (severe) obesity due to excess calories, E78.1 - Pure hyperglyceridemia, E78.5 - Hyperlipidemia, unspecified, R03.0 - Elevated blood-pressure reading, without diagnosis of hypertension, Z68.43 - Body mass index [BMI] 50.0-59.9, adult Ferritin Today E11.9 - Type 2 diabetes mellitus without complications, E28.2 - Polycystic ovarian syndrome, E66.01 - Morbid (severe) obesity due to excess calories, E78.1 - Pure hyperglyceridemia, E78.5 - Hyperlipidemia, unspecified, R03.0 - Elevated blood-pressure reading, without diagnosis of hypertension, Z68.43 - Body mass index [BMI] 50.0-59.9, adult US abdomen comp w elastography Today E11.9 - Type 2 diabetes mellitus without complications, E28.2 - Polycystic ovarian syndrome, E66.01 - Morbid (severe) obesity due to excess calories, E78.1 - Pure hyperglyceridemia, E78.5 - Hyperlipidemia, unspecified, R03.0 - Elevated blood-pressure reading, without diagnosis of hypertension, Z68.43 - Body mass index [BMI] 50.0-59.9, adult XR chest 2V Today E11.9 - Type 2 diabetes mellitus without complications, E28.2 - Polycystic ovarian syndrome, E66.01 - Morbid (severe) obesity due to excess calories, E78.1 - Pure hyperglyceridemia, E78.5 - Hyperlipidemia, unspecified, R03.0 - Elevated blood-pressure reading, without diagnosis of hypertension, Z68.43 - Body mass index [BMI] 50.0-59.9, adult ECG 12 lead EKG Today E11.9 - Type 2 diabetes mellitus without complications, E28.2 - Polycystic ovarian syndrome, E66.01 - Morbid (severe) obesity due to excess calories, E78.1 - Pure hyperglyceridemia, E78.5 - Hyperlipidemia, unspecified, R03.0 - Elevated blood-pressure reading, without diagnosis of hypertension, Z68.43 - Body mass index [BMI] 50.0-59.9, adult FL upper GI w air Today E11.9 - Type 2 diabetes mellitus without complications, E28.2 - Polycystic ovarian syndrome, E66.01 - Morbid (severe) obesity due to excess calories, E78.1 - Pure hyperglyceridemia, E78.5 - Hyperlipidemia, unspecified, R03.0 - Elevated blood-pressure reading, without diagnosis of hypertension, Z68.43 - Body mass index [BMI] 50.0-59.9, adult Hemoglobin A1c Today E11.9 - Type 2 diabetes mellitus without complications, E28.2 - Polycystic ovarian syndrome, E66.01 - Morbid (severe) obesity due to excess calories, E78.1 - Pure hyperglyceridemia, E78.5 - Hyperlipidemia, unspecified, R03.0 - Elevated blood-pressure reading, without diagnosis of hypertension, Z68.43 - Body mass index [BMI] 50.0-59.9, adult H Pylori Breath Test Today E11.9 - Type 2 diabetes mellitus without complications, E28.2 - Polycystic ovarian syndrome, E66.01 - Morbid (severe) obesity due to excess calories, E78.1 - Pure hyperglyceridemia, E78.5 - Hyperlipidemia, unspecified, R03.0 - Elevated blood-pressure reading, without diagnosis of hypertension, Z68.43 - Body mass index [BMI] 50.0-59.9, adult Lipid Panel Today E11.9 - Type 2 diabetes mellitus without complications, E28.2 - Polycystic ovarian syndrome, E66.01 - Morbid (severe) obesity due to excess calories, E78.1 - Pure hyperglyceridemia, E78.5 - Hyperlipidemia, unspecified, R03.0 - Elevated blood-pressure reading, without diagnosis of hypertension, Z68.43 - Body mass index [BMI] 50.0-59.9, adult Comprehensive Met. Panel Today E11.9 - Type 2 diabetes mellitus without complications, E28.2 - Polycystic ovarian syndrome, E66.01 - Morbid (severe) obesity due to excess calories, E78.1 - Pure hyperglyceridemia, E78.5 - Hyperlipidemia, unspecified, R03.0 - Elevated blood-pressure reading, without diagnosis of hypertension, Z68.43 - Body mass index [BMI] 50.0-59.9, adult Vitamin B1 Today E11.9 - Type 2 diabetes mellitus without complications, E28.2 - Polycystic ovarian syndrome, E66.01 - Morbid (severe) obesity due to excess calories, E78.1 - Pure hyperglyceridemia, E78.5 - Hyperlipidemia, unspecified, R03.0 - Elevated blood-pressure reading, without diagnosis of hypertension, Z68.43 - Body mass index [BMI] 50.0-59.9, adult Vitamin A Today E11.9 - Type 2 diabetes mellitus without complications, E28.2 - Polycystic ovarian syndrome, E66.01 - Morbid (severe) obesity due to excess calories, E78.1 - Pure hyperglyceridemia, E78.5 - Hyperlipidemia, unspecified, R03.0 - Elevated blood-pressure reading, without diagnosis of hypertension, Z68.43 - Body mass index [BMI] 50.0-59.9, adult TSH reflex Free T4 Today E11.9 - Type 2 diabetes mellitus without complications, E28.2 - Polycystic ovarian syndrome, E66.01 - Morbid (severe) obesity due to excess calories, E78.1 - Pure hyperglyceridemia, E78.5 - Hyperlipidemia, unspecified, R03.0 - Elevated blood-pressure reading, without diagnosis of hypertension, Z68.43 - Body mass index [BMI] 50.0-59.9, adult Vitamin D 25-OH Total Today E11.9 - Type 2 diabetes mellitus without complications, E28.2 - Polycystic ovarian syndrome, E66.01 - Morbid (severe) obesity due to excess calories, E78.1 - Pure hyperglyceridemia, E78.5 - Hyperlipidemia, unspecified, R03.0 - Elevated blood-pressure reading, without diagnosis of hypertension, Z68.43 - Body mass index [BMI] 50.0-59.9, adult Referrals Behavioral Health Referral E11.9 - Type 2 diabetes mellitus without complications, E28.2 - Polycystic ovarian syndrome, E66.01 - Morbid (severe) obesity due to excess calories, E78.1 - Pure hyperglyceridemia, E78.5 - Hyperlipidemia, unspecified, R03.0 - Elevated blood-pressure reading, without diagnosis of hypertension, Z68.43 - Body mass index [BMI] 50.0-59.9, adult Nutrition/Dietitian Referral E11.9 - Type 2 diabetes mellitus without complications, E28.2 - Polycystic ovarian syndrome, E66.01 - Morbid (severe) obesity due to excess calories, E78.1 - Pure hyperglyceridemia, E78.5 - Hyperlipidemia, unspecified, R03.0 - Elevated blood-pressure reading, without diagnosis of hypertension, Z68.43 - Body mass index [BMI] 50.0-59.9, adult Medications: New tirzepatide (Mounjaro) for 4 weeks 2.5 mg (0.5 mL) subcut QWEEK 2 mL 0RF E66.01 - Morbid (severe) obesity due to excess calories, Z68.43 - Body mass index [BMI] 50.0-59.9, adult
[2024-10-19 11:40] VITALS: BMI 57.4
== END 2024-10-19 12:44 | disposition home or self-care (01) ==
LOC: HO.HBS 08:14
PROVIDERS: PCP Family Medicine; Visit Provider Surgery
DX: E66.01 Morbid (severe) obesity due to excess calories (principal); Z68.43 Body mass index [BMI] 50.0-59.9, adult
CPT/HCPCS: 99203

== ENCOUNTER 2024-11-02 09:31 | Outpatient (REF) | payer OTHER, SELFPAY ==
--- NOTE | ~2024-11-02 | XR_ITS ---
EXAMINATION: XR CHEST 2 VIEWS HISTORY: E66.01 - Morbid (severe) obesity due to excess calories COMPARISON: Comparison is made with the prior examination dated 11/25/2022. FINDINGS: PA and lateral views of the chest are submitted. The lungs are expanded and clear. There is no pleural effusion, pneumothorax, or pulmonary vascular congestion. The heart is normal in size. The bones are intact. XR/XR chest 2V IMPRESSION: No acute cardiopulmonary abnormality. Electronically signed by: Mauro Madrid MD 11/02/2024 10:25 AM EDT
[2024-11-02 09:50] LABS: MANUAL DIFF FLAG NO
--- NOTE | 2024-11-02 10:04 | ECG_ITS ---
Test Reason : OBESITY Blood Pressure : */* mmHG Vent. Rate : 82 BPM Atrial Rate : 82 BPM P-R Int : 152 ms QRS Dur : 92 ms QT Int : 420 ms P-R-T Axes : 45 47 16 degrees QTcB Int : 490 ms Normal sinus rhythm with sinus arrhythmia Prolonged QT Abnormal ECG No previous ECGs available Referred By: Yair Joy Electronically Signed By: PATTY SHANNON
[2024-11-02 10:16] LABS: Hematocrit 37.5 % (37.0-47.0); Hemoglobin 12.1 g/dl (12.0-16.0); Imm Gran Abs Auto 0.08 X10*3/uL (0.00-0.03); Imm Gran Pct Auto 0.9 % (0.0-0.4); Lymphocytes Absolute Auto 2.8 X10*3/uL (1.2-4.9); Mean Corpuscular HGB Conc 32.3 g/dl (31.0-35.0); Mean Corpuscular Hemoglobin 28.2 pg (27.0-33.0); Mean Corpuscular Volume 87.4 fL (80.0-98.0); NRBC Abs Auto 0.000 X10*3/uL (0.0-0.012); NRBC Pct Auto 0.0 /100WBC (0.0-0.2); Platelet Count 287 X10*3/uL (160-400); Red Blood Count 4.29 X10*6/uL (4.20-5.50); White Blood Count 9.2 X10*3/uL (4.8-10.8)
[2024-11-02 10:52] LABS: Hemoglobin A1C 192.0202 umol/L; Total Hemoglobin (HGBA1C) 3268.1970 umol/L
[2024-11-02 10:59] LABS: Alanine Aminotransferase 22 U/L (0-31); Albumin Level 4.1 g/dL (3.5-5.0); Alkaline Phosphatase 75 U/L (39-117); Anion Gap 11 (12-20); Aspartate Amino Transferase 26 U/L (5-31); Blood Urea Nitrogen 13 mg/dL (9-16); Calcium 9.0 mg/dL (8.4-10.2); Carbon Dioxide 23 mmol/L (22-29); Chloride 110 mmol/L (96-108); Cholesterol 212 mg/dL (<200); Estimated Glomerular Filt Rate > 60; HDL Cholesterol 41 mg/dL (>40); Iron 64 mcg/dL (30-160); Percent Iron Saturation 23 % (15-50); Potassium 3.8 mmol/L (3.3-5.1); Sodium 140 mmol/L (135-145); Total Iron Binding Capacity 279 mcg/dL (228-428); Total Protein 6.9 g/dL (6.5-8.0); Triglycerides 264 mg/dL (<150); Unsaturated Iron Binding 215 ug/dL
[2024-11-02 11:07] LABS: Ferritin 132 ng/mL (10-122)
[2024-11-02 11:21] LABS: Folate 8.1 ng/mL (> or = 4.0); Vitamin B12 316 pg/mL (200-900)
== END 2024-11-02 09:32 | disposition home or self-care (01) ==
LOC: HO.LAB 09:31
PROVIDERS: Visit Provider Surgery
DX: E11.9 Type 2 diabetes mellitus without complications (principal); E66.01 Morbid (severe) obesity due to excess calories; E28.2 Polycystic ovarian syndrome; E78.1 Pure hyperglyceridemia; E78.5 Hyperlipidemia, unspecified; R03.0 Elevated blood-pressure reading, without diagnosis of hypertension; R79.89 Other specified abnormal findings of blood chemistry; Z68.43 Body mass index [BMI] 50.0-59.9, adult
CPT/HCPCS: 36415; 71046; 80053; 80061; 82306; 82607; 82728; 82746; 83036; 83525; 83540; 84425; 84443; 84590; 84630; 85025; 86140; 93005

== ENCOUNTER → 2024-11-02 10:04 | Outpatient (BNV) | payer OTHER, SELFPAY | PROVIDERS: Visit Provider Internal Medicine | DX: R94.31 Abnormal electrocardiogram [ECG] [EKG] (principal); E66.01 Morbid (severe) obesity due to excess calories | CPT/HCPCS: 93010 ==

== ENCOUNTER → 2024-11-02 10:12 | Outpatient (BNV) | payer OTHER, SELFPAY | PROVIDERS: Visit Provider Radiology Diagnostic Radiology | DX: E66.01 Morbid (severe) obesity due to excess calories (principal) | CPT/HCPCS: 71046 ==

== ENCOUNTER 2024-11-03 13:52 | Outpatient (AMB) | payer OTHER, SELFPAY ==
--- NOTE | 2024-11-03 15:01 | A.OFFPC_ITS ---
Vital Signs 11/03/24 15:02 Height 5 ft 2 in Weight 319 lb 6 oz BMI 58.4 BP 120/88 Blood Pressure Location Rt brachial Position Sitting Respiration 14 Pulse 102 H Pulse Source Pulse Oximeter Temp 98.1 F Temp Source Oral Pulse Oximetry (%) 99 Oxygen Delivery Method Room Air Intake Visit Reasons: f/u diabetes Intake Note: patient is scheduled for dm follow up Yoga Teacher Required: No Allergies bee pollen (BEE STINGS) Allergy (Unknown, Verified 11/03/24 15:01) ANAPHYLAXIS bee sting Allergy (Unknown, Uncoded 10/22/24 14:32) anaphylaxis Medication List - Last Reconciled 11/03/24 by Vazquez Montilla MD albuterol sulfate 90 mcg/actuation 2 puffs inhalation Q4-6H PRN blood sugar diagnostic (FreeStyle Lite Strips) Use once daily As directed to check blood glucose blood-glucose meter (FreeStyle Lite Meter kit) Use daily As directed to check blood sugars cetirizine (Zyrtec) 10 mg PO DAILY clotrimazole 1% 1 appl topical BID 2 weeks desog-e.estradiol/e.estradiol 0.15-0.02 mgx21 /0.01 mg x 5 1 tab PO DAILY epinephrine (EpiPen) 0.3 mg (0.3 mL) IM Q4H PRN famotidine 20 mg PO BEDTIME 30 days fluticasone propionate 50 mcg/actuation (Flonase Allergy Relief) 2 sprays intranasal DAILY lancets (FreeStyle Lancets) use daily as directed to check blood glucose spironolactone (Aldactone) 75 mg (1.5 x 50 mg) PO QAM 90 days sumatriptan succinate mg PO tirzepatide (Mounjaro) 2.5 mg (0.5 mL) subcut QWEEK topiramate XR 50 mg PO DAILY Tobacco use date assessed: 07/15/24 Dental Screening Dental Screen Date: 07/15/24 HPI f/u diabetes HPI Details 29 y/o female presents to f/u diabetes. A1c had climbed from 6.6% to 7.9% last office visit. Continued Trulicity and added glipizide 5mg daily. Labs drawn 11/02/24. Reviewed labs with pt. A1c 7.5%. Triglycerides 264. TC 212. LDL 119. HDL 41. Vitamin D low at 13.6 ng/mL. She notes she is only taking mounjaro for her blood sugars. [facility] Medical History (Updated 11/03/24 @ 15:27 by Dakotah Ashley) Morbid obesity with BMI of 50.0-59.9, adult Asthma GERD (gastroesophageal reflux disease) PCOS (polycystic ovarian syndrome) Surgical History No pertinent past surgical history Family History Mother Scarlet fever Maternal Uncle Substance use disorder Maternal Grandmother Ovarian cancer Other Diabetes Social History (Updated 09/24/24 @ 09:47 by Marleny Darden CMA) Household Members: Family Both parents involved: Yes Caregiver staying overnight: No Housing: Apartment Are you a primary vehicle care specialist to a significant other at home: No Do you presently have visiting nurse or other home services: No 75 years or older and lives alone: No Alcohol intake: current Alcohol intake frequency: holidays/special occasions only Patient Tobacco Use Status: Former Tobacco user Years Smoked: 2 months in college e-Cigarette/Vaping Use: Currently Using Second Hand Smoke Exposure: No service: No Current occupational status: employed 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 Current occupational exposures/hazards: No Cognitive needs: No Hearing needs: No Vision needs: No Female Reproductive History Menstrual Age of Menarche: 9 Questionnaire Thrive Questionnaire Date Thrive assessed: 06/24/24 I am a: Patient What is your living situation today?: I have a steady place to live Within the past 12 months, did the food you bought not last and you didn't have the money to get more?: I choose not to answer this question Within the past 12 months, did you worry whether your food would run out before you got money to buy more?: I choose not to answer this question Do you have trouble paying for medicines?: I choose not to answer this question Do you have trouble getting transportation to medical appointments?: I choose not to answer this question Do you have trouble paying your heating and electricity bill?: I choose not to answer this question Do you have trouble taking care of your child, family member or friend?: I choose not to answer this question Do you have trouble with day-to-day activities such as bathing, preparing meals, shopping, managing finances, etc.?: I choose not to answer this question Are you currently unemployed and looking for a job?: I choose not to answer this question Are you interested in more education?: I choose not to answer this question Please select the resources that you would like help with: None Currently or been in a relationship where the following occur: No concerns reported THRIVE Score: 0 ALIA-7 AMB Questionnaire ALIA-7 Date ALIA - 7 assessed: 06/19/23 Source: Developed by Drs. Mauro Callaway, Justine Krishnan, Christiano June and colleagues, with an educational emelia from [employer]. Review of Systems Const Denies chills, Denies fatigue, Denies fever(s), Denies headache(s) and Denies weakness ENT Denies dizziness and Denies headache(s) Card Denies dyspnea Resp Denies cough, Denies dyspnea, Denies wheezing and Denies other (shortness of breath) Musc Denies numbness and Denies tingling Neuro Denies dizziness, Denies headache(s), Denies numbness, Denies tingling and Denies weakness Psych Denies anxiety and Denies depression Endo Denies fatigue Aller/Immun Denies wheezing Physical exam (Primary Care) Vital Signs: Last Vital Signs Temp 98.1 F 11/03/24 15:02 Pulse 102 H 11/03/24 15:02 Resp 14 11/03/24 15:02 BP 120/88 11/03/24 15:02 Pulse Ox 99 11/03/24 15:02 Oxygen Delivery Method Room Air 11/03/24 15:02 BMI result Body Mass Index 58.4 Tobacco/Smoking Status: Tobacco use Status Tobacco use date assessed 07/15/24 11/03/24 15:07 Patient Tobacco Use Status Former Tobacco user 11/03/24 15:07 e-Cigarette/Vaping Use Currently Using 11/03/24 15:07 Thrive Assessment: Date of Thrive Assessment Date Thrive assessed 06/24/24 11/03/24 15:07 Currently or been in a relationship where the following occur: No concerns reported Const General: well developed; No acute distress Nutritional Appearance: well nourished Orientation/consciousness: patient oriented x3 HENMT Head: Yes normocephalic and Yes atraumatic Eyes General: appearance normal, both eyes and all related structures Pupils: Equal, round and reactive pupils present EOM: EOMs intact bilaterally Resp Effort & Inspection: normal respiratory effort Auscultation: clear to auscultation bilaterally Cardio Rate: regular rate Rhythm: regular rhythm Heart sounds: S1 normal heart sound present, S2 normal heart sound present, no gallops, no murmurs and no rubs Neuro General: patient oriented x3 and gait normal Cranial nerves: Yes Equal, round and reactive pupils present Psych Affect: normal affect Coding Level of Care Code Est Pt Level 3 (20434) Diagnoses Diabetes E11.9 Hyperlipidemia E78.5 Low vitamin D level R79.89 Assessment & Plan Assessment & Plan (1) Diabetes: Code(s): E11.9 - Type 2 diabetes mellitus without complications Category: Medical Plan: A1c now 7.4%. Improving. Goal is less than 7.0% Now on Mounjaro Will give her a small dose of glipizide. She can discontinue this when her blood sugars are improved. Continue working at a diet low in sugars and starches Continue weight loss (2) Hyperlipidemia: Code(s): E78.5 - Hyperlipidemia, unspecified Category: Medical Plan: Lipids are improving. Triglycerides have significantly improved Continue weight loss and a diet lower in saturated fats and cholesterol (3) Low vitamin D level: Code(s): R79.89 - Other specified abnormal findings of blood chemistry Category: Medical Plan: She will take 2000 IU vitamin-D 3 daily Medications: New glipizide 5 mg PO DAILY 30 tabs 2RF 30 days cholecalciferol (vitamin D3) 50 mcg PO DAILY 90 caps 4RF 90 days
[2024-11-03 15:02] VITALS: BP 120/88; PULSE 102; RESP 14; TEMP 36.7; O2SAT 99; BMI 58.4
== END 2024-11-03 15:48 | disposition home or self-care (01) ==
LOC: HO.HMCFM 13:53
PROVIDERS: PCP Family Medicine; Visit Provider Family Medicine
DX: E11.9 Type 2 diabetes mellitus without complications (principal); E78.5 Hyperlipidemia, unspecified; R79.89 Other specified abnormal findings of blood chemistry

== ENCOUNTER → 2024-11-03 13:52 | Outpatient (BNVA) | payer OTHER, SELFPAY | PROVIDERS: PCP Family Medicine; Visit Provider Family Medicine | DX: E11.9 Type 2 diabetes mellitus without complications (principal); E78.5 Hyperlipidemia, unspecified; R79.89 Other specified abnormal findings of blood chemistry | CPT/HCPCS: 99212 ==

== ENCOUNTER 2024-11-15 07:09 | Outpatient (AMB) | payer OTHER, SELFPAY ==
--- NOTE | 2024-11-15 07:38 | A.OFFVIS_ITS ---
Intake Intake Visit Reasons: CGM Records Specialist Required: No Accompanied by: Self / Same As Patient Allergies bee pollen (BEE STINGS) Allergy (Unknown, Verified 11/03/24 15:01) ANAPHYLAXIS bee sting Allergy (Unknown, Uncoded 10/22/24 14:32) anaphylaxis HPI Comprehensive Diabetes Asmnt Most Recent Diabetes Results: Hemoglobin A1c 5.2 % 01/07/19 Cholesterol, (<200) 212 mg/dL H 11/02/24 HDL Cholesterol, (>40) 41 mg/dL 11/02/24 Triglycerides, (<150) 264 mg/dL H 11/02/24 Creatinine, (0.5-1.4) 0.61 mg/dL 11/02/24 BUN, (9-16) 13 mg/dL 11/02/24 Sodium, (135-145) 140 mmol/L 11/02/24 Potassium, (3.3-5.1) 3.8 mmol/L 11/02/24 Chloride, (96-108) 110 mmol/L H 11/02/24 Carbon Dioxide, (22-29) 23 mmol/L 11/02/24 Calcium, (8.4-10.2) 9.0 mg/dL 11/02/24 AST, (5-31) 26 U/L 11/02/24 ALT, (0-31) 22 U/L 11/02/24 Total Protein, (6.5-8.0) 6.9 g/dL 11/02/24 Albumin, (3.5-5.0) 4.1 g/dL 11/02/24 [facility] Medical History (Updated 11/06/24 @ 15:23 by Yair Joy MD) Morbid obesity with BMI of 50.0-59.9, adult Asthma GERD (gastroesophageal reflux disease) PCOS (polycystic ovarian syndrome) Surgical History No pertinent past surgical history Family History Mother Scarlet fever Maternal Uncle Substance use disorder Maternal Grandmother Ovarian cancer Other Diabetes Social History (Updated 09/24/24 @ 09:47 by Marleny Darden CMA) Household Members: Family Both parents involved: Yes Caregiver staying overnight: No Housing: Apartment Are you a primary human services care specialist to a significant other at home: No Do you presently have visiting nurse or other home services: No 75 years or older and lives alone: No Alcohol intake: current Alcohol intake frequency: holidays/special occasions only Patient Tobacco Use Status: Former Tobacco user Years Smoked: 2 months in college e-Cigarette/Vaping Use: Currently Using Second Hand Smoke Exposure: No service: No Current occupational status: employed 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 Current occupational exposures/hazards: No Cognitive needs: No Hearing needs: No Vision needs: No Female Reproductive History Menstrual Age of Menarche: 9 Assessment & Plan Assessment & Plan (1) Type 2 diabetes mellitus: Code(s): E11.9 - Type 2 diabetes mellitus without complications Qualifiers: Diabetes mellitus consumer safety officer insulin use: without shelter use Diabetes mellitus complication status: without complication Qualified Code(s): E11.9 - Type 2 diabetes mellitus without complications Plan: CGM Info Instructed Pt on what CGM can and can't do CGM Can: Give Pt minute by minute reading of glucose levels Displays glucose trend arrows that represents the direction glucose levels are fluctuating Give insight on decisions about how to dose insulin CGM cannot: Improve glucose control on its own Completely eliminate the need for all finger sticks Make dosing decision for you CGM is the reading of glucose in the interstitial fluid not actual blood glucose, finger sticks are still necessary when Pt's symptom?s do not match sensor reading and if sensors prompts Pt to do a fingerstick Patient? is wearing Frandy 3+ sensor sample Instructed patient sensors water proof you can shower, or swim do not submerge sensor in water for over 30 minutes Is sensor falls off cannot put back in you need to replace sensor, customer service number given to patient for sensor replacement Sensor placed on the back of right arm Patient left visit with sensor in warmup Patient recently started glipizide 5 mg daily, instructed patient and is important to he carbohydrate after taking glipizide prevent hypoglycemia In transitioned from Trulicity to Mounjaro 5 mg weekly Reviewed the following: Signs and symptoms of low blood sugar (happen quickly) Each person's reaction to low blood sugar is different. Learn your own signs and symptoms of when your blood sugar is low. Taking time to write these symptoms down may help you learn your own symptoms of when your blood sugar is low. From milder, more common indicators to most severe, signs and symptoms of low blood sugar include: Feeling shaky Being nervous or anxious Sweating, chills and clamminess Irritability or impatience Confusion Fast heartbeat Feeling lightheaded or dizzy Hunger Nausea Color draining from the skin (pallor) Feeling Sleepy Feeling weak or having no energy Blurred/impaired vision Tingling or numbness in the lips, tongue, or cheeks Headaches Coordination problems, clumsiness Hypoglycemia or blood glucose under 70 mg/dL use the rule of 15's: If you have your blood glucose meter test your blood glucose, if you do not have your meter still follow below instruction: Keep quick-sugar foods with you at all times.? Take 15 grams of fast acting carbohydrates. Examples are 4 ounces of fruit juice or regular soda pop, 8 ounces fat-free milk, 1 tablespoon of table sugar, honey or corn syrup, jam, one miniature box of raisins, 7-8 gumdrops or Life Savers candy, 4 glucose tablets, and glucose gel.? Retest blood glucose in 15 minutes, if blood glucose is still under 80 mg/dL,repeat rule of 15's. If blood glucose is under 50, take 30 grams of fast acting carbohydrates If you are having hypoglycemia, or insulin reaction, more that a few times a week, call MD or bradley linebacker crewmember F/U BG check Reviewed how to interpret trend arrows Discussed lag time between finger stick and sensor data.? Instructed patient the importance of having blood glucometer for backup testing if needed Reviewed delay of CGM from fingersticks Reminded Pt that if symptoms do not match sensor still needs to check fingersticks. Portions of this note were created using voice recognition software, please excuse any words or phrases that may have been misinterpreted. Patient Instructions: Patient instruction: CGM provides information on blood glucose control throughout the day, including hyperglycemia and hypoglycemia. ? Continue to monitor blood glucose as instructed. Follow nutrition guidelines provided. Report any discomfort promptly to health care provider. ?Stay well-hydrated. You can bathe ,shower, swim and exerce while wearing the glucose sensor. Do not submerge glucose sensor in water for more than 30 minutes. Remove sensor for MRI or CAT scan. Avoid Xray machine in airports - remove sensor or request wand Patient will follow-up with bradley linebacker crewmember in 3 weeks Coding Level of Care Code Est Pt Level 1 (11916) Diagnoses Type 2 diabetes mellitus without complication, without long-term current use of insulin E11.9 Diabetes mellitus consumer safety officer insulin use: without consumer safety officer use Diabetes mellitus complication status: without complication
== END 2024-11-15 07:45 | disposition home or self-care (01) ==
LOC: HO.ENCR 07:10
PROVIDERS: PCP Family Medicine; Visit Provider Registered Nurse Diabetes Educator
DX: E11.9 Type 2 diabetes mellitus without complications (principal)

== ENCOUNTER → 2024-11-15 07:09 | Outpatient (BNVA) | payer OTHER, SELFPAY | PROVIDERS: PCP Family Medicine; Visit Provider Registered Nurse Diabetes Educator | DX: E11.9 Type 2 diabetes mellitus without complications (principal); Z79.84 Long term (current) use of oral hypoglycemic drugs | CPT/HCPCS: 99211 ==

== ENCOUNTER 2024-11-19 11:29 | Outpatient (AMB) | payer OTHER, SELFPAY ==
--- NOTE | 2024-11-19 12:10 | A.OFFWM_ITS ---
Intake Intake Visit Reasons: OV BH Intake Allergies bee pollen (BEE STINGS) Allergy (Unknown, Verified 12/13/24 06:56) ANAPHYLAXIS bee sting Allergy (Unknown, Uncoded 12/13/24 06:56) anaphylaxis [facility] Medical History (Updated 12/13/24 @ 07:07 by Rena Stewart RN) History of flexible sigmoidoscopy Morbid obesity with BMI of 50.0-59.9, adult Asthma GERD (gastroesophageal reflux disease) PCOS (polycystic ovarian syndrome) Family History Mother Scarlet fever Maternal Uncle Substance use disorder Maternal Grandmother Ovarian cancer Other Diabetes Social History (Updated 09/24/24 @ 09:47 by Marleny Darden CMA) Household Members: Family Household Members Other:: mother, father, brother Housing: Apartment Are you a primary laboratory animal caretaker to a significant other at home: No Do you presently have visiting nurse or other home services: No Alcohol intake: current Alcohol intake frequency: holidays/special occasions only Patient Tobacco Use Status: Current someday Tobacco user Tobacco use type: Smokeless Tobacco Years Smoked: 2 months in college Smoked in Last 30 Days: Yes e-Cigarette/Vaping Use: Currently Using Patient Interested in Nicotine Replacement: No Second Hand Smoke Exposure: No Have you been hit, kicked, punched, or otherwise hurt by someone within the past year? 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 Current occupational exposures/hazards: No Cognitive needs: No Hearing needs: No Vision needs: No Female Reproductive History Menstrual Age of Menarche: 9 Behavioral Health Assessment Weight Management Therapy Therapy Notes Details PT is a 29 years old female, who presents for initial visit to start BH assessment as part of surgical weight loss program. Presenting Concerns Referral Source WMP-Provider Reason for referral Completion of behavioral health assessment as part of process for weight-loss surgery. Precipitating Event Obesity. Living Situation Current Living Situation Relative's/Guardian's Tom At risk of losing current housing? No Satisfied with current living situation? Yes Comments PT lives with her parents, brother and 3 dogs. Social History Family history and relationship PT is single, never , doesn't have children. Parents are , she had 2 siblings, 1 in 2013. PT lives with her parents and her 27 y/o brother. Here in the are she has 1 aunt and 2 cousins, rest of her family is in [place] and [place]. PT reports she has great family dynamics. Parental/Familial bin cleaner obligations None. Developmental history and status PT had an IEP for ESL. Currently WNL. Social support Parents, her brother, a close uncle, a close friend, her cousins. Community support PCP Denominational/Spirituality None. Cultural/Ethnic information . She was born in [place], been [place] the [place] age 6. Legal Involvement and History Current or historical involvement with the legal system? None reported. Education Highest grade completed HS - Certificate for [employer] Leader. Preferred learning style Learn by doing and Visual Currently enrolled in educational program? No Interested in further educational program? No Educational Interests/Skills Likes studio receptionist work. 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 ) Wants help to find employment? No Meaningful activities Reading, listen to music, hang out with friends. Financial Situation Describe current financial situation Occasional struggle Financial assistance? None Service Service? No Mental Health and Addiction Treatment Current/Past substance abuse? No Comments Alcohol: Social, 1-2 month. When drinks have 1-2 drinks. Cigarettes/Tobacco: No cigarettes. Vape: every couple months. Cannabis/Edibles: None. Current/Past addictive behavior concerns? No Psychiatric history The patient attended therapy as a child around age 9, brought in by her parents, though she does not recall the specific reason for counseling at that time. She reports a history of trauma at age 17 (in 2013). Following this, she was prescribed sertraline, which she took for a period of time. She discontinued all psychiatric medications two years ago, noting improvement in her mental health since then. The patient denies any current or past suicidal ideation, suicide attempts, self-harm behaviors, or thoughts of harm to others. Medical and Physical Health Summary Additional Medical History not covered in history None aditional Sexual History concerns None reported. Physical exam in the last year? Yes Pain Screening Current pain? Yes Pain in the last few months? Yes Comments Back pain. Medications Is the patient compliant with medications? Yes (Not taking Topiramate. ) Does the patient have Beltran Guardian in place? Not applicable Does the patient use complimentary health approaches? No Trauma/Abuse History History of trauma? Yes Other Past Questionnaires PHQ-9 Over the last 2 weeks, how often have you been bothered by any of the following problems? 1. Little interest or pleasure in doing things: several days 2. Feeling down, depressed, or hopeless: not at all 3. Trouble falling or staying asleep, or sleeping too much: nearly every day 4. Feeling tired or having little energy: nearly every day 5. Poor appetite or overeating: not at all 6. Feeling bad about yourself - or that you are a failure or have let yourself or your family down: several days 7. Trouble concentrating on things, such as reading the newspaper or watching television: not at all 8. Moving or speaking so slowly that other people could have noticed. Or the opposite - being so fidgety or restless that you have been moving around a lot more than usual: not at all 9. Thoughts that you would be better off or of hurting yourself in some way: not at all Total score: 8 Depression Screening Interpretation: Positive (From new PT pack completed on 09/24) Depression Screening Done: Yes Source: Developed by Drs. Mauro Callaway, Justine Krishnan, Christiano June and colleagues, with an educational emelia from [employer]. Binge Eating Scale Group 1 A. I don't feel self-conscious about my wt. or body size when I'm with others. B. I feel concerned about how I look to others, but it normally does not make me fell disappointed with myself C. I do get self-conscious about my appearance and wt. which makes me feel disappointed in myself. D. I feel very self-conscious about my wt. and frequently I feel intense shame and disgust for myself. I try to avoid social contacts because of my self- consciousness. Response Group 1: C Group 2 A. I don't have any difficulty eating slowly in the proper manner. B. Although I seem to gobble down foods, I don't end up feeling stuffed because of eating to much. C. At times, I tend to eat quickly and then, I feel uncomfortably full afterwards. D. I have the habit of bolting down my food, without really chewing it. When this happens I usually feel uncomfortably stuffed because I've eaten to much. Response Group 2: B Group 3 A. I feel capable to control my eating urges when I want to. B. I feel like I have failed to control my eating more than the average person. C. I feel utterly helpless when it comes to feeling in control of my eating urges. D. Because I feel so helpless about controlling my eating I have become very desperate about trying to get control. Response Group 3: C Group 4 A. I don't have the habit of eating when I'm bored. B. I sometimes eat when I'm bored, but often I'm able to get busy and get my mind off food. C. I have a regular habit of eating when I'm bored, but occasionally, I can use some other activity to get my mind off eating. D. I have a strong habit of eating when I'm bored. Nothing seems to help me breath the habit. Response Group 4: D Group 5 A. I'm usually physically hungry when I eat something. B. Occasionally, I eat something on impulse even though I really am not hungry. C. I have the regular habit of eating foods, that I might not really enjoy, to satisfy a hungry feeling even though physically, I don't need the food. D. Although I'm not physically hungry, I get a hungry feeling in my mouth that only seems to be satisfied when I eat a food, like sandwich, that fills my mouth. Sometimes, when I eat the food to satisfy my mouth hunger, I then spit the food out so I won't gain weight. Response Group 5: B Group 6 A. I don't feel any guilt or self-hate after I overeat. B. After I overeat, occasionally I feel guilt or self-hate. C. Almost all the time I experience strong guilt or self-hate after I overeat. Response Group 6: C Group 7 A. I don't lose total control of my eating when dieting even after periods when I overeat. B. Sometimes when I eat a forbidden food on a diet, I feel like I blew it and eat even more. C. Frequently, I have the habit of saying to myself, I've blown it now, why not go all the way, when I overeat on a diet. When that happens I eat more. D. I have a regular habit of starting a strict diets for myself but I break the diets by going on an eating binge. My life seems to be either a feast or famine. Response Group 7: D Group 8 A. I rarely eat so much food that I feel uncomfortably stuffed afterwards. B. Usually about once a month, I each such a quantity of food, I end up feeling very stuffed. C. I have regular periods during the month when I eat large amounts of food, either at mealtime or at snacks. D. I eat so much food that I regularly feel quite uncomfortable after eating and sometimes a bit nauseous. Response Group 8: D Group 9 A. My level of calorie intake does not go up very high or go down very low on a regular basis. B. Sometimes after I overeat, I will try to reduce my caloric intake to almost nothing to compensate for the excess calories I've eaten. C. I have a regular habit of overeating during the night. It seems that my routine is not to be hungry in the morning but overeat in the evening. D. In my adult years, I have had week-long periods where I practically starve myself. This follows periods when I overeat. It seems I live a life of either feast or famine. Response Group 9: C Group 10 A. I usually am able to stop eating when I want to. I know when enough is enough. B. Every so often, I experience a compulsion to eat which I can't seem to control. C. Frequently, I experience strong urges to eat which I seem unable to control, but at other times I can control my eating urges. D. I feel incapable of controlling urges to eat. I have a fear of not being able to stop eating voluntarily. Response Group 10: C Group 11 A. I don't have any problem stopping eating when I feel full. B. I usually can stop eating when I feel full but occasionally overeat leaving me feeling uncomfortably stuffed. C. I have a problem stopping eating once I start and usually I feel uncomfortably stuffed after I eat a meal. D. Because I have a problem not being able to stop eating when I want, I sometimes have to induce vomiting to relieve my stuffed feeling. Response Group 11: C Group 12 A. I seem to eat just as much when I'm with others, Family social gatherings as when I'm by myself. B. Sometimes, when I'm with other persons, I don't eat as much as I want to eat because I'm self-conscious about my eating. C. Frequently, I eat only a small amount of food when others are present, lisbeth use I'm very embarrassed about my eating. D. I feel so ashamed about overeating that I pick times to overeat when I know no one will see me. I feel like a closet eater. Response Group 12: C Group 13 A. I eat three meals a day with only an occasional between meal snack. B. I eat 3 meals a day, but I also normally snack between meals. C. When I am snacking heavily, I get in the habit of skipping regular meals. D. There are regular periods when I seem to be continually eating, with no planned meals. Response Group 13: D Group 14 A. I don't think much about trying to control unwanted eating urges. B. At least some of the time, I feel my thoughts are pre-occupied with trying to control my eating urges. C. I feel that frequently I spend much time thinking about how much I ate or about trying not to eat anymore. D. It seems to me that most of my waking hours are pre-occupied by thoughts about eating or not eating. I feel like I'm constantly struggling not to eat. Response Group 14: D Group 15 A. I don't think about food a great deal. B. I have strong craving for food but they last only for brief periods of time. C. I have days when I can't seem to think about anything else but food. D. Most of my days seem to be pre-occupied with thoughts about food. I feel like I live to eat. Response Group 15: B Group 16 A. I usually know whether or not I'm physically hungry. I take the right portion of food to satisfy me. B. Occasionally, I feel uncertain about knowing whether or not I'm physically hungry. A these times it's hard to know how much food I should take to satisfy me. C. Even though I might know how many calories I should eat, I don't have any idea what is a normal amount of food for me. 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 Patient will return in 2?4 weeks to continue the assessment process. Next appointment is scheduled for 12/13/24 at 9:00 am via telehealth. At next visit: * Repeat Binge Eating Scale (BES) will be administered at the next visit to reassess eating behaviors and treatment needs. * A new PHQ-9 will also be completed to obtain an updated measure of depressive symptoms. Coding Level of Care Code New Pt Psy Diag Eval (38629) Patient Type New Diagnoses Trauma and stressor-related disorder F43.9 Inappropriate diet or eating habits Z72.4 Pre-bariatric surgery psychological evaluation Z71.89 Time Spent (min) 50
== END 2024-11-19 13:05 | disposition home or self-care (01) ==
LOC: HO.HBST 11:30
PROVIDERS: PCP Family Medicine; Visit Provider Counselor Mental Health
DX: F43.9 Reaction to severe stress, unspecified (principal); Z72.4 Inappropriate diet and eating habits; Z71.89 Other specified counseling
CPT/HCPCS: 90791

== ENCOUNTER → 2024-12-06 07:39 | Outpatient (REF) | payer OTHER, SELFPAY ==
--- NOTE | 2024-12-06 07:43 | CA_ITS ---
Acquisition Time: 2024-12-06 07:51:36 Total Exercise Time: 00:04:41 Test Indications: ABN EKG Medications: SEE H&P Protocol: FAVIAN Max HR: 176 BPM 92% of Pred: 190 BPM Max BP: 160/78 mmHG Max Work Load: 6.6 METS Exercise stress test with exercise 4 mins 41 secs of Favian Protocol, achieving 92% MPHR, with reports of SOB requesting to stop, no chest pain, with isolated PVCs, with normotensive response to exercise. Without any EKG changes meeting criteria for ischemia. In recovery, pt's breathing returned to baseline. Test reviewed with Dr. Chapin. Referred By: Yair Joy Electronically Signed By: Juancho Narvaez
== END ==
LOC: HO.CARD 07:39
PROVIDERS: PCP Family Medicine; Visit Provider Surgery
DX: R94.31 Abnormal electrocardiogram [ECG] [EKG] (principal)
CPT/HCPCS: 93017

== ENCOUNTER → 2024-12-06 07:43 | Outpatient (BNV) | payer OTHER, SELFPAY | PROVIDERS: PCP Family Medicine | DX: I49.3 Ventricular premature depolarization (principal); R06.02 Shortness of breath | CPT/HCPCS: 93016; 93018 ==

== ENCOUNTER 2024-12-13 06:42 | Day surgery (SDC) | payer OTHER, SELFPAY ==
[2024-11-22 08:22] VITALS: BMI 57.4
--- NOTE | 2024-11-23 10:32 | P.CONAN_ITS ---
Documented by User: Cristal Rivas NP 11/23/24 10:33 HPI - Anesthesia Eval Consult details Narrative: 29 yr old female for upper endoscopy BMI 57 Type 2 DM: A1C 7.5% Anesthesia Pre-Procedure Meds Is the patient on any of the following meds?: GLP1/DPP4 PMFSH Active Problems Active Problems: All Active Problems (Updated 11/06/24 @ 15:23 by Yair Joy MD) Abnormal EKG (Acute) Vitamin B12 deficiency (Acute) Vitamin D deficiency (Acute) Diabetes (Acute) Morbid obesity with BMI of 50.0-59.9, adult (Acute) Asthma (Acute) GERD (gastroesophageal reflux disease) (Acute) Fungal infection of skin (Acute) Morbid obesity (Acute) Numbness and tingling of lower extremity (Acute) Hx of migraines (Acute) Excessive daytime sleepiness (Acute) Wheezing (Acute) Viral URI with cough (Acute) Migraine (Acute) Family hx of ovarian malignancy (Acute) Family history of BRCA gene mutation (Acute) Family hx-breast malignancy (Acute) Pain of both breasts (Acute) Viral lower respiratory tract infection (Acute) Vision changes (Acute) Rash (Acute) Encounter for screening involving social determinants of health (SDoH) (Acute) Empty sella turcica (Acute) Elevated blood pressure reading in office without diagnosis of hypertension (Acute) Sudden visual loss of left eye (Acute) Vision loss, left eye (Acute) Type 2 diabetes mellitus (Acute) Hirsutism (Acute) Anovulatory amenorrhea (Acute) Morbid obesity with BMI of 60.0-69.9, adult (Acute) Difficulty breathing (Acute) Sore throat (Acute) PPD screening test (Acute) Pap smear for cervical cancer screening (Acute) Physical exam, annual (Acute) Pre-diabetes (Acute) Hyperlipidemia (Acute) Left shoulder pain (Acute) Immunization counseling (Acute) Tension headache (Acute) Heel pain (Acute) Urinary frequency (Acute) Cough (Acute) Low vitamin D level (Acute) PCOS (polycystic ovarian syndrome) (Acute) Elevated TSH (Acute) Hypertriglyceridemia (Acute) Screening for cervical cancer (Acute) Elevated fasting glucose (Acute) Adult general medical exam (Acute) Depression with anxiety (Acute) Headache (Acute) Suicidal ideations (Acute) PCOS (polycystic ovarian syndrome) (Acute) Sleep apnea (Acute) Obesity (Acute) Laboratory examination ordered as part of a routine general medical examination (Acute) Fatigue (Acute) Past Medical History Medical History (Updated 12/13/24 @ 07:07 by Rena Stewart RN) History of flexible sigmoidoscopy Morbid obesity with BMI of 50.0-59.9, adult Asthma GERD (gastroesophageal reflux disease) PCOS (polycystic ovarian syndrome) Family History Family History Mother Scarlet fever Maternal Uncle Substance use disorder Maternal Grandmother Ovarian cancer Other Diabetes Social History Social History (Updated 09/24/24 @ 09:47 by Marleny Darden CMA) Household Members: Family Household Members Other:: mother, father, brother Housing: Apartment Are you a primary specialist wound care to a significant other at home: No Do you presently have visiting nurse or other home services: No Alcohol intake: current Alcohol intake frequency: holidays/special occasions only Patient Tobacco Use Status: Current someday Tobacco user Tobacco use type: Smokeless Tobacco Years Smoked: 2 months in college Smoked in Last 30 Days: Yes e-Cigarette/Vaping Use: Currently Using Patient Interested in Nicotine Replacement: No Second Hand Smoke Exposure: No Have you been hit, kicked, punched, or otherwise hurt by someone within the past year? 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 Current occupational exposures/hazards: No Cognitive needs: No Hearing needs: No Vision needs: No Meds Allergies Allergy/AdvReac Type Severity Reaction Status Date / Time bee pollen (BEE STINGS) Allergy Unknown ANAPHYLAXIS Verified 12/13/24 06:56 bee sting Allergy Unknown anaphylaxis Uncoded 12/13/24 06:56 Home Medications ?Medication ?Instructions ?Recorded ?Confirmed ?Last Taken ?Type topiramate 50 mg capsule,extended 50 mg PO DAILY 06/2412/13/24 Unknown History release 24 hr Exam Height,Weight and Vital Signs: Height 5 ft 2 in Weight 142.428 kg Documented by User: Shakila Hanson MD 12/13/24 07:10 [facility] Past Medical History Medical History (Updated 12/13/24 @ 07:07 by Rena Stewart, RN) History of flexible sigmoidoscopy Morbid obesity with BMI of 50.0-59.9, adult Asthma GERD (gastroesophageal reflux disease) PCOS (polycystic ovarian syndrome) Family History Family History Mother Scarlet fever Maternal Uncle Substance use disorder Maternal Grandmother Ovarian cancer Other Diabetes Family history of problems with anesthesia: No Surgical History History of Problems with Anesthesia: No Social History Social History (Updated 09/24/24 @ 09:47 by Marleny Darden [facility]) Household Members: Family Household Members Other:: mother, father, brother Housing: Apartment Are you a primary specialist wound care to a significant other at home: No Do you presently have visiting nurse or other home services: No Alcohol intake: current Alcohol intake frequency: holidays/special occasions only Patient Tobacco Use Status: Current someday Tobacco user Tobacco use type: Smokeless Tobacco Years Smoked: 2 months in college Smoked in Last 30 Days: Yes e-Cigarette/Vaping Use: Currently Using Patient Interested in Nicotine Replacement: No Second Hand Smoke Exposure: No Have you been hit, kicked, punched, or otherwise hurt by someone within the past year? 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 Current occupational exposures/hazards: No Cognitive needs: No Hearing needs: No Vision needs: No Meds Allergies Allergy/AdvReac Type Severity Reaction Status Date / Time bee pollen (BEE STINGS) Allergy Unknown ANAPHYLAXIS Verified 12/13/24 06:56 bee sting Allergy Unknown anaphylaxis Uncoded 12/13/24 06:56 Home Medications ?Medication ?Instructions ?Recorded ?Confirmed ?Last Taken ?Type topiramate 50 mg capsule,extended 50 mg PO DAILY 06/2412/13/24 Unknown History release 24 hr Exam Airway Mallampati Class: III (thick neck) TM Dist: >3cm Neck ROM: Full Heart: rrr Lungs: cta Assessment and Plan Assessment Anesthesia Assessment: Anesthesia Plan Discussed and Chart Reviewed Final Anesthetic Review Family History of Problems with Anesthesia: No History of Problems with Anesthesia: No NPO: Yes ASA Class: III Final Preanesthetic Review: No Changes in Pt Med Stat, Meds/Allgs Chart Reviewed and Consent Obtained/Reviewed Patient Risk: Intermediate Procedure Risk: Intermediate Anesthetic Plan Anesthetic Plan: MAC: Disposition: Standard PACU
[2024-12-13 06:45] VITALS: BMI 57.9
[2024-12-13] MEDS: Lactated Ringers 1,000 ML 100 ML IVCONT (06:46)
[2024-12-13 07:02] VITALS: BP 144/80; PULSE 100; RESP 18; TEMP 36.8; O2SAT 99
[2024-12-13 07:06] LABS: UPreg QC Valid YES
[2024-12-13 07:10] LABS: Glucose, Whole Blood 152 mg/dL (60-115)
--- NOTE | 2024-12-13 07:32 | MHC.SHP ---
Pre-Procedural Eval Section A - 24 Hr Update-Section A only Date of Service: 12/13/24 The patient is an INPATIENT: No The patient has been examined within 24 hours of the surgical procedure. The History & Physical has been completed within 30 days and I have reviewed it.: Yes Section B - Complete if H&P > 30 days Chief Complaint: Morbid (severe) obesity due to excess calories Details of Present Illness: GERD Relevant Family History (Specify if Yes): No Relevant Social History: None Present Medications: None Medical History: No relevant PMH History of Previous Operations: No relevant previous surgery Allergies: Allergies Allergy/AdvReac Type Severity Reaction Status Date / Time bee pollen (BEE STINGS) Allergy Unknown ANAPHYLAXIS Verified 12/13/24 06:56 bee sting Allergy Unknown anaphylaxis Uncoded 12/13/24 06:56 Review of Systems Sugical H&P ROS: Negative: Constitution, Cardiovascular, Respiratory, Neurological, Psychiatric, Hem-Onc, Allergic/Immunologic, Gastrointestinal, Genitourinary, Musculoskeletal, Integumentary, Endocrine and Eyes/Ears/Nose/Throat Exam Surgical H&P Exam: Normal: HEENT, Normal: Heart, Normal: Lungs, Normal: Extremities, Normal: Abdomen, Normal: Skin and Normal: Neurological Plan Diagnosis/Plan: Unchanged (EGD to assess etiology of GERD. Risks of bleeding and perforation were discussed with the patient and she is in agreement with the plan.) I have reviewed the history and physical and performed a pertinent physical examination on my patient. No changes have occurred unless specified. Time Spent With Patient Time: Total time managing care of this patient today ____ minutes.
--- NOTE | 2024-12-13 07:33 | P.BOP_ITS ---
Brief Operative Note Date of Service: 12/13/24 Pre-op diagnosis: GERD Post-op diagnosis: same Procedure: PROCEDURE DATE: 12/13/2024 PREOPERATIVE DIAGNOSIS: GERD POSTOPERATIVE DIAGNOSIS: ?Same as above. Esophagitis PROCEDURE: [id number] with biopsies Surgeon: ?Aj Joy M.D.. Ph.D. Soil Science Professor: None ? Anesthesia: IV sedation Estimated blood loss: ?Minimal FINDINGS AND PROCEDURE: ? OPERATIVE INDICATIONS: ?The patient is a 29 year old female known to me who is interested in bariatric surgery. The patient has GERD. Based on this information I recommended an upper endoscopy to evaluate the patient's symptoms. Risks and complications of the surgery were discussed with the patient in advance particularly the possibility of perforation or bleeding that may require surgical intervention. The patient understood the risks and was in agreement with the plan. ? PROCEDURE: After informed consent was obtained by the patient, the patient was ?transferred to the Operating Room and was placed in the supine position.? After successful induction of IV sedation, a mouth block was inserted and the patient was placed in the left lateral decubitus position. An upper endoscopy was performed next, the oropharynx and esophagus appeared within the normal limits. There was no hiatal hernia. The z-line was irregular with tongues of gastric mucosa protruding into the esophagus. Two biopsies were obtained from the distal esophagus 2-3 cm proximal to the GE junction and two additional biopsies from the GE junction. The stomach was entered and it appeared to be of normal size. There was no gastritis. There was no stricture or ulcer. A biopsy was obtained from the gastric fundus and the antrum. No significant bleeding was noted from any of the biopsy sites. Retroflexion of the scope confirmed the presence of a normal GE junction. The scope was then advanced into the duodenum which appeared to be normal as well. At that point the duodenum ?and the stomach were decompressed and the scope was withdrawn from the patient's mouth. The patient extubated and was transferred in stable condition to the Recovery Room for further care. I was present and performed all steps of the procedure. There were no residents to assist with this case. Aj Joy M.D., Ph.D. Surgeon: Yair Joy MD Anesthesia: MAC Was an Soil Science Professor used for this Procedure?: No Estimated blood loss (mL): 0 IV fluids (mL): 400 Urine output (mL): 0 (No Hicks to record output) Pathology: other (1) antrum x1, 2) fundus x1, 3) GE junction x2, 4) distal esophagus x2) Condition: stable Disposition: PACU
[2024-12-13 07:58] VITALS: BP 122/64; PULSE 88; RESP 18; TEMP 36.8; O2SAT 97
[2024-12-13 08:13] VITALS: BP 122/77; PULSE 78; RESP 21; TEMP 36.4; O2SAT 98
== END 2024-12-13 08:51 | disposition home or self-care (01) ==
PROVIDERS: Nurse Practitioner; PCP Family Medicine; Visit Provider Surgery
PROC: 0DJ08ZZ Inspection of Upper Intestinal Tract, Via Natural or Artificial Opening Endoscopic (ICD-10-PCS; CPT 43235; principal; 2024-12-13 07:30)
DX: K21.9 Gastro-esophageal reflux disease without esophagitis (principal); E66.01 Morbid (severe) obesity due to excess calories; Z68.43 Body mass index [BMI] 50.0-59.9, adult; K20.80 Other esophagitis without bleeding; E11.9 Type 2 diabetes mellitus without complications; J45.909 Unspecified asthma, uncomplicated; E28.2 Polycystic ovarian syndrome; Z79.85 Long-term (current) use of injectable non-insulin antidiabetic drugs; Z79.899 Other long term (current) drug therapy; Z87.891 Personal history of nicotine dependence
CPT/HCPCS: 43239; 81025; 82947; 88305; 88313; 88342; J2003; J2704

== ENCOUNTER → 2024-12-13 06:42 | Outpatient (BNV) | payer OTHER, SELFPAY | PROVIDERS: PCP Family Medicine; Visit Provider Surgery | DX: K21.9 Gastro-esophageal reflux disease without esophagitis (principal); K20.90 Esophagitis, unspecified without bleeding | CPT/HCPCS: 43239 ==

== ENCOUNTER 2024-12-20 07:43 | Outpatient (AMB) | payer OTHER, SELFPAY ==
--- NOTE | 2024-12-20 08:07 | MHC.AMDMED ---
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: No Accompanied by: Self / Same As Patient Allergies bee pollen (BEE STINGS) Allergy (Unknown, Verified 12/13/24 06:56) ANAPHYLAXIS bee sting Allergy (Unknown, Uncoded 12/13/24 06:56) anaphylaxis [facility] Medical History (Updated 12/13/24 @ 07:07 by Rena Stewart RN) History of flexible sigmoidoscopy Morbid obesity with BMI of 50.0-59.9, adult Asthma GERD (gastroesophageal reflux disease) PCOS (polycystic ovarian syndrome) Family History Mother Scarlet fever Maternal Uncle Substance use disorder Maternal Grandmother Ovarian cancer Other Diabetes Social History (Updated 09/24/24 @ 09:47 by Marleny Darden CMA) Household Members: Family Household Members Other:: mother, father, brother Housing: Apartment Are you a primary family day care provider to a significant other at home: No Do you presently have visiting nurse or other home services: No Alcohol intake: current Alcohol intake frequency: holidays/special occasions only Patient Tobacco Use Status: Current someday Tobacco user Tobacco use type: Smokeless Tobacco Years Smoked: 2 months in college e-Cigarette/Vaping Use: Currently Using Second Hand Smoke Exposure: No service: No Current occupational status: employed 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 Current occupational exposures/hazards: No Cognitive needs: No Hearing needs: No Vision needs: No Female Reproductive History Menstrual Age of Menarche: 9 Assessment & Plan Assessment & Plan (1) Type 2 diabetes mellitus: Code(s): E11.9 - Type 2 diabetes mellitus without complications Qualifiers: Diabetes mellitus chcf insulin use: without regional intermodal truck driver use Diabetes mellitus complication status: without complication Qualified Code(s): E11.9 - Type 2 diabetes mellitus without complications Plan: Patient at visit to set up an insert new Frandy 3 sample sensor with phone brandi Patient only had 6 hours worth of data on last sample, reports that sensor fell off CGM is the reading of glucose in the interstitial fluid not actual blood glucose, finger sticks are still necessary when Pt's symptom?s do not match sensor reading and if sensors prompts Pt to do a fingerstick Instructed patient sensors water proof you can shower, or swim do not submerge sensor in water for over 30 minutes Is sensor falls off cannot put back in you need to replace sensor, customer service number given to patient for sensor replacement Sensor placed on the back of right arm Patient left visit with sensor in warmup Reviewed how to interpret trend arrows Discussed lag time between finger stick and sensor data.? Instructed patient the importance of having blood glucometer for backup testing if needed Reviewed delay of CGM from fingersticks Reminded Pt that if symptoms do not match sensor still needs to check fingersticks. Patient is currently on Mounjaro 7.5 mg weekly Reviewed info below: Insulin/Injectables (If applicable) Storage/care of insulin?? Injection sites? Site rotation? Onset, peak, duration Drawing up insulin? Injecting insulin/other injectables? Sharps disposalContinuous blood glucose monitoring (if applicable) Portions of this note were created using voice recognition software, please excuse any words or phrases that may have been misinterpreted. Patient Instructions: Follow-up in 15 days for glucose data review Coding Level of Care Code Est Pt Level 1 (14594) Diagnoses Type 2 diabetes mellitus without complication, without long-term current use of insulin E11.9 Diabetes mellitus regional intermodal truck driver insulin use: without chcf use Diabetes mellitus complication status: without complication
== END 2024-12-20 08:09 | disposition home or self-care (01) ==
PROVIDERS: PCP Family Medicine; Visit Provider Registered Nurse Diabetes Educator
DX: E11.9 Type 2 diabetes mellitus without complications (principal)

== ENCOUNTER 2024-12-20 08:16 | Outpatient (REF) | payer OTHER, SELFPAY ==
--- NOTE | ~2024-12-20 | US_ITS ---
EXAMINATION: US ABDOMEN COMPLETE WITH LIVER ELASTOGRAPHY HISTORY: E66.01 - Morbid (severe) obesity due to excess calories TECHNIQUE: Real-time grayscale ultrasound imaging of the abdomen was performed and images were reviewed. COMPARISON: There are no prior studies available for comparison. FINDINGS: Liver: The right lobe of the liver measures 18.6 cm in size. The left lobe of the liver measures 12.4 cm in size. The liver demonstrates increased echotexture, consistent with steatosis. No focal mass or intrahepatic biliary ductal dilatation is identified. There is normal hepatopedal flow in the portal vein. Ultrasound elastography of the liver was performed with 10 separate measurements of the liver parenchyma with the patient in the supine position. Measurements were obtained approximately 2 cm below Ayla's capsule and perpendicular to the capsule. The median shear wave velocity is 1.36 m/s. The interquartile range/median (IQR/median) is 0.13. Gallbladder and biliary tree: The gallbladder is unremarkable, without evidence of calculi, wall thickening, or pericholecystic fluid. There is no sonographic Edmondson sign. The common bile duct is normal in caliber measuring 3 mm. Kidneys: The right kidney measures 11.0 cm in length. The left kidney measures 11.0 cm in length. The kidneys are unremarkable, without evidence of masses, hydronephrosis, or calculi. Pancreas: The pancreatic head, neck, and body are unremarkable. The pancreatic tail is obscured by bowel gas. Spleen: The spleen is normal in size and contour, measuring 9.8 cm in length. Abdominal aorta and inferior vena cava: The visualized portions of the abdominal aorta and inferior vena cava are normal in caliber. There is no free fluid in the abdomen. US/US abdomen comp w elastography IMPRESSION: Hepatomegaly and hepatic steatosis. The median shear wave velocity in the liver is 1.36 m/s, corresponding to a median liver stiffness of 5.58 kPa. The IQR/median value is 0.13. This is indicative of a quality data set. Findings are indicative of a low elastography value which rules out advanced chronic liver disease in asymptomatic patients. REFERENCE: Society of Radiologists in Ultrasound Liver Stiffness Thresholds (2020): LIVER STIFFNESS THRESHOLDS: *Shear wave velocity less than 1.3 m/s (Liver Stiffness equal or less than 5 kPa): High probability of being normal. *Shear wave velocity less than 1.7 m/s (Liver Stiffness less than 9 kPa): In the absence of other known clinical signs, rules out compensated advanced chronic liver disease. *Shear wave velocity between 1.7-2.1 m/s (Liver Stiffness 9-13 kPa): Suggestive of compensated advanced chronic liver disease but need further test for confirmation. *Shear wave velocity between 2.1-2.4 m/s (Liver Stiffness 13-17 kPa): Rules in compensated advanced chronic liver disease. *Shear wave velocity greater than 2.4 m/s (Liver Stiffness over 17 kPa): Suggestive of clinically significant portal hypertension. QUALITY OF DATA SET: *IQR/Median value equal or less than 0.15 implies a quality data set. *IQR/Median value over 0.15 implies a poor quality data set. SIGNIFICANT CHANGE FROM PRIOR EXAM: Significant change if liver stiffness measurement is 10% or greater from prior exam. OTHER CONSIDERATIONS: The stage of liver fibrosis may be overestimated in the setting of acute hepatitis, liver inflammation, elevated liver function tests, hepatic vascular congestion, obstructive cholestasis, non-fasting state, and infiltrative diseases such as amyloidosis and lymphoma. In some patients with NAFLD, the liver stiffness thresholds for compensated advanced chronic liver disease may be lower. In causes other than viral hepatitis and NAFLD, liver stiffness thresholds are not well established. Electronically signed by: Mauro Madrid MD 12/20/2024 09:27 AM EDT
== END 2024-12-20 08:17 | disposition home or self-care (01) ==
LOC: HO.US 08:16
PROVIDERS: PCP Family Medicine; Visit Provider Surgery
DX: E66.01 Morbid (severe) obesity due to excess calories (principal); Z68.43 Body mass index [BMI] 50.0-59.9, adult; E28.2 Polycystic ovarian syndrome; E11.9 Type 2 diabetes mellitus without complications; E78.1 Pure hyperglyceridemia; E78.5 Hyperlipidemia, unspecified; R03.0 Elevated blood-pressure reading, without diagnosis of hypertension
CPT/HCPCS: 76700; 76981; 99211

== ENCOUNTER → 2024-12-20 08:21 | Outpatient (BNV) | payer OTHER, SELFPAY | PROVIDERS: PCP Family Medicine; Visit Provider Radiology Diagnostic Radiology | DX: K76.0 Fatty (change of) liver, not elsewhere classified (principal); R16.0 Hepatomegaly, not elsewhere classified | CPT/HCPCS: 76700 ==

== ENCOUNTER 2024-12-27 13:00 | Outpatient (AMB) | payer OTHER, SELFPAY ==
--- NOTE | 2024-12-27 13:05 | MHC.WMTHER ---
Intake Intake Visit Reasons: VIDEO Intake Part 2 Allergies bee pollen (BEE STINGS) Allergy (Unknown, Verified 12/13/24 06:56) ANAPHYLAXIS bee sting Allergy (Unknown, Uncoded 12/13/24 06:56) anaphylaxis FOR[facility], [facility] Medical History (Updated 12/13/24 @ 07:07 by Rena Stewart RN) History of flexible sigmoidoscopy Morbid obesity with BMI of 50.0-59.9, adult Asthma GERD (gastroesophageal reflux disease) PCOS (polycystic ovarian syndrome) Family History Mother Scarlet fever Maternal Uncle Substance use disorder Maternal Grandmother Ovarian cancer Other Diabetes Social History (Updated 09/24/24 @ 09:47 by Marleny Darden CMA) Household Members: Family Household Members Other:: mother, father, brother Both parents involved: Yes Caregiver staying overnight: No Housing: Apartment Are you a primary janitor caretaker to a significant other at home: No Do you presently have visiting nurse or other home services: No 75 years or older and lives alone: No Alcohol intake: current Alcohol intake frequency: holidays/special occasions only Patient Tobacco Use Status: Current someday Tobacco user Tobacco use type: Smokeless Tobacco Years Smoked: 2 months in college e-Cigarette/Vaping Use: Currently Using Second Hand Smoke Exposure: No service: No Current occupational status: employed 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 Current occupational exposures/hazards: No Cognitive needs: No Hearing needs: No Vision needs: No Female Reproductive History Menstrual Age of Menarche: 9 Behavioral Health Assessment Weight Management Therapy Therapy Notes Details Patient is a 29-year-old female presenting for her second behavioral health assessment as part of the surgical weight loss program. She reports difficulty adhering to her prescribed meal and exercise plan and acknowledges inconsistent communication with her care team. During the session, we explored barriers to engagement and collaboratively discussed strategies to implement a behavioral activation plan to enhance her participation and commitment to program expectations, which are essential for surgical candidacy. Additionally, the patient disclosed ongoing binge eating tendencies. We addressed the importance of managing these behaviors prior to proceeding with surgery, emphasizing the role of behavioral health support in achieving long-term success postoperatively. The patient expressed understanding and willingness to work on these areas moving forward. Presenting Concerns Referral Source WMP-Provider Reason for referral Completion of behavioral health assessment as part of process for weight-loss surgery. Precipitating Event Obesity. Living Situation Current Living Situation Relative's/Guardian's Tom At risk of losing current housing? No Satisfied with current living situation? Yes Comments PT lives with her parents, brother and 3 dogs. Food/Weight/Diet Expectations of change PT started the program on 10/19/2024 at 314Lbs and the initial goal to lose 10% of her weight before surgery, which is about 32lbs. Ultimate weight goal: 282lbs before surgery PT reports a recent weight of 312Lbs as of today 12/27/24. PT is implementing the following: Current meal plan: 2 protein shakes, 3 protein bars, and one meal per day. Exercise plan: stationary bike, 4 days a week. Scale: yes Communication with provider: Friday. History/Relationship with food PT reports she always had a love/hate relationship with food as food was her go-to for when upset or needed comfort. PT reports she tends to eat more when stressed. Example of meals before starting the program: Breakfast: Cereal w/ meals, toast w/ 3 scrambled eggs. Lunch: Skip formal lunch, but will have chips, soda and candy. Dinner: Rice, beans, any type of meat, mac and cheese. Take out 2x week. Snacks: Fruits or sweets. Drinks/Liquids: Coffee: none. Soda: 4-5 cans per day. Juice: None. Energy Drinks: 1-s 1x week. Water: History/Relationship with weight PT reports she was at a healthier weight in childhood, up until she turned 10 or 11 and was diagnosed with PCOS. PT recalls being under 200Lbs at age 11 and passing the 200Lbs in 9th grade. In the last 10 years, the patient's Lowest weight was 313Lbs and highest 320Lbs. PT reports all of her family is big. History/Relationship with dieting Gym membership, walks, self-diet by cutting sweets. Binge Eating Do you frequently eat large amounts of food in short periods of time, not feeling physically hungry? Yes Do you feel out of control when you eat a large amount of food in a short period of time? Yes Do you eat large amounts of food rapidly and typically alone? Yes Night Eating Do you wake up at least once during the night to eat? Yes If you wake up in the night, do you find that it is necessary to eat something in order to fall back asleep? Yes Do you have little or no appetite in the morning and feel very hungry in the evening, often overeating between dinner and when you go to bed? Yes Social History Family history and relationship PT is single, never , doesn't have children. Parents are , she had 2 siblings, 1 in 2013. PT lives with her parents and her 27 y/o brother. Here in the are she has 1 aunt and 2 cousins, rest of her family is in [place] and [place]. PT reports she has great family dynamics. Parental/Familial psychological anthropologist obligations None. Developmental history and status PT had an IEP for ESL. Currently WNL. Social support Parents, her brother, a close uncle, a close friend, her cousins. Community support PCP Yarsanism/Spirituality None. Cultural/Ethnic information . She was born in [place], been in the [place] age 6. Legal Involvement and History Current or historical involvement with the legal system? None reported. Education Highest grade completed HS - Certificate for [employer] Supervisor. Preferred learning style Learn by doing and Visual Currently enrolled in educational program? No Interested in further educational program? 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 ) Wants help to find employment? No Meaningful activities Reading, listen to music, hang out with friends. Financial Situation Describe current financial situation Occasional struggle Financial assistance? None Service Service? No Mental Health and Addiction Treatment Current/Past substance abuse? No Comments Alcohol: Social, 1-2 month. When drinks have 1-2 drinks. Cigarettes/Tobacco: No cigarettes. Vape: every couple months. Cannabis/Edibles: None. Current/Past addictive behavior concerns? No Psychiatric history The patient attended therapy as a child around age 9, brought in by her parents, though she does not recall the specific reason for counseling at that time. She reports a history of trauma at age 17 (in 2013). Following this, she was prescribed sertraline, which she took for a period of time. She discontinued all psychiatric medications two years ago, noting improvement in her mental health since then. The patient denies any current or past suicidal ideation, suicide attempts, self-harm behaviors, or thoughts of harm to others. Medical and Physical Health Summary Additional Medical History not covered in history None aditional Sexual History concerns None reported. Physical exam in the last year? Yes Pain Screening Current pain? Yes Pain in the last few months? Yes Comments Back pain. Medications Is the patient compliant with medications? Yes (Not taking Topiramate. ) Does the patient have Beltran Guardian in place? Not applicable Does the patient use complimentary health approaches? No Trauma/Abuse History History of trauma? Yes Other Past Questionnaires PHQ-9 Over the last 2 weeks, how often have you been bothered by any of the following problems? 1. Little interest or pleasure in doing things: not at all 2. Feeling down, depressed, or hopeless: not at all 3. Trouble falling or staying asleep, or sleeping too much: several days (sleeping too much ) 4. Feeling tired or having little energy: several days 5. Poor appetite or overeating: several days (overeating) 6. Feeling bad about yourself - or that you are a failure or have let yourself or your family down: not at all 7. Trouble concentrating on things, such as reading the newspaper or watching television: not at all 8. Moving or speaking so slowly that other people could have noticed. Or the opposite - being so fidgety or restless that you have been moving around a lot more than usual: not at all 9. Thoughts that you would be better off or of hurting yourself in some way: not at all Total score: 3 Depression Screening Interpretation: Negative Depression Screening Done: Yes 31965 - PHQ-9 Billing: Yes Source: Developed by Drs. Mauro Callaway, Justine Krishnan, Christiano June and colleagues, with an educational emelia from [employer]. Binge Eating Scale Group 1 A. I don't feel self-conscious about my wt. or body size when I'm with others. B. I feel concerned about how I look to others, but it normally does not make me fell disappointed with myself C. I do get self-conscious about my appearance and wt. which makes me feel disappointed in myself. D. I feel very self-conscious about my wt. and frequently I feel intense shame and disgust for myself. I try to avoid social contacts because of my self-consciousness. Response Group 1: C Group 2 A. I don't have any difficulty eating slowly in the proper manner. B. Although I seem to gobble down foods, I don't end up feeling stuffed because of eating to much. C. At times, I tend to eat quickly and then, I feel uncomfortably full afterwards. D. I have the habit of bolting down my food, without really chewing it. When this happens I usually feel uncomfortably stuffed because I've eaten to much. Response Group 2: B Group 3 A. I feel capable to control my eating urges when I want to. B. I feel like I have failed to control my eating more than the average person. C. I feel utterly helpless when it comes to feeling in control of my eating urges. D. Because I feel so helpless about controlling my eating I have become very desperate about trying to get control. Response Group 3: C Group 4 A. I don't have the habit of eating when I'm bored. B. I sometimes eat when I'm bored, but often I'm able to get busy and get my mind off food. C. I have a regular habit of eating when I'm bored, but occasionally, I can use some other activity to get my mind off eating. D. I have a strong habit of eating when I'm bored. Nothing seems to help me breath the habit. Response Group 4: D Group 5 A. I'm usually physically hungry when I eat something. B. Occasionally, I eat something on impulse even though I really am not hungry. C. I have the regular habit of eating foods, that I might not really enjoy, to satisfy a hungry feeling even though physically, I don't need the food. D. Although I'm not physically hungry, I get a hungry feeling in my mouth that only seems to be satisfied when I eat a food, like sandwich, that fills my mouth. Sometimes, when I eat the food to satisfy my mouth hunger, I then spit the food out so I won't gain weight. Response Group 5: B Group 6 A. I don't feel any guilt or self-hate after I overeat. B. After I overeat, occasionally I feel guilt or self-hate. C. Almost all the time I experience strong guilt or self-hate after I overeat. Response Group 6: C Group 7 A. I don't lose total control of my eating when dieting even after periods when I overeat. B. Sometimes when I eat a forbidden food on a diet, I feel like I blew it and eat even more. C. Frequently, I have the habit of saying to myself, I've blown it now, why not go all the way, when I overeat on a diet. When that happens I eat more. D. I have a regular habit of starting a strict diets for myself but I break the diets by going on an eating binge. My life seems to be either a feast or famine. Response Group 7: D Group 8 A. I rarely eat so much food that I feel uncomfortably stuffed afterwards. B. Usually about once a month, I each such a quantity of food, I end up feeling very stuffed. C. I have regular periods during the month when I eat large amounts of food, either at mealtime or at snacks. D. I eat so much food that I regularly feel quite uncomfortable after eating and sometimes a bit nauseous. Response Group 8: D Group 9 A. My level of calorie intake does not go up very high or go down very low on a regular basis. B. Sometimes after I overeat, I will try to reduce my caloric intake to almost nothing to compensate for the excess calories I've eaten. C. I have a regular habit of overeating during the night. It seems that my routine is not to be hungry in the morning but overeat in the evening. D. In my adult years, I have had week-long periods where I practically starve myself. This follows periods when I overeat. It seems I live a life of either feast or famine. Response Group 9: C Group 10 A. I usually am able to stop eating when I want to. I know when enough is enough. B. Every so often, I experience a compulsion to eat which I can't seem to control. C. Frequently, I experience strong urges to eat which I seem unable to control, but at other times I can control my eating urges. D. I feel incapable of controlling urges to eat. I have a fear of not being able to stop eating voluntarily. Response Group 10: C Group 11 A. I don't have any problem stopping eating when I feel full. B. I usually can stop eating when I feel full but occasionally overeat leaving me feeling uncomfortably stuffed. C. I have a problem stopping eating once I start and usually I feel uncomfortably stuffed after I eat a meal. D. Because I have a problem not being able to stop eating when I want, I sometimes have to induce vomiting to relieve my stuffed feeling. Response Group 11: C Group 12 A. I seem to eat just as much when I'm with others, Family social gatherings as when I'm by myself. B. Sometimes, when I'm with other persons, I don't eat as much as I want to eat because I'm self-conscious about my eating. C. Frequently, I eat only a small amount of food when others are present, because I'm very embarrassed about my eating. D. I feel so ashamed about overeating that I pick times to overeat when I know no one will see me. I feel like a closet eater. Response Group 12: C Group 13 A. I eat three meals a day with only an occasional between meal snack. B. I eat 3 meals a day, but I also normally snack between meals. C. When I am snacking heavily, I get in the habit of skipping regular meals. D. There are regular periods when I seem to be continually eating, with no planned meals. Response Group 13: D Group 14 A. I don't think much about trying to control unwanted eating urges. B. At least some of the time, I feel my thoughts are pre-occupied with trying to control my eating urges. C. I feel that frequently I spend much time thinking about how much I ate or about trying not to eat anymore. D. It seems to me that most of my waking hours are pre-occupied by thoughts about eating or not eating. I feel like I'm constantly struggling not to eat. Response Group 14: D Group 15 A. I don't think about food a great deal. B. I have strong craving for food but they last only for brief periods of time. C. I have days when I can't seem to think about anything else but food. D. Most of my days seem to be pre-occupied with thoughts about food. I feel like I live to eat. Response Group 15: B Group 16 A. I usually know whether or not I'm physically hungry. I take the right portion of food to satisfy me. B. Occasionally, I feel uncertain about knowing whether or not I'm physically hungry. A these times it's hard to know how much food I should take to satisfy me. C. Even though I might know how many calories I should eat, I don't have any idea what is a normal amount of food for me. 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 -Patient has agreed to engage in ongoing behavioral health sessions focused on addressing disordered eating patterns, with an emphasis on Cognitive Behavioral Therapy (CBT) techniques to improve eating behaviors and coping strategies. -This provider will communicate with the surgical team to update them on the patient?s current status and treatment plan. Progress will be reassessed after 2?4 sessions to determine readiness for surgical clearance. -Patient will follow up in 2 weeks. Next appointment scheduled for 01/13/2025 at 11:00 AM via video. Telehealth Telehealth Telehealth Platform: [facility] Location of provider rendering services: other (Home office. [place], [place]) Location of patient: address on file Patient Identification confirmed using: Name, : Yes Telehealth method: video Patient verbally consented to treatment: Yes Patient verbally consented to billing insurance company: Yes Patient informed of any privacy concerns related to visit: Yes Minutes spent on Phone/Video with Pt.: 60 Coding Level of Care Code Established Pt Tele Psytx >53 mins ([id number]) Patient Type Established Diagnoses Trauma and stressor-related disorder F43.9 Inappropriate diet or eating habits Z72.4 Pre-bariatric surgery psychological evaluation Z71.89 Additional Codes PHQ-9 - 04541 - PHQ-9 Billing: Yes ([id number]) Time Spent (min) 60
== END 2024-12-28 09:44 | disposition home or self-care (01) ==
LOC: HO.HBST 13:15
PROVIDERS: PCP Family Medicine; Visit Provider Counselor Mental Health
DX: F43.9 Reaction to severe stress, unspecified (principal); Z72.4 Inappropriate diet and eating habits; Z71.89 Other specified counseling
CPT/HCPCS: 90837

== ENCOUNTER 2025-01-13 11:14 | Outpatient (AMB) | payer OTHER, SELFPAY ==
--- NOTE | 2025-01-13 11:10 | A.OFFWM_ITS ---
Intake Intake Visit Reasons: VIDEO F/U Allergies bee pollen (BEE STINGS) Allergy (Unknown, Verified 12/13/24 06:56) ANAPHYLAXIS bee sting Allergy (Unknown, Uncoded 12/13/24 06:56) anaphylaxis [facility] Medical History (Updated 01/05/25 @ 15:24 by Nancie Hannon MA) Migraine without aura History of flexible sigmoidoscopy Morbid obesity with BMI of 50.0-59.9, adult Asthma GERD (gastroesophageal reflux disease) PCOS (polycystic ovarian syndrome) Family History Mother Scarlet fever Maternal Uncle Substance use disorder Maternal Grandmother Ovarian cancer Other Diabetes Social History (Updated 09/24/24 @ 09:47 by Marleny Darden CMA) Household Members: Family Household Members Other:: mother, father, brother Both parents involved: Yes Caregiver staying overnight: No Housing: Apartment Are you a primary acute care certified nursing assistant to a significant other at home: No Do you presently have visiting nurse or other home services: No 75 years or older and lives alone: No Alcohol intake: current Alcohol intake frequency: holidays/special occasions only Patient Tobacco Use Status: Current someday Tobacco user Tobacco use type: Smokeless Tobacco Years Smoked: 2 months in college e-Cigarette/Vaping Use: Currently Using Second Hand Smoke Exposure: No service: No Current occupational status: employed 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 Current occupational exposures/hazards: No Cognitive needs: No Hearing needs: No Vision needs: No Female Reproductive History Menstrual Age of Menarche: 9 Behavioral Health Assessment Weight Management Therapy Therapy Notes Details Subjective: Patient reports she was ill a couple of weeks ago following vaccinations, which led her to primarily consume canned soups and crackers. She has resumed her meal plan this week. She last spoke with her physician on Friday, at which time her weight was 312 lbs. She occasionally experiences cravings for sweets but is managing these urges better, even when her family eats different foods or orders takeout. Objective: The patient presented for a pre-operative behavioral health follow-up session via Telehealth. During the session, we discussed the impact of family dynamics on her eating habits, particularly the challenges she faces when her family?s dietary choices differ from her current meal plan. We explored coping skills and alternative strategies to manage food-related thoughts and specific triggers, such as cravings for sweets and situations when her family orders her favorite foods. Psychoeducation was provided regarding the development of a rational relationship with food, the influence of mood on decision-making, and the importance of not skipping meals, including a review of recommended portion sizes. Together, we brainstormed ways to enhance her consistency and discipline with meal planning and developed an organizational strategy using a behavioral activation plan to support adherence. Interventions in this session aimed to address maladaptive thoughts related to food, to increase awareness of eating patterns and triggers, to support her readiness for change and reinforce progress, and encouraging the use of mindfulness-based strategies to manage cravings and emotional eating. Assessment/Response: * Mental status: WNL * Risk reported/identified: None Food/Weight/Diet Expectations of change PT started the program on 10/19/2024 at 314Lbs and the initial goal to lose 10% of her weight before surgery, which is about 32lbs. Ultimate weight goal: 282lbs before surgery PT reports a recent weight of 312Lbs as of today 12/27/24. PT is implementing the following: Current meal plan: 2 protein shakes, 3 protein bars, and one meal per day. Exercise plan: stationary bike, 4 days a week. Scale: yes Communication with provider: Friday. Assessment & Plan Assessment & Plan (1) Trauma and stressor-related disorder: Code(s): F43.9 - Reaction to severe stress, unspecified (2) Inappropriate diet or eating habits: Code(s): Z72.4 - Inappropriate diet and eating habits Plan Follow-up in 3 weeks: 02/01/2025 at 11:00 am. Telehealth Telehealth Telehealth Platform: [employer] Location of provider rendering services: other (Home office. [place], [place]) Location of patient: address on file Patient Identification confirmed using: Name, : Yes Telehealth method: video Patient verbally consented to treatment: Yes Patient verbally consented to billing insurance company: Yes Patient informed of any privacy concerns related to visit: Yes Minutes spent on Phone/Video with Pt.: 50 Coding Level of Care Code Established Pt Tele Psytx 45 mins ([id number]) Patient Type Established Diagnoses Trauma and stressor-related disorder F43.9 Inappropriate diet or eating habits Z72.4 Time Spent (min) 50
== END 2025-01-13 12:02 | disposition home or self-care (01) ==
LOC: HO.HBST 11:14
PROVIDERS: PCP Family Medicine; Visit Provider Counselor Mental Health
DX: F43.9 Reaction to severe stress, unspecified (principal); Z72.4 Inappropriate diet and eating habits
CPT/HCPCS: 90834

== ENCOUNTER 2025-02-01 11:15 | Outpatient (AMB) | payer OTHER, SELFPAY ==
--- NOTE | 2025-02-01 11:10 | MHC.WMTHER ---
Intake Intake Visit Reasons: VIDEO F/U Allergies bee pollen (BEE STINGS) Allergy (Unknown, Verified 12/13/24 06:56) ANAPHYLAXIS bee sting Allergy (Unknown, Uncoded 12/13/24 06:56) anaphylaxis [facility] Medical History (Updated 01/05/25 @ 15:24 by Nancie Hannon MA) Migraine without aura History of flexible sigmoidoscopy Morbid obesity with BMI of 50.0-59.9, adult Asthma GERD (gastroesophageal reflux disease) PCOS (polycystic ovarian syndrome) Family History Mother Scarlet fever Maternal Uncle Substance use disorder Maternal Grandmother Ovarian cancer Other Diabetes Social History (Updated 09/24/24 @ 09:47 by Marleny Darden CMA) Household Members: Family Household Members Other:: mother, father, brother Both parents involved: Yes Caregiver staying overnight: No Housing: Apartment Are you a primary care companion to a significant other at home: No Do you presently have visiting nurse or other home services: No 75 years or older and lives alone: No Alcohol intake: current Alcohol intake frequency: holidays/special occasions only Patient Tobacco Use Status: Current someday Tobacco user Tobacco use type: Smokeless Tobacco Years Smoked: 2 months in college e-Cigarette/Vaping Use: Currently Using Second Hand Smoke Exposure: No service: No Current occupational status: employed 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 Current occupational exposures/hazards: No Cognitive needs: No Hearing needs: No Vision needs: No Female Reproductive History Menstrual Age of Menarche: 9 Behavioral Health Assessment Weight Management Therapy Therapy Notes Details Subjective: Patient reports improvement in adherence to her meal and exercise plan. Most recent weight is 309 lbs; she sent her measurements to the surgeon as requested on Friday. She describes increased physical activity, including walking her dogs and making an effort to walk more at work. Patient states that things at home are going well and expresses excitement about an upcoming trip to [place] for Thanksgiving to visit family. Objective: Patient attended a pre-operative follow-up session via Telehealth. She was engaged and able to discuss her current functioning, progress, and ongoing challenges. The session focused on behavioral modification strategies to support weight-loss goals. Explored the distinction between motivation and discipline, and introduced habit-building techniques to promote long-term adherence. Reviewed strategies for maintaining her meal and exercise plan, particularly around the holidays, and discussed techniques for managing potential triggers for overeating. Assessment/Response: Mental status: Alert and oriented x3. Mood euthymic, affect congruent. Thought process logical and goal-directed. No evidence of psychosis or cognitive impairment. Risk reported/identified: Denies suicidal or homicidal ideation, intent, or plan. No acute safety concerns identified at this time. Patient is making progress with behavioral modifications but is not yet fully cleared for weight-loss surgery from a behavioral health perspective. Continued monitoring and support are recommended to ensure sustained readiness. Food/Weight/Diet Expectations of change PT started the program on 10/19/2024 at 314Lbs and the initial goal to lose 10% of her weight before surgery, which is about 32lbs. Ultimate weight goal: 282lbs before surgery PT reports a recent weight of 312Lbs as of today 12/27/24. PT is implementing the following: Current meal plan: 2 protein shakes, 3 protein bars, and one meal per day. Exercise plan: stationary bike and walking, 4 days a week. Scale: yes Communication with provider: Friday. Assessment & Plan Assessment & Plan (1) Trauma and stressor-related disorder: Code(s): F43.9 - Reaction to severe stress, unspecified (2) Inappropriate diet or eating habits: Code(s): Z72.4 - Inappropriate diet and eating habits Plan Continue to reinforce behavioral strategies for weight management. Encourage ongoing use of habit-building and self-monitoring techniques. Provide additional support for managing eating behaviors during the holidays. Reassess for behavioral health clearance at next visit. Follow-up appointment scheduled for 02/22/2025 at 11am. Telehealth. Telehealth Telehealth Telehealth Platform: [facility] Location of provider rendering services: other (Home office. [place], [place]) Location of patient: address on file Patient Identification confirmed using: Name, : Yes Telehealth method: video Patient verbally consented to treatment: Yes Patient verbally consented to billing insurance company: Yes Patient informed of any privacy concerns related to visit: Yes Minutes spent on Phone/Video with Pt.: 45 [place]oding [place] [address] Tele Psytx 45 mins Patient Type Established Diagnoses Trauma and stressor-related disorder F43.9 Inappropriate diet or eating habits Z72.4 Time Spent (min) 45
== END 2025-02-01 12:26 | disposition home or self-care (01) ==
LOC: HO.HBST 11:15
PROVIDERS: PCP Family Medicine; Visit Provider Counselor Mental Health
DX: F43.9 Reaction to severe stress, unspecified (principal); Z72.4 Inappropriate diet and eating habits
CPT/HCPCS: 90834

== ENCOUNTER 2025-02-07 09:09 | Outpatient (AMB) | payer OTHER, SELFPAY ==
--- NOTE | 2025-02-07 09:22 | A.OFFPC_ITS ---
Vital Signs 02/07/25 09:26 Height 5 ft 2 in Weight 310 lb 8 oz BMI 56.8 BP 124/80 Blood Pressure Location Rt brachial Position Sitting Respiration 12 Pulse 81 Pulse Source Pulse Oximeter Temp 97.5 F Temp Source Oral Pulse Oximetry (%) 97 Oxygen Delivery Method Room Air Intake Visit Reasons: f/u diabetes- repeat A1C Intake Note: patient is scheduled for dm follow up with pcp Rn Hemodialysis Charge Required: No Allergies bee pollen (BEE STINGS) Allergy (Unknown, Verified 02/07/25 09:22) ANAPHYLAXIS bee sting Allergy (Unknown, Uncoded 12/13/24 06:56) anaphylaxis Medication List - Last Reconciled 02/07/25 by Vazquez Montilla MD albuterol sulfate 90 mcg/actuation 2 puffs inhalation Q4-6H PRN blood sugar diagnostic (FreeStyle Lite Strips) Use once daily As directed to check blood glucose blood-glucose meter (FreeStyle Lite Meter kit) Use daily As directed to check blood sugars cholecalciferol (vitamin D3) 125 mcg PO DAILY cholecalciferol (vitamin D3) 50 mcg PO DAILY 90 days clotrimazole 1% 1 appl topical BID 2 weeks epinephrine (EpiPen) 0.3 mg (0.3 mL) IM Q4H PRN famotidine 20 mg PO BEDTIME 30 days fluticasone propionate 50 mcg/actuation (Flonase Allergy Relief) 2 sprays intranasal DAILY glipizide 5 mg PO DAILY 30 days lancets (FreeStyle Lancets) use daily as directed to check blood glucose mecobalamin (vitamin B12) 1,000 mcg sublingual DAILY spironolactone (Aldactone) 75 mg (1.5 x 50 mg) PO QAM 90 days sumatriptan succinate take 1 tab at onset of headache; if no relief may repeat 1 tab after at least 2 hrs; max = 4 tabs/24 hr PO tirzepatide (Mounjaro) 10 mg (0.5 mL) subcut QWEEK topiramate 50 mg PO BID topiramate XR 50 mg PO DAILY Tobacco use date assessed: 07/15/24 Dental Screening Dental Screen Date: 07/15/24 HPI f/u diabetes- repeat A1C HPI Details 29 y/o female presents to f/u diabetes. Last A1c in October 7.4%. Had added glipizide. Had been steadily getting her mounjaro increased. A1c today 02/07/25 is 6.1%. Pt notes last diabetic eye exam was some time this year. [facility] Medical History (Updated 01/05/25 @ 15:24 by Nancie Hannon MA) Migraine without aura History of flexible sigmoidoscopy Morbid obesity with BMI of 50.0-59.9, adult Asthma GERD (gastroesophageal reflux disease) PCOS (polycystic ovarian syndrome) Family History Mother Scarlet fever Maternal Uncle Substance use disorder Maternal Grandmother Ovarian cancer Other Diabetes Social History (Updated 09/24/24 @ 09:47 by Marleny Darden CMA) Household Members: Family Household Members Other:: mother, father, brother Both parents involved: Yes Caregiver staying overnight: No Housing: Apartment Are you a primary care professionals to a significant other at home: No Do you presently have visiting nurse or other home services: No 75 years or older and lives alone: No Alcohol intake: current Alcohol intake frequency: holidays/special occasions only Patient Tobacco Use Status: Current someday Tobacco user Tobacco use type: Smokeless Tobacco Years Smoked: 2 months in college e-Cigarette/Vaping Use: Currently Using Second Hand Smoke Exposure: No service: No Current occupational status: employed 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 Current occupational exposures/hazards: No Cognitive needs: No Hearing needs: No Vision needs: No Female Reproductive History Menstrual Age of Menarche: 9 Questionnaire Thrive Questionnaire Date Thrive assessed: 06/24/24 I am a: Patient What is your living situation today?: I have a steady place to live Within the past 12 months, did the food you bought not last and you didn't have the money to get more?: I choose not to answer this question Within the past 12 months, did you worry whether your food would run out before you got money to buy more?: I choose not to answer this question Do you have trouble paying for medicines?: I choose not to answer this question Do you have trouble getting transportation to medical appointments?: I choose not to answer this question Do you have trouble paying your heating and electricity bill?: I choose not to answer this question Do you have trouble taking care of your child, family member or friend?: I ch oose not to answer this question Do you have trouble with day-to-day activities such as bathing, preparing meals, shopping, managing finances, etc.?: I choose not to answer this question Are you currently unemployed and looking for a job?: I choose not to answer this question Are you interested in more education?: I choose not to answer this question Please select the resources that you would like help with: None Currently or been in a relationship where the following occur: No concerns reported THRIVE Score: 0 ALIA-7 AMB Questionnaire ALIA-7 Date ALIA - 7 assessed: 06/19/23 Source: Developed by Drs. Mauro Callaway, Justine Krishnan, Christiano June and colleagues, with an educational emelia from [employer] Review of Systems Const Denies chills, Denies fatigue, Denies fever(s), Denies headache(s) and Denies weakness ENT Denies dizziness and Denies headache(s) Card Denies dyspnea Resp Denies cough, Denies dyspnea, Denies wheezing and Denies other (shortness of breath) Musc Denies numbness and Denies tingling Neuro Denies dizziness, Denies headache(s), Denies numbness, Denies tingling and Denies weakness Psych Denies anxiety and Denies depression Endo Denies fatigue Aller/Immun Denies wheezing Physical exam (Primary Care) Vital Signs: Last Vital Signs Temp 97.5 F 02/07/25 09:26 Pulse 81 02/07/25 09:26 Resp 12 02/07/25 09:26 BP 124/80 02/07/25 09:26 Pulse Ox 97 02/07/25 09:26 Oxygen Delivery Method Room Air 02/07/25 09:26 BMI result Body Mass Index 56.8 Tobacco/Smoking Status: Tobacco use Status Tobacco use date assessed 07/15/24 02/07/25 09:26 Patient Tobacco Use Status Current someday Tobacco 02/07/25 09:26 Tobacco use type Smokeless Tobacco 02/07/25 09:26 e-Cigarette/Vaping Use Currently Using 02/07/25 09:26 Thrive Assessment: Date of Thrive Assessment Date Thrive assessed 06/24/24 02/07/25 09:26 Currently or been in a relationship where the following occur: No concerns reported Const General: well developed; No acute distress Nutritional Appearance: well nourished and obese morbidly obese Orientation/consciousness: patient oriented x3 HENMT Head: Yes normocephalic and Yes atraumatic Eyes General: appearance normal, both eyes and all related structures Pupils: Equal, round and reactive pupils present EOM: EOMs intact bilaterally Resp Effort & Inspection: normal respiratory effort Auscultation: clear to auscultation bilaterally Cardio Rate: regular rate Rhythm: regular rhythm Heart sounds: S1 normal heart sound present, S2 normal heart sound present, no gallops, no murmurs and no rubs Neuro General: patient oriented x3 and gait normal Cranial nerves: Yes Equal, round and reactive pupils present Psych Affect: normal affect Results AMB Hemoglobin A1c AMB Hemoglobin A1c 6.1 % Last Edit by DANIEL Storm on 02/07/25 09:34 Results Reviewed Results Reviewed: Laboratory Last Values Hgb A1c (Clinic) 6.1 % (4.0-6.0) H 02/07/25 09:31 Coding Level of Care Code Est Pt Level 4 (96943) Diagnoses Diabetes E11.9 Morbid obesity E66.01 Vitamin D deficiency E55.9 Assessment & Plan Assessment & Plan (1) Diabetes: Code(s): E11.9 - Type 2 diabetes mellitus without complications Category: Medical Plan: A1c improved from 7.5% to 6.1% today. Mounjaro dose has been increasing She is still taking glipizide 5 mg daily as well Followed by endocrinology and also weight management. Continue Mounjaro as prescribed. Will decrease glipizide from 5 mg daily to 2.5 mg daily. Continue diabetic diet and weight loss Patient says she has seen her eye doctor for a diabetic eye exam this past year. She will upload the report. (2) Morbid obesity: Code(s): E66.01 - Morbid (severe) obesity due to excess calories Category: Medical Plan: Followed by weight management She is losing weight and taking Mounjaro Continue Mounjaro Follow-up with weight management (3) Vitamin D deficiency: Code(s): E55.9 - Vitamin D deficiency, unspecified Category: Medical Plan: Had been giving her a vitamin-D supplement. This has been increased by weight management. Will recheck her vitamin-D level with her next blood draw Orders: Orders Microalbumin, Random (w Creat) Today I10 - Essential (primary) hypertension Lipid Panel Today Z00.00 - Encounter for general adult medical examination without abnormal findings TSH reflex Free T4 Today Z00.00 - Encounter for general adult medical examination without abnormal findings AMB Hemoglobin A1c Today E11.9 - Type 2 diabetes mellitus without complications Comprehensive [place]. Panel Fast Today Z00.00 - Encounter for general adult medical examination without abnormal findings Complete Blood Count Auto Diff Today Z00.00 - Encounter for general adult medical examination without abnormal findings UA CC w/rflx Micro + Cult Today Z00.00 - Encounter for general adult medical examination without abnormal findings Vitamin D 25-OH Total Today E55.9 - Vitamin D deficiency, unspecified
[2025-02-07 09:26] VITALS: BP 124/80; PULSE 81; RESP 12; TEMP 36.4; O2SAT 97; BMI 56.8
== END 2025-02-07 09:44 | disposition home or self-care (01) ==
LOC: HO.HMCFM 09:10
PROVIDERS: PCP Family Medicine; Visit Provider Family Medicine
DX: E11.9 Type 2 diabetes mellitus without complications (principal); E66.01 Morbid (severe) obesity due to excess calories; Z68.43 Body mass index [BMI] 50.0-59.9, adult; E55.9 Vitamin D deficiency, unspecified

== ENCOUNTER 2025-02-07 09:09 | Outpatient (REF) | payer OTHER, SELFPAY ==
[2025-02-07 12:03] LABS: MANUAL DIFF FLAG NO
[2025-02-07 12:05] LABS: Hematocrit 41.4 % (37.0-47.0); Hemoglobin 13.3 g/dl (12.0-16.0); Imm Gran Abs Auto 0.03 X10*3/uL (0.00-0.03); Imm Gran Pct Auto 0.3 % (0.0-0.4); Lymphocytes Absolute Auto 3.0 X10*3/uL (1.2-4.9); Mean Corpuscular HGB Conc 32.1 g/dl (31.0-35.0); Mean Corpuscular Hemoglobin 27.8 pg (27.0-33.0); Mean Corpuscular Volume 86.6 fL (80.0-98.0); NRBC Abs Auto 0.000 X10*3/uL (0.0-0.012); NRBC Pct Auto 0.0 /100WBC (0.0-0.2); Platelet Count 342 X10*3/uL (160-400); Red Blood Count 4.78 X10*6/uL (4.20-5.50); White Blood Count 9.3 X10*3/uL (4.8-10.8)
[2025-02-07 12:59] LABS: Alanine Aminotransferase 22 U/L (0-31); Albumin Level 4.2 g/dL (3.5-5.0); Alkaline Phosphatase 72 U/L (39-117); Anion Gap 11 (12-20); Aspartate Amino Transferase 23 U/L (5-31); Blood Urea Nitrogen 10 mg/dL (9-16); Calcium 9.1 mg/dL (8.4-10.2); Carbon Dioxide 23 mmol/L (22-29); Chloride 110 mmol/L (96-108); Cholesterol 220 mg/dL (<200); Estimated Glomerular Filt Rate > 60; HDL Cholesterol 42 mg/dL (>40); Potassium 3.7 mmol/L (3.3-5.1); Sodium 140 mmol/L (135-145); Total Protein 7.0 g/dL (6.5-8.0); Triglycerides 315 mg/dL (<150)
[2025-02-07 14:40] LABS: Appearance Urine Clear; Glucose Urine UA Negative (Negative); PH 5.5 (5.0-9.0); Specific Gravity - Urine 1.020 (1.005-1.025); UMIC TRIGGER UACC YES
[2025-02-07 14:55] LABS: UACC Culture Trigger YES
[2025-02-07 15:14] LABS: Microalbum/Creatinine Ratio Ur 9.3 ug/mg cr (<30)
== END 2025-02-07 09:10 | disposition home or self-care (01) ==
LOC: HO.WFDLDS 09:09
PROVIDERS: Physician Assistant; PCP Family Medicine; Visit Provider Family Medicine
DX: Z00.00 Encounter for general adult medical examination without abnormal findings (principal); E55.9 Vitamin D deficiency, unspecified; E11.9 Type 2 diabetes mellitus without complications; E66.01 Morbid (severe) obesity due to excess calories; E78.5 Hyperlipidemia, unspecified; R79.89 Other specified abnormal findings of blood chemistry; I10 Essential (primary) hypertension; Z68.43 Body mass index [BMI] 50.0-59.9, adult; Z79.84 Long term (current) use of oral hypoglycemic drugs; Z79.899 Other long term (current) drug therapy
CPT/HCPCS: 36415; 80053; 80061; 81001; 82043; 82306; 82570; 83036; 84443; 85025; 87086; 99212

== ENCOUNTER 2025-02-09 09:34 | Outpatient (REF) | payer OTHER, SELFPAY ==
--- NOTE | ~2025-02-09 | FL_ITS ---
EXAMINATION: XR FLUOROSCOPY UPPER GI WITH AIR CLINICAL INFORMATION: Orbits/severe obesity due to excess calories COMPARISON: None available. TECHNIQUE: Routine upper GI air contrast study was performed in upright and lying position. FINDINGS: Following oral administration of thick barium and effervescent granules is normal propagation bolus from the oral cavity through the pharynx, esophagus into stomach without obstruction, narrowing or stricture. The course, caliber and peristalsis of the stomach and the duodenal bulb is normal. The mucosal pattern of stomach and duodenum is normal. There is no gastroesophageal reflux or hiatal hernia. FLUOROSCOPY TIME: 1 minute and 30 seconds DOSE AREA PRODUCT: 2066 uGy-m2 (microgray-meter squared) FL/FL upper GI w air IMPRESSION: Unremarkable upper GI air contrast study. Electronically signed by: Caden Owusu MD 02/09/2025 11:59 AM DESIRE
== END 2025-02-09 09:35 | disposition home or self-care (01) ==
LOC: HO.XRAY 09:34
PROVIDERS: PCP Family Medicine; Visit Provider Surgery
DX: E11.69 Type 2 diabetes mellitus with other specified complication (principal); E66.01 Morbid (severe) obesity due to excess calories; E78.5 Hyperlipidemia, unspecified; E28.2 Polycystic ovarian syndrome; E78.1 Pure hyperglyceridemia; R03.0 Elevated blood-pressure reading, without diagnosis of hypertension; Z68.43 Body mass index [BMI] 50.0-59.9, adult
CPT/HCPCS: 74246

== ENCOUNTER → 2025-02-09 09:36 | Outpatient (BNV) | payer OTHER, SELFPAY | PROVIDERS: PCP Family Medicine; Visit Provider Radiology Diagnostic Radiology | DX: E66.01 Morbid (severe) obesity due to excess calories (principal); Z68.43 Body mass index [BMI] 50.0-59.9, adult | CPT/HCPCS: 74246 ==

== ENCOUNTER 2025-02-22 11:23 | Outpatient (AMB) | payer OTHER, SELFPAY ==
--- NOTE | 2025-02-22 11:05 | A.OFFWM_ITS ---
Intake Intake Visit Reasons: VIDEO F/U Allergies bee pollen (BEE STINGS) Allergy (Unknown, Verified 02/07/25 09:22) ANAPHYLAXIS bee sting Allergy (Unknown, Uncoded 12/13/24 06:56) anaphylaxis [facility] Medical History (Updated 01/05/25 @ 15:24 by Nancie Hannon MA) Migraine without aura History of flexible sigmoidoscopy Morbid obesity with BMI of 50.0-59.9, adult Asthma GERD (gastroesophageal reflux disease) PCOS (polycystic ovarian syndrome) Family History Mother Scarlet fever Maternal Uncle Substance use disorder Maternal Grandmother Ovarian cancer Other Diabetes Social History (Updated 09/24/24 @ 09:47 by Marleny Darden CMA) Household Members: Family Household Members Other:: mother, father, brother Both parents involved: Yes Caregiver staying overnight: No Housing: Apartment Are you a primary intensive care specialist to a significant other at home: No Do you presently have visiting nurse or other home services: No 75 years or older and lives alone: No Alcohol intake: current Alcohol intake frequency: holidays/special occasions only Patient Tobacco Use Status: Current someday Tobacco user Tobacco use type: Smokeless Tobacco Years Smoked: 2 months in college e-Cigarette/Vaping Use: Currently Using Second Hand Smoke Exposure: No service: No Current occupational status: employed 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 Current occupational exposures/hazards: No Cognitive needs: No Hearing needs: No Vision needs: No Female Reproductive History Menstrual Age of Menarche: 9 Behavioral Health Assessment Weight Management Therapy Therapy Notes Details Subjective: Patient reports her weight has increased to 306 lbs. She describes a busy period at work, which has limited her ability to exercise. She continues to reduce soda intake and has been choosing fruits (cherries, apples, berries) as snacks, with cookie consumption reduced to 0?1 per week. Patient notes increased awareness of food labels and caloric content, which she feels is helping her make healthier choices. She reports improved family support, with family members joining her in exercise. Patient expresses concern about maintaining her meal plan during an upcoming lta-ja-ezmel family visit for the . Objective: Cognitive-behavioral therapy (CBT) interventions were utilized, including cognitive restructuring to address ggt-wj-[id number] thinking around food choices and body image and to challenge rigid beliefs about food. Collaborative goal setting targeted realistic short-term goals for activity and mindful eating, with a focus on fitting exercise into her schedule. Mindfulness techniques and strategies like urge surfing were practiced for managing binge-eating urges. Relapse prevention addressed high-risk situations, including holiday travel, with coping plans such as assertive communication and meal pre-planning. Psychoeducation covered the impact of stress on eating and the value of self- compassion. The patient was reminded that consistent adherence to the program?s meal and exercise expectations is essential for demonstrating readiness for surgery, as these are hanna pre-operative requirements. Emphasis was placed on building discipline and routine, rather than relying solely on motivation, to support long-term success and surgical eligibility. The patient responded well to interventions, actively participated in skill-building, and verbalized understanding of the strategies and expectations discussed. Assessment/Response: * Mental status: Patient is alert, cooperative, and displays appropriate affect. Thought processes are logical and goal-directed. No evidence of psychosis, layla, or severe mood disturbance. Insight and judgment are intact. * Risk reported/identified: No current suicidal or homicidal ideation. No evidence of self-harm or acute safety concerns. Patient does report ongoing struggles with binge-eating tendencies but is motivated to address these be haviors. Assessment & Plan Assessment & Plan (1) Trauma and stressor-related disorder: Code(s): F43.9 - Reaction to severe stress, unspecified (2) Inappropriate diet or eating habits: Code(s): Z72.4 - Inappropriate diet and eating habits Plan Patient is making incremental progress in dietary awareness and reducing unhealthy snacking, but continues to struggle with adherence to her meal and exercise plan, particularly during periods of increased stress and schedule changes. She will continue to work on habit formation, mindful eating, and coping strategies for high-risk situations. This provider will consult with the surgeon regarding the patient?s communication and readiness for surgical clearance at the next appointment. Patient agreed to the plan and will be reassessed at the next visit. * Next appointment:?04/19/25 at 10:00 AM via Telehealth. Telehealth Telehealth Telehealth Platform: [facility] Location of provider rendering services: other (Home office. [place], [place]) Location of patient: address on file Patient Identification confirmed using: Name, : Yes Telehealth method: video Patient verbally consented to treatment: Yes Patient verbally consented to billing insurance company: Yes Patient informed of any privacy concerns related to visit: Yes [place] [address] Tele Psytx 45 mins Patient Type Established Diagnoses Trauma and stressor-related disorder F43.9 Inappropriate diet or eating habits Z72.4 Time Spent (min) 50
== END 2025-02-22 13:33 | disposition home or self-care (01) ==
LOC: HO.HBST 11:23
PROVIDERS: PCP Family Medicine; Visit Provider Counselor Mental Health
DX: F43.9 Reaction to severe stress, unspecified (principal); Z72.4 Inappropriate diet and eating habits
CPT/HCPCS: 90834